=== PATIENT | female | born 1955 | race Caucasian/White ===

== ENCOUNTER → 2016-05-03 | Outpatient (CLI) | payer MEDICARE, OTHER ==
--- NOTE | 2016-05-03 16:18 | CT ---
EXAMINATION TYPE: CT abdomen wo con DATE OF EXAM: 05/03/2016 4:01 PM HISTORY: No complaints at time of service, cirrhosis per order. CT DLP: 441 mGycm. Automated Exposure Control for Dose Reduction was Utilized. TECHNIQUE: CT scan of the abdomen is performed without oral or IV contrast. COMPARISON: NONE FINDINGS: Within the limitations of a non-contrast study, the following observations are made. LUNG BASES: Some linear scarring and/or atelectasis in both lung bases is felt present. LIVER/GB: Gallbladder is not visualized presumed surgically absent. There is moderate extrahepatic an d central intrahepatic biliary dilatation felt present with common bile duct measuring up to 17 to 18 mm on coronal image 30 and axial image 21. Liver is somewhat small in size. There is 4 mm calcificat ion left hepatic lobe may be within biliary system on axial image 15. There is abrupt transition at l evel of pancreatic head without obstructing mass clearly seen. There is minor shaped low attenuation suggesting fibrosis with capsular retraction in the right hepatic lobe. PANCREAS: Calcifications throughout the fairly atrophic pancreas are identified, CT findings suggesti ng chronic pancreatitis. Dilatation of distal duct is noted. SPLEEN: Spleen is not seen and suspected surgically absent. ADRENALS: No significant abnormality is seen. KIDNEYS: No significant abnormality is seen. BOWEL: The evaluation of bowel is suboptimal secondary to lack of enteric contrast. There is no suspi cious small or large bowel dilatation seen. A low dense 9 mm structure lateral second portion of duod enum on axial image 30 could reflect lipoma or ingested fatty distal. There is suggestion of addition al lipoma third portion of duodenum on coronal image 33. Surgical sutures from bowel surgery in the m id abdomen anteriorly are identified. Slight prominence of small bowel loops at this level is seen. LYMPH NODES: No greater than 1cm abdominal lymph nodes are appreciated. OSSEOUS STRUCTURES: There is mild multilevel facet degenerative change in the mid to lower lumbar spi ne. Osseous structures are somewhat demineralized. OTHER: No significant additional abnormality is seen. IMPRESSION: Small size liver with right-sided fibrosis is present. There is moderate biliary dilatati on noted. There is abrupt narrowing or transition in the common bile duct suggesting probable strictu re. Need to further investigate by ERCP should be based on clinical and lab correlation.
== END | disposition home or self-care (01) ==
LOC: RADCTMAIN 15:31
DX: K74.0 Hepatic fibrosis (principal); K83.8 Other specified diseases of biliary tract
CPT/HCPCS: 74150

== ENCOUNTER → 2016-07-08 | Outpatient (CLI) | payer MEDICARE, OTHER ==
[2016-07-08 09:55] LABS: Bilirubin, Delta 0.6 mg/dL (0.0-0.2); Total Bilirubin 1.1 mg/dL (0.2-1.3); Total Protein 6.5 g/dL (6.3-8.2)
== END ==
LOC: LABWHC1 08:51
DX: R19.7 Diarrhea, unspecified (principal); K70.30 Alcoholic cirrhosis of liver without ascites
CPT/HCPCS: 36415; 80076; 82105; 87045; 87046; 87324; 87328; 87425

== ENCOUNTER → 2017-10-10 | Outpatient (CLI) | payer OTHER, MEDICARE ==
[2017-10-10 10:23] LABS: Basophils # (A) 0.1 k/uL (0-0.2); Basophils % (A) 2 %; Eosinophils # (A) 0.2 k/uL (0-0.7); Eosinophils % (A) 4 %; HCT 41.6 % (34.0-46.0); HGB 13.2 gm/dL (11.4-16.0); Lymphocytes # (A) 1.8 k/uL (1.0-4.8); Lymphocytes % (A) 36 %; MCH 31.2 pg (25.0-35.0); MCHC 31.8 g/dL (31.0-37.0); MCV 98.2 fL (80.0-100.0); Monocytes # (A) 0.5 k/uL (0-1.0); Monocytes % (A) 10 %; Neutrophils # (A) 2.2 k/uL (1.3-7.7); Neutrophils % (A) 45 %; Platelet Count 230 k/uL (150-450); RBC 4.23 m/uL (3.80-5.40); RDW 15.1 % (11.5-15.5); WBC 4.9 k/uL (3.8-10.6)
[2017-10-10 10:47] LABS: Albumin 3.7 g/dL (3.5-5.0); Bilirubin, Delta 0.3 mg/dL (0.0-0.2); Bilirubin,Unconjugated 0.3 mg/dL (0.0-1.1); Total Bilirubin 0.6 mg/dL (0.2-1.3); Total Protein 6.2 g/dL (6.3-8.2)
== END | disposition home or self-care (01) ==
LOC: LABWHC1 10:03
DX: K70.30 Alcoholic cirrhosis of liver without ascites (principal)
CPT/HCPCS: 36415; 80076; 82105; 82140; 85025

== ENCOUNTER → 2018-03-28 | Outpatient (CLI) | payer MEDICARE, OTHER ==
[2018-03-28 10:31] LABS: Basophils # (A) 0.1 k/uL (0-0.2); Basophils % (A) 2 %; Eosinophils # (A) 0.2 k/uL (0-0.7); Eosinophils % (A) 5 %; HCT 39.6 % (34.0-46.0); HGB 12.2 gm/dL (11.4-16.0); Hypochromasia Moderate; Lymphocytes # (A) 1.7 k/uL (1.0-4.8); Lymphocytes % (A) 33 %; MCH 30.6 pg (25.0-35.0); MCHC 30.9 g/dL (31.0-37.0); MCV 98.9 fL (80.0-100.0); Macrocytosis Slight; Mean Platelet Volume 7.7; Monocytes # (A) 0.5 k/uL (0-1.0); Monocytes % (A) 9 %; Neutrophils # (A) 2.5 k/uL (1.3-7.7); Neutrophils % (A) 49 %; Platelet Count 249 k/uL (150-450); RDW 15.8 % (11.5-15.5); WBC 5.1 k/uL (3.8-10.6)
[2018-03-28 16:42] LABS: Albumin 3.4 g/dL (3.80-4.90); Albumin/Globulin Ratio 1.62 (1.20-2.10); Anion Gap 6.7 mmol/L (4.00-12.00); Calcium 9.7 mg/dL (8.7-10.3); Carbon Dioxide 27.3 mmol/L (21.6-31.8); Globulin 2.1 g/dL (2.1-3.7); LDL Cholesterol,Calculated 37.8 mg/dL (0.0-131.0); Potassium 3.8 mmol/L (3.5-5.5); Total Bilirubin 0.6 mg/dL (0.3-1.2); Total Protein 5.5 g/dL (6.2-8.2); VLDL Calculation 12.2 mg/dL (5.00-40.00)
[2018-03-28 16:55] LABS: Alpha Fetoprotein, Tumor Mkr 2.9 ng/mL (0.0-7.9); Vitamin D 25 Hydroxy 30.8 ng/mL (30.0-100.0)
== END ==
LOC: LABWHC1 09:41
PROVIDERS: ATTEND Nurse Practitioner Family
DX: E55.9 Vitamin D deficiency, unspecified (principal); K70.30 Alcoholic cirrhosis of liver without ascites; K72.10 Chronic hepatic failure without coma; Z13.0 Encounter for screening for diseases of the blood and blood-forming organs and certain disorders involving the immune mechanism; Z13.29 Encounter for screening for other suspected endocrine disorder; Z13.220 Encounter for screening for lipoid disorders
CPT/HCPCS: 36415; 80053; 80061; 82105; 82140; 82306; 84443; 85025

== ENCOUNTER → 2018-06-02 | Outpatient (CLI) | payer MEDICARE, OTHER ==
--- NOTE | 2018-06-02 13:15 | CT ---
EXAMINATION TYPE: CT brain wo con DATE OF EXAM: 06/02/2018 COMPARISON: None HISTORY: Other signs and symptoms involving the nervous system CT DLP: [address] of the brain was performed. The ventricles, basal cisterns and sulci overlying the cerebral convexities demonstrate mild enlargem ent. Remote insult right cerebellar hemisphere. There is no evidence for intracranial hemorrhage or sulcal effacement. There is decreased attenuation about the periventricular white matter and deep white matter of both c erebral hemispheres, compatible with chronic small vessel ischemia. Differential diagnosis does inclu de demyelination. No mass effects are seen.No midline shift. Osseous calvarium is intact. If symptoms persist consider MRI. IMPRESSION: 1. Age related atrophic and chronic small vessel ischemic change without acute intracranial process s een at this time.
== END ==
LOC: RADCTMAIN 12:40
PROVIDERS: ATTEND Nurse Practitioner Family
DX: G31.1 Senile degeneration of brain, not elsewhere classified (principal); I67.82 Cerebral ischemia; Z86.73 Personal history of transient ischemic attack (TIA), and cerebral infarction without residual deficits
CPT/HCPCS: 70450

== ENCOUNTER → 2018-11-05 | Outpatient (CLI) | payer MEDICARE, OTHER ==
[2018-11-05 14:08] LABS: HCT 33.5 % (34.0-46.0); HGB 10.6 gm/dL (11.4-16.0); Hypochromasia Slight; MCH 30.1 pg (25.0-35.0); MCHC 31.7 g/dL (31.0-37.0); MCV 94.9 fL (80.0-100.0); Mean Platelet Volume 7.3; Platelet Count 236 k/uL (150-450); RBC 3.53 m/uL (3.80-5.40); RDW 15.1 % (11.5-15.5)
[2018-11-05 19:10] LABS: African American GFR (CKD) 62.8 (60.0-200.0); Albumin 3.2 g/dL (3.80-4.90); Albumin/Globulin Ratio 1.78 (1.60-3.17); Anion Gap 8.6 mmol/L (4.00-12.00); BUN/Creat Ratio 12.73 Ratio (12.00-20.00); Calcium 9.1 mg/dL (8.7-10.3); Carbon Dioxide 20.4 mmol/L (21.6-31.8); Globulin 1.8 g/dL (1.6-3.3); Potassium 3.7 mmol/L (3.5-5.5); Total Bilirubin 0.4 mg/dL (0.2-1.2)
== END | disposition home or self-care (01) ==
LOC: LABWHC1 13:53
DX: K70.30 Alcoholic cirrhosis of liver without ascites (principal); K72.10 Chronic hepatic failure without coma
CPT/HCPCS: 36415; 80053; 82105; 82140; 85027

== ENCOUNTER → 2018-12-21 | Outpatient (CLI) | payer MEDICARE, OTHER ==
--- NOTE | 2018-12-21 10:07 | US ---
EXAMINATION TYPE: US liver DATE OF EXAM: 12/21/2018 COMPARISON: CT 05/03/2016 CLINICAL HISTORY: K70.30 Alcoholic cirrhosis. GB surgically absent. Difficult and limited exam due to overlying bowel gas and patient body habitus EXAM MEASUREMENTS: Liver Length: 11.4 cm Gallbladder Wall: Surgically absent cm CBD: 1.4 cm Right Kidney: 9.0 x 4.6 x 5.0 cm Pancreas: Obscured by bowel gas Liver: Slightly nodular contour. Heterogeneous with focal intrahepatic biliary ductal dilatation and surrounding periportal hyperechogenicity in the right hepatic lobe. When correlated with the prior C T this appears as linear scarring. Echogenic foci left lobe measuring 0.7 cm representing a benign gr anuloma seen in the prior CT. Gallbladder: Surgically absent Evidence for sonographic Fierro's sign: No CBD: Dilated Right Kidney: No hydronephrosis or masses seen. Limited visualization due to overlying rib shadow IMPRESSION: 1. Heterogenous hepatic echotexture patient's known history of cirrhosis. Multifocal linear heterogen eity in the right hepatic lobe [address] of 2017 appears as scarring/fibrosis. 2. Marked extrahepatic biliary ductal dilatation is again seen although similar to the prior CT. On t he CT of 2017 stricture was suggested that could be further evaluated with MRCP or ERCP. 3. Obscuration of the pancreas by overlying bowel gas and limited evaluation of the right kidney due to overlying bowel gas and rib shadowing.
== END | disposition home or self-care (01) ==
LOC: RADUSWWP 08:52
PROVIDERS: ATTEND Internal Medicine Gastroenterology
DX: K83.8 Other specified diseases of biliary tract (principal); Z87.19 Personal history of other diseases of the digestive system
CPT/HCPCS: 76705

== ENCOUNTER → 2019-01-01 | Outpatient (CLI) | payer MEDICARE, OTHER ==
[2019-01-01 11:08] LABS: Anisocytosis Slight; HCT 37.5 % (34.0-46.0); HGB 12.2 gm/dL (11.4-16.0); MCH 30.2 pg (25.0-35.0); MCHC 32.5 g/dL (31.0-37.0); MCV 92.8 fL (80.0-100.0); Mean Platelet Volume 7.6; Platelet Count 251 k/uL (150-450); RBC 4.04 m/uL (3.80-5.40); RDW 16.6 % (11.5-15.5); WBC 4.3 k/uL (3.8-10.6)
[2019-01-01 11:27] LABS: Albumin 3.4 g/dL (3.5-5.0); Calcium 9.2 mg/dL (8.4-10.2); Potassium 3.5 mmol/L (3.5-5.1); Total Bilirubin 0.8 mg/dL (0.2-1.3)
--- NOTE | 2019-01-01 14:54 | MR ---
EXAMINATION TYPE: MR brain wo/w con DATE OF EXAM: 01/01/2019 COMPARISON: CT brain dated 06/02/2018 HISTORY: Stroke / Ataxia / Speech disorder TECHNIQUE: Multiplanar, multisequence images of the brain and brainstem is performed without and with IV contras t, utilizing 5.5 mL intravenous Gadavist . FINDINGS: Diffusion weighted images demonstrate no evidence of a recent infarct or other diffusion abnormality. There is no extra-axial fluid collection. There are confluent T2/FLAIR hyperintensities throughout the periventricular and subcortical white matter, advanced for this patient's age. Old infarcts with surrounding gliosis are seen in the bilateral cerebellar hemispheres, right greater than left. Bilate ral lacunar injuries are seen of the lentiform nuclei. The ventricular system and cisternal spaces ar e normal in size and appearance. The brain volume is age appropriate. Midline structures demonstrate normal morphology. The craniocervical junction appears within normal limits. Post contrast images demonstrate no abnormal enhancement. Multifocal narrowing of the internal medicine doctor al right arteries in their cavernous and supraclinoid portions may be in the basis of atherosclerosis but is limited secondary to extensive patient motion on the postcontrast images. The dural venous si nuses appear patent. The lungs are intact. There is rightward nasal septal deviation and mucosal hype rtrophy of the nasal turbinates. Mild mucosal thickening is seen within the ethmoid sinuses. Remainin g visualized paranasal sinuses and mastoid air cells are well aerated. IMPRESSION: Postcontrast images are limited by patient motion. 1. 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 2. Extensive nonspecific white matter change, out of proportion with the patient's age. Findings are most commonly on the basis of microangiopathy although vasculitis or demyelinating process could also be considered given the extent. 3. No acute infarct, midline shift or mass effect. No gross evidence of abnormal enhancement motion a rtifact limits the postcontrast images.
== END ==
LOC: RADMRIMAIN 10:31
PROVIDERS: ATTEND Psychiatry & Neurology Neurology
DX: I25.2 Old myocardial infarction (principal); M41.9 Scoliosis, unspecified; T14.90XA Injury, unspecified, initial encounter; R94.02 Abnormal brain scan; R90.89 Other abnormal findings on diagnostic imaging of central nervous system
CPT/HCPCS: 80053; 85027; 70553; A9585

== ENCOUNTER → 2019-01-11 | Outpatient (CLI) | payer MEDICARE, OTHER ==
[2019-01-11 14:32] LABS: Anisocytosis Slight; Basophils # (A) 0.1 k/uL (0-0.2); Basophils % (A) 3 %; Eosinophils # (A) 0.2 k/uL (0-0.7); Eosinophils % (A) 4 %; HCT 35.3 % (34.0-46.0); HGB 11.7 gm/dL (11.4-16.0); Lymphocytes # (A) 2.2 k/uL (1.0-4.8); Lymphocytes % (A) 40 %; MCH 30.1 pg (25.0-35.0); Mean Platelet Volume 7.9; Monocytes # (A) 0.4 k/uL (0-1.0); Monocytes % (A) 7 %; Neutrophils # (A) 2.3 k/uL (1.3-7.7); Neutrophils % (A) 43 %; Platelet Count 249 k/uL (150-450); RBC 3.88 m/uL (3.80-5.40); RDW 17.5 % (11.5-15.5); WBC 5.4 k/uL (3.8-10.6)
[2019-01-11 19:23] LABS: ALT 32 U/L (8-44); AST 37 U/L (13-35)
[2019-01-11 19:26] LABS: Rheumatoid Factor <4 IU/mL (0-15)
[2019-01-11 21:58] LABS: Anti-DNA, DS unit <1.0 IU/mL; DNA Double-Stranded NEGATIVE (NEGATIVE)
== END | disposition home or self-care (01) ==
LOC: LABWHC1 13:01
PROVIDERS: ATTEND Psychiatry & Neurology Neurology
DX: I63.9 Cerebral infarction, unspecified (principal)
CPT/HCPCS: 36415; 84450; 84460; 85025; 86038; 86225; 86431

== ENCOUNTER 2019-02-08 13:22 | Emergency (ER) | payer MEDICARE, OTHER ==
--- NOTE | 2019-02-08 14:16 | ED ---
Fever HPI - General Chief Complaint: Fever Stated Complaint: Fever Time Seen by Provider: 02/08/19 13:50 Source: patient, RN notes reviewed Mode of arrival: ambulatory Limitations: no limitations - History of Present Illness Initial Comments: 63-year-old female presents emergency Department with chief complaint of a fever. Patient was sent in by home care physical therapy. Patient reported fever couple days ago on initial evaluation and had a reported temperature 102 today. Patient does have chronic neck pain and states that she has a history of meningitis of the center to emergency department. Patient denies any cough cold-like symptoms denies any blurred vision, nausea, vomiting, diarrhea constipation no urinary symptoms. Patient does have underlying liver cirrhosis, multiple strokes and multiple other comorbidities. - Related Data Home Medications Medication Instructions Recorded Confirmed Calcium Carbonate [Calcium] 600 mg PO DAILY 06/02/18 02/08/19 Cholecalciferol [Vitamin D3] 1,000 unit PO DAILY 06/02/18 02/08/19 Ferrous Sulfate [Iron (65 MG 325 mg PO DAILY 06/02/18 02/08/19 Elemental)] Vitamin E 1,000 unit PO DAILY 06/02/18 02/08/19 Aspirin EC [Ecotrin Low Dose] 243 mg PO DAILY 02/08/19 02/08/19 FLUoxetine HCL [PROzac] 20 mg PO QAM 02/08/19 02/08/19 Lactulose 30 ml PO BID 02/08/19 02/08/19 Allergies Allergy/AdvReac Type Severity Reaction Status Date / Time No Known Allergies Allergy Verified 02/08/19 14:20 Review of Systems ROS Statement: Those systems with pertinent positive or pertinent negative responses have been documented in the HPI. ROS Other: All systems not noted in ROS Statement are negative. Past Medical History Past Medical History: COPD, CVA/TIA, Liver Disease, Osteoarthritis (OA) Additional Past Medical History / Comment(s): cirrhosis of liver, HX OF ALCOHOL USE, PEPTIC ULCERS, FX LEFT HIP History of Any Multi-Drug Resistant Organisms: C-DIFF Date of last positivie culture/infection: 2011 Past Surgical History: Cholecystectomy, Orthopedic Surgery Additional Past Surgical History / Comment(s): left hip, SURGERY ON SPLEEN Past Anesthesia/Blood Transfusion Reactions: No Reported Reaction Past Psychological History: Depression Smoking Status: Current every day smoker Past Alcohol Use History: None Reported Past Drug Use History: None Reported - Past Family History Mother Family Medical History: Cancer Father Family Medical History: COPD General Exam Limitations: no limitations General appearance: alert, in no apparent distress Head exam: Present: atraumatic, normocephalic, normal inspection Eye exam: Present: normal appearance, PERRL, EOMI. Absent: scleral icterus, conjunctival injection, periorbital swelling ENT exam: Present: normal exam, normal oropharynx, mucous membranes moist Neck exam: Present: normal inspection, full ROM. Absent: tenderness, meningismus, lymphadenopathy Respiratory exam: Present: normal lung sounds bilaterally. Absent: respiratory distress, wheezes, rales, rhonchi, stridor Cardiovascular Exam: Present: regular rate, normal rhythm, normal heart sounds. Absent: systolic murmur, diastolic murmur, rubs, gallop, clicks GI/Abdominal exam: Present: soft, normal bowel sounds. Absent: distended, tenderness, guarding, rebound, rigid Neurological exam: Present: alert, oriented X3, CN II-XII intact, reflexes normal. Absent: motor sensory deficit Skin exam: Present: warm, dry, intact, normal color. Absent: rash Course Vital Signs 02/08/19 02/08/19 13:24 15:24 Temperature 98.1 F 97.6 F Pulse Rate 78 71 Respiratory 13 18 Rate Blood Pressure 151/72 151/73 O2 Sat by Pulse 95 98 Oximetry Medical Decision Making - Medical Decision Making Patient's workup included labs x-ray urinalysis. There are no acute findings. Chest x-ray said possible atypical pneumonia though she has no cough at this time. Patient is afebrile and was not given any antipyretics. Patient has chronic neck pain which is now worsened usual at this time. Patient will be discharged return parameters were discussed. - Lab Data Result diagrams: 02/08/19 14:28 02/08/19 14:28 Lab Results 02/08/19 02/08/19 02/08/19 Range/Units 14:28 14:28 14:28 WBC 5.9 (3.8-10.6) k/uL RBC 3.80 (3.80-5.40) m/uL Hgb 11.7 (11.4-16.0) gm/dL Hct 35.9 (34.0-46.0) % MCV 94.5 (80.0-100.0) fL MCH 30.8 (25.0-35.0) pg MCHC 32.6 (31.0-37.0) g/dL RDW 15.9 H (11.5-15.5) % Plt Count 263 (150-450) k/uL Neutrophils % 33 % Lymphocytes % 48 % Monocytes % 9 % Eosinophils % 4 % Basophils % 2 % Neutrophils # 1.9 (1.3-7.7) k/uL Lymphocytes # 2.9 (1.0-4.8) k/uL Monocytes # 0.5 (0-1.0) k/uL Eosinophils # 0.2 (0-0.7) k/uL Basophils # 0.1 (0-0.2) k/uL Sodium 144 (137-145) mmol/L Potassium 3.6 (3.5-5.1) mmol/L Chloride 109 H (98-107) mmol/L Carbon Dioxide 29 (22-30) mmol/L Anion Gap 6 mmol/L BUN 15 (7-17) mg/dL Creatinine 1.36 H (0.52-1.04) mg/dL Est GFR (CKD-EPI)AfAm 49 (>60 ml/min/1.73 sqM) Est GFR (CKD-EPI)NonAf 42 (>60 ml/min/1.73 sqM) Glucose 119 H (74-99) mg/dL Plasma Lactic Acid Harrison (0.7-2.0) mmol/L Calcium 9.7 (8.4-10.2) mg/dL Total Bilirubin 0.6 (0.2-1.3) mg/dL AST 35 (14-36) U/L ALT 22 (9-52) U/L Alkaline Phosphatase 85 (38-126) U/L Total Protein 6.2 L (6.3-8.2) g/dL Albumin 3.5 (3.5-5.0) g/dL Urine Color Urine Appearance (Clear) Urine pH (5.0-8.0) Ur Specific [place] (1.001-1.035) Urine Protein (Negative) Urine Glucose (UA) (Negative) Urine Ketones (Negative) Urine Blood (Negative) Urine Nitrite (Negative) Urine Bilirubin (Negative) Urine Urobilinogen (<2.0) mg/dL Ur Leukocyte Esterase (Negative) Influenza Type A RNA Not Detected (Not Detectd) Influenza Type B (PCR) Not Detected (Not Detectd) 02/08/19 02/08/19 Range/Units 14:28 15:12 WBC (3.8-10.6) k/uL RBC (3.80-5.40) m/uL Hgb (11.4-16.0) gm/dL Hct (34.0-46.0) % MCV (80.0-100.0) fL MCH (25.0-35.0) pg MCHC (31.0-37.0) g/dL RDW (11.5-15.5) % Plt Count (150-450) k/uL Neutrophils % % Lymphocytes % % Monocytes % % Eosinophils % % Basophils % % Neutrophils # (1.3-7.7) k/uL Lymphocytes # (1.0-4.8) k/uL Monocytes # (0-1.0) k/uL Eosinophils # (0-0.7) k/uL Basophils # (0-0.2) k/uL Sodium (137-145) mmol/L Potassium (3.5-5.1) mmol/L Chloride (98-107) mmol/L Carbon Dioxide (22-30) mmol/L Anion Gap mmol/L BUN (7-17) mg/dL Creatinine (0.52-1.04) mg/dL Est GFR (CKD-EPI)AfAm (>60 ml/min/1.73 sqM) Est GFR (CKD-EPI)NonAf (>60 ml/min/1.73 sqM) Glucose (74-99) mg/dL Plasma Lactic Acid Harrison 1.4 (0.7-2.0) mmol/L Calcium (8.4-10.2) mg/dL Total Bilirubin (0.2-1.3) mg/dL AST (14-36) U/L ALT (9-52) U/L Alkaline Phosphatase (38-126) U/L Total Protein (6.3-8.2) g/dL Albumin (3.5-5.0) g/dL Urine Color Yellow Urine Appearance Clear (Clear) Urine pH 5.5 (5.0-8.0) Ur Specific [place] 1.010 (1.001-1.035) Urine Protein Negative (Negative) Urine Glucose (UA) Negative (Negative) Urine Ketones Negative (Negative) Urine Blood Negative (Negative) Urine Nitrite Negative (Negative) Urine Bilirubin Negative (Negative) Urine Urobilinogen <2.0 (<2.0) mg/dL Ur Leukocyte Esterase Negative (Negative) Influenza Type A RNA (Not Detectd) Influenza Type B (PCR) (Not Detectd) Disposition Clinical Impression: Neck pain Disposition: HOME SELF-CARE Condition: Stable Instructions (If sedation given, give patient instructions): Neck Pain (ED) Additional Instructions: Please return to the Emergency Department if symptoms worsen or any other concerns. Is patient prescribed a controlled substance at d/c from ED?: No Referrals: Inga Tabor III, MD [Primary Care Provider] - 1-2 days Time of Disposition: 15:54
[2019-02-08 14:51] LABS: Basophils # (A) 0.1 k/uL (0-0.2); Basophils % (A) 2 %; Eosinophils # (A) 0.2 k/uL (0-0.7); Eosinophils % (A) 4 %; HCT 35.9 % (34.0-46.0); HGB 11.7 gm/dL (11.4-16.0); Lymphocytes # (A) 2.9 k/uL (1.0-4.8); Lymphocytes % (A) 48 %; MCH 30.8 pg (25.0-35.0); MCHC 32.6 g/dL (31.0-37.0); MCV 94.5 fL (80.0-100.0); Mean Platelet Volume 6.5; Monocytes # (A) 0.5 k/uL (0-1.0); Monocytes % (A) 9 %; Neutrophils # (A) 1.9 k/uL (1.3-7.7); Neutrophils % (A) 33 %; Platelet Count 263 k/uL (150-450); RDW 15.9 % (11.5-15.5); WBC 5.9 k/uL (3.8-10.6)
--- NOTE | 2019-02-08 14:54 | XR ---
EXAMINATION TYPE: XR chest 2V DATE OF EXAM: 02/08/2019 COMPARISON: 03/04/2009 HISTORY: Fever, history of COPD TECHNIQUE: Frontal and lateral views of the chest are obtained. FINDINGS: There is no focal air space opacity, pleural effusion, or pneumothorax seen. Interstitial prominence is seen throughout. The cardiac silhouette size is within normal limits. Pulmonary hyper inflation and flattening of the diaphragms represents underlying COPD. Mild degenerative changes of t he spine. The osseous structures are intact. IMPRESSION: Interstitial prominence throughout activity seen on the basis of atypical pneumonia, ear ly fluid overload or bronchitis. Underlying COPD is seen.
[2019-02-08 14:59] LABS: Albumin 3.5 g/dL (3.5-5.0); Calcium 9.7 mg/dL (8.4-10.2); Potassium 3.6 mmol/L (3.5-5.1); Total Bilirubin 0.6 mg/dL (0.2-1.3); Total Protein 6.2 g/dL (6.3-8.2)
[2019-02-08 15:24] LABS: Appearance,Urine Clear (Clear); Bilirubin,Urine Negative (Negative); Blood,Urine Negative (Negative); Color,Urine Yellow; Glucose,Urine (UA) Negative (Negative); Ketones,Urine Negative (Negative); Leukocyte Esterase,Urine Negative (Negative); Nitrite,Urine Negative (Negative); PH, Urine 5.5 (5.0-8.0); Protein,Urine Negative (Negative); Urobilinogen,Urine <2.0 mg/dL (<2.0)
[2019-02-08 15:25] VITALS: BP 151/73; PULSE 71; RESP 18
[2019-02-08 15:29] VITALS: TEMP 97.6
== END 2019-02-08 16:06 | disposition home or self-care (01) ==
LOC: EC 13:22
DX: M54.2 Cervicalgia (principal); G89.29 Other chronic pain; R50.9 Fever, unspecified; F32.9 Major depressive disorder, single episode, unspecified; F17.200 Nicotine dependence, unspecified, uncomplicated; Z86.69 Personal history of other diseases of the nervous system and sense organs; Z86.73 Personal history of transient ischemic attack (TIA), and cerebral infarction without residual deficits; Z87.11 Personal history of peptic ulcer disease; Z87.81 Personal history of (healed) traumatic fracture; Z90.49 Acquired absence of other specified parts of digestive tract; Z98.890 Other specified postprocedural states; Z79.82 Long term (current) use of aspirin; Z79.899 Other long term (current) drug therapy
CPT/HCPCS: 36415; 71046; 80053; 81003; 83605; 85025; 87040; 87502; 99283

== ENCOUNTER → 2019-11-24 | Outpatient (CLI) | payer MEDICARE, OTHER ==
[2019-11-24 11:17] LABS: HCT 35.7 % (34.0-46.0); HGB 11.5 gm/dL (11.4-16.0); Hypochromasia Slight; MCH 31.4 pg (25.0-35.0); MCHC 32.3 g/dL (31.0-37.0); MCV 97.4 fL (80.0-100.0); Mean Platelet Volume 8.3; Platelet Count 190 k/uL (150-450); RBC 3.67 m/uL (3.80-5.40); RDW 14.7 % (11.5-15.5); WBC 6.2 k/uL (3.8-10.6)
[2019-11-24 17:16] LABS: INR 1.13 (0.90-1.11)
[2019-11-24 17:41] LABS: African American GFR (CKD) 46.6 (60.0-200.0); Albumin 3.7 g/dL (3.80-4.90); Albumin/Globulin Ratio 1.68 (1.60-3.17); Anion Gap 5.2 mmol/L (4.00-12.00); BUN/Creat Ratio 8.57 Ratio (12.00-20.00); Carbon Dioxide 25.8 mmol/L (21.6-31.8); Globulin 2.2 g/dL (1.6-3.3); Non-African American GFR(CKD) 40.2 (60.0-200.0); Potassium 4.7 mmol/L (3.5-5.5); Total Bilirubin 0.6 mg/dL (0.2-1.2); Total Protein 5.9 g/dL (6.2-8.2)
== END | disposition home or self-care (01) ==
LOC: LABWHC1 10:23
PROVIDERS: ATTEND Physician Assistant
DX: K70.30 Alcoholic cirrhosis of liver without ascites (principal)
CPT/HCPCS: 36415; 80053; 82105; 85027; 85610

== ENCOUNTER → 2020-05-16 | Outpatient (CLI) | payer MEDICARE, OTHER ==
[~2020-05-16] MED LIST: IODINE/POTASS IOD (LUGOLS) BOTTLE TOPICAL ONE
--- NOTE | 2020-05-16 15:59 | NM ---
EXAMINATION TYPE: NM DatScan Brain SPECT DATE OF EXAM: 05/16/2020 COMPARISON: NONE HISTORY: Tremor unspecified, R 25.1 TECHNIQUE: 10 drops of Lugol's solution was administered 1 hour prior to injection as a thyroid bloc bi agent. After the administration of 4.35 mCi I-123 Ioflupane DaTscan. Images obtained 3 hours p ost injection. SPECT images of the brain were acquired with axial and coronal reconstructions. FINDINGS: Normal distribution of radiopharmaceutical uptake present along the striata, uptake is mildly asymmet kinjal, overall slightly diminished. Uptake is comma shaped bilaterally. IMPRESSION: Distribution thought to be normal along the striata as described
== END | disposition home or self-care (01) ==
LOC: RADNMMAIN 10:46
PROVIDERS: ATTEND Psychiatry & Neurology Neurology
DX: R25.1 Tremor, unspecified (principal); R41.3 Other amnesia
CPT/HCPCS: 78803; A9584

== ENCOUNTER → 2020-06-07 | Outpatient (CLI) | payer MEDICARE, OTHER ==
[2020-06-07 15:25] LABS: Albumin 3.5 g/dL (3.80-4.90); Albumin/Globulin Ratio 1.75 (1.60-3.17); Bilirubin, Conjugated 0.3 mg/dL (0.20-0.40); Bilirubin,Unconjugated 0.4 mg/dL; Total Bilirubin 0.7 mg/dL (0.3-1.2); Total Protein 5.5 g/dL (6.2-8.2)
[2020-06-07 15:27] LABS: HCT 32.4 % (37.2-46.3); HGB 10.8 g/dL (12.0-15.0); MCH 30.6 pg (27.0-32.0); MCHC 33.3 g/dL (32.0-37.0); MCV 91.8 fL (80.0-97.0); Mean Platelet Volume 12.2 fL (9.5-12.2); Platelet Count 253 X 10*3/uL (140-440); RBC 3.53 X 10*6/uL (4.10-5.20); RDW 17.4 % (11.5-14.5)
[2020-06-07 17:11] LABS: INR 1.14 (0.90-1.11); Prothrombin Time 12.3 sec (9.9-11.9)
== END | disposition home or self-care (01) ==
LOC: LABWHC1 10:00
PROVIDERS: ATTEND Physician Assistant
DX: K70.30 Alcoholic cirrhosis of liver without ascites (principal)
CPT/HCPCS: 36415; 80076; 82105; 82140; 85027; 85610

== ENCOUNTER → 2020-09-05 | Outpatient (CLI) | payer MEDICARE, OTHER ==
[2020-09-05 11:42] LABS: Calcium 9.1 mg/dL (8.4-10.2); Potassium 4.1 mmol/L (3.5-5.1); Total Protein 5.6 g/dL (6.3-8.2)
--- NOTE | 2020-09-05 14:50 | US ---
EXAMINATION TYPE: US venous doppler duplex LE RT DATE OF EXAM: 09/05/2020 11:39 AM COMPARISON: NONE CLINICAL HISTORY: R60.9 Edema, unspecified,F41.1 Generalized anxiety disorder. Edema SIDE PERFORMED: Right TECHNIQUE: The lower extremity deep venous system is examined utilizing real time linear array sonog hortensia with graded compression, doppler sonography and color-flow sonography. VESSELS IMAGED: Common Femoral Vein Deep Femoral Vein Greater Saphenous Vein * Femoral Vein Popliteal Vein Small Saphenous Vein * Proximal Calf Veins (* superficial vessels) Right Leg: Negative for DVT IMPRESSION: Grayscale, color doppler, spectral doppler imaging performed of the deep veins of the lo wer extremities. There is normal flow, compressibility, vascular waveforms.
== END | disposition home or self-care (01) ==
LOC: RADUSWWP 10:53
PROVIDERS: ATTEND Family Medicine
DX: F41.1 Generalized anxiety disorder (principal); R60.9 Edema, unspecified
CPT/HCPCS: 80053; 80061; 83880; 84443; 85379

== ENCOUNTER → 2020-11-09 | Outpatient (CLI) | payer MEDICARE, OTHER ==
[2020-11-10 01:00] LABS: African American GFR (CKD) 50.6 (60.0-200.0); Albumin 3.5 g/dL (3.80-4.90); Anion Gap 5.5 mmol/L (4.00-12.00); BUN/Creat Ratio 9.23 Ratio (12.00-20.00); Calcium 9.6 mg/dL (8.7-10.3); Carbon Dioxide 28.5 mmol/L (21.6-31.8); Non-African American GFR(CKD) 43.6 (60.0-200.0); Potassium 4.8 mmol/L (3.5-5.5)
== END | disposition home or self-care (01) ==
LOC: LABWHC1 12:24
PROVIDERS: ATTEND Internal Medicine
DX: I50.9 Heart failure, unspecified (principal)
CPT/HCPCS: 36415; 80069

== ENCOUNTER → 2020-11-21 | Day surgery (SDC) | payer MEDICARE, OTHER ==
[2020-11-17 11:49] VITALS: BMI 19.9
[~2020-11-21] MED LIST changes: -IODINE/POTASS IOD (LUGOLS) BOTTLE TOPICAL ONE; +MIDAZOLAM 2 MG/2 ML VIAL IVP ONE; +SODIUM CHLORIDE 0.9% 500 ML 500 ML IV ONE; +fentaNYL (PF) 50 MCG/ML 2 ML AMP ONE
[2020-11-21] MEDS: BENZOCAINE SPRAY 1 CAN MUCOUS MEM ONE ×2 (07:25→07:31)
[2020-11-21 07:26] VITALS: TEMP 98.2
[2020-11-21] MEDS: fentaNYL (PF) 50 MCG/ML 2 ML AMP IVP ONE ×3 (07:34→07:37)
[2020-11-21] MEDS: MIDAZOLAM 2 MG/2 ML VIAL IVP ONE ×2 (07:34→07:35)
[2020-11-21 07:55] VITALS: RESP 16
[2020-11-21 20:00] VITALS: BP 145/66; PULSE 70
--- NOTE | 2020-11-21 22:36 | P.TEE ---
Description of Procedure(s): Procedure performed: Transesophageal Echocardiogram with color flow doppler, pulsed wave doppler and continuous wave doppler, moderate conscious sedation Moderate conscious sedation: Moderate conscious sedation was supplied with direct supervision of myself using Versed and Fentanyl. Complications: none Indications: moderate to severe mitral regurgitation History: Patient is a pleasant 65-year-old female with history of cirrhosis, prior alcohol abuse, moderate to severe mitral regurgitation. She has been experiencing some increased dyspnea on exertion and heart failure type symptoms and therefore transthoracic echo was performed which showed concern of moderate to severe mitral regurgitation. Therefore JONA was recommended. PROCEDURE: After the risks, benefits and alternatives of the above mentioned procedure was explained in detail with the patient, informed consent was obtained. Patient was brought to the lab in a fasting state. Patient was given IV Versed and Fentanyl for sedation. The throat was sprayed with Hurricane to anesthetize the throat. A lubricated Omni probe was then introduced into the esophagus and stomach and multiple views were obtained. 2D echo with color flow doppler, pulsed wave doppler and continuous wave doppler was utilized. Agitated saline bubbles were injected to assess for any intra-atrial shunt. The probe was then removed. Patient tolerated the procedure well. Patient was transferred to the post procedure area in stable and satisfactory condition. FINDINGS: 1. The aortic valve is trricuspid and function normally. 2. The mitral valve appears be normal with moderate mitral regurgitation. There is no systolic blunting of the left upper pulmonary vein. 3. Tricuspid valve appears to be normal. 4. There is a PFO by agitated saline. 5. Left atrial appendage is free of clot. 6. Left ventricular size and function appear to be normal with EF 55%.
== END ==
LOC: CATHCVL 06:38
PROVIDERS: ATTEND Internal Medicine
DX: I34.0 Nonrheumatic mitral (valve) insufficiency (principal); Q21.1 Atrial septal defect; K70.30 Alcoholic cirrhosis of liver without ascites; Z86.73 Personal history of transient ischemic attack (TIA), and cerebral infarction without residual deficits; F17.210 Nicotine dependence, cigarettes, uncomplicated; Z82.49 Family history of ischemic heart disease and other diseases of the circulatory system; I10 Essential (primary) hypertension; I65.22 Occlusion and stenosis of left carotid artery; Z79.899 Other long term (current) drug therapy
CPT/HCPCS: 93312; 93320; 93325; J2250; J3010

== ENCOUNTER → 2021-03-28 | Outpatient (CLI) | payer MEDICARE, OTHER ==
[2021-03-28 23:20] LABS: INR 1.14 (0.90-1.11); Prothrombin Time 12.5 sec (9.9-11.9)
[2021-03-29 00:10] LABS: HCT 32.4 % (37.2-46.3); HGB 10.5 g/dL (12.0-15.0); MCH 31.2 pg (27.0-32.0); MCHC 32.4 g/dL (32.0-37.0); MCV 96.1 fL (80.0-97.0); Mean Platelet Volume 12.1 fL (9.5-12.2); Platelet Count 169 X 10*3/uL (140-440); RBC 3.37 X 10*6/uL (4.10-5.20); RDW 15.2 % (11.5-14.5); WBC 5.96 X 10*3/uL (4.50-10.00)
[2021-03-29 02:32] LABS: African American GFR (CKD) 46.2 (60.0-200.0); Albumin/Globulin Ratio 1.82 (1.60-3.17); Anion Gap 10.8 mmol/L (10.00-18.00); BUN/Creat Ratio 7.79 Ratio (12.00-20.00); Blood Urea Nitrogen 10.9 mg/dL (9.0-27.0); Calcium 9.5 mg/dL (8.7-10.3); Carbon Dioxide 21.2 mmol/L (20.0-27.5); Globulin 2.2 g/dL (1.6-3.3); Non-African American GFR(CKD) 39.9 (60.0-200.0); Potassium 3.7 mmol/L (3.5-5.5); Total Bilirubin 0.5 mg/dL (0.30-1.20); Total Protein 6.2 g/dL (6.2-8.2)
== END | disposition home or self-care (01) ==
LOC: LABWHC1 15:36
PROVIDERS: ATTEND Internal Medicine Gastroenterology
DX: K70.30 Alcoholic cirrhosis of liver without ascites (principal)
CPT/HCPCS: 36415; 80053; 82105; 82140; 85027; 85610

== ENCOUNTER → 2021-08-14 | Outpatient (CLI) | payer MEDICARE, OTHER ==
[2021-08-14 19:19] LABS: HCT 35.3 % (37.2-46.3); HGB 11.5 g/dL (12.0-15.0); MCH 31.6 pg (27.0-32.0); MCHC 32.6 g/dL (32.0-37.0); Mean Platelet Volume 11.1 fL (9.5-12.2); NRBC Per 100 WBC 0 /100 WBCS (0.0-0.0); Platelet Count 223 X 10*3/uL (140-440); RBC 3.64 X 10*6/uL (4.10-5.20); RDW 15.2 % (11.5-14.5); WBC 5.99 X 10*3/uL (4.50-10.00)
[2021-08-14 19:45] LABS: INR 1.09 (0.90-1.11); Prothrombin Time 11.9 sec (9.9-11.9)
[2021-08-14 20:12] LABS: African American GFR (CKD) 34.8 (60.0-200.0); Albumin 4.1 g/dL (3.8-4.9); Albumin/Globulin Ratio 1.7 (1.60-3.17); Anion Gap 12.9 mmol/L (10.00-18.00); BUN/Creat Ratio 9.43 Ratio (12.00-20.00); Blood Urea Nitrogen 16.6 mg/dL (9.0-27.0); Calcium 9.6 mg/dL (8.7-10.3); Carbon Dioxide 22.2 mmol/L (20.0-27.5); Globulin 2.4 g/dL (1.6-3.3); Total Bilirubin 0.4 mg/dL (0.30-1.20); Total Protein 6.5 g/dL (6.2-8.2)
== END | disposition home or self-care (01) ==
LOC: LABWHC1 10:38
PROVIDERS: ATTEND Internal Medicine Gastroenterology
DX: K70.30 Alcoholic cirrhosis of liver without ascites (principal)
CPT/HCPCS: 36415; 80053; 82105; 82140; 85027; 85610

== ENCOUNTER → 2021-08-29 | Outpatient (CLI) | payer MEDICARE, OTHER ==
[2021-08-29 18:44] LABS: African American GFR (CKD) 36.3 (60.0-200.0); Albumin 4.4 g/dL (3.8-4.9); Albumin/Globulin Ratio 1.91 (1.60-3.17); Anion Gap 13.4 mmol/L (10.00-18.00); BUN/Creat Ratio 8.88 Ratio (12.00-20.00); Blood Urea Nitrogen 15.1 mg/dL (9.0-27.0); Carbon Dioxide 21.6 mmol/L (20.0-27.5); Globulin 2.3 g/dL (1.6-3.3); Non-African American GFR(CKD) 31.3 (60.0-200.0); Total Bilirubin 0.6 mg/dL (0.30-1.20); Total Protein 6.7 g/dL (6.2-8.2)
== END | disposition home or self-care (01) ==
LOC: LABWHC1 11:16
PROVIDERS: ATTEND Internal Medicine Gastroenterology
DX: R94.4 Abnormal results of kidney function studies (principal)
CPT/HCPCS: 36415; 80053

== ENCOUNTER → 2022-01-29 | Outpatient (CLI) | payer MEDICARE, OTHER ==
--- NOTE | 2022-01-29 10:18 | US ---
EXAMINATION TYPE: US liver DATE OF EXAM: 01/29/2022 COMPARISON: US, CT 2017. CLINICAL HISTORY: K70.30 Cirrhosis of liver. TECHNIQUE: Multiple sonographic images of the right upper quadrant are obtained. FINDINGS: EXAM MEASUREMENTS: Liver Length: 10.8 cm Gallbladder Wall: Surgically absent CBD: 1.5 cm Right Kidney: 9.4 4.7 x 4.4 cm COMMERCIAL ESTIMATOR NOTES: Pancreas: Obscured by bowel gas Liver: grossly heterogeneous, calcification noted, somewhat nodular contour, somewhat limited views due to overlying bowel gas Gallbladder: Surgically absent Evidence for sonographic Fierro's sign: no CBD: dilated with intrahepatic duct dilatation Right Kidney: wnl as seen, very limited visualization due to overlying bowel gas Visualized portion of pancreatic body unremarkable. Visualized liver heterogeneously hyperechoic ravindra lar to prior. No adjacent ascites. Some shadowing calcifications redemonstrated. Evaluation for focal masses suboptimal due to the heterogeneity. Persistent mild extrahepatic and central and hepatic joon iary dilatation not significantly changed from 2019 ultrasound even accounting for cholecystectomy. No right-sided hydronephrosis. IMPRESSION: Stable heterogeneous hyperechoic appearance of liver consistent with hepatocellular dise ase. No new ascites. Stable mild biliary dilatation.
[2022-01-29 16:11] LABS: HGB 11.6 g/dL (12.0-15.0); MCHC 33.1 g/dL (32.0-37.0); MCV 93.6 fL (80.0-97.0); Mean Platelet Volume 11.7 fL (9.5-12.2); NRBC Per 100 WBC 0 /100 WBCS (0.0-0.0); Platelet Count 268 X 10*3/uL (140-440); RBC 3.74 X 10*6/uL (4.10-5.20); RDW 15.6 % (11.5-14.5)
[2022-01-29 17:15] LABS: African American GFR (CKD) 42.2 (60.0-200.0); Albumin 4.2 g/dL (3.8-4.9); Albumin/Globulin Ratio 1.75 (1.60-3.17); Anion Gap 10.1 mmol/L (10.00-18.00); BUN/Creat Ratio 6.87 Ratio (12.00-20.00); Blood Urea Nitrogen 10.3 mg/dL (9.0-27.0); Calcium 9.9 mg/dL (8.7-10.3); Carbon Dioxide 19.9 mmol/L (20.0-27.5); Globulin 2.4 g/dL (1.6-3.3); Non-African American GFR(CKD) 36.4 (60.0-200.0); Potassium 3.9 mmol/L (3.5-5.5); Total Bilirubin 0.5 mg/dL (0.30-1.20); Total Protein 6.6 g/dL (6.2-8.2)
== END | disposition home or self-care (01) ==
LOC: RADUSWWP 09:28
PROVIDERS: ATTEND Internal Medicine Gastroenterology
DX: K83.9 Disease of biliary tract, unspecified (principal)
CPT/HCPCS: 76705; 80053; 82105; 82140; 85027

== ENCOUNTER → 2022-07-30 | Outpatient (CLI) | payer MEDICARE, OTHER ==
--- NOTE | 2022-07-30 09:36 | US ---
EXAMINATION TYPE: US liver DATE OF EXAM: 07/30/2022 COMPARISON: US 2021 CLINICAL HISTORY: K70.30 ALCOHOLIC CIRRHOSIS OF THE LIVER. TECHNIQUE: Multiple sonographic images of the right upper quadrant are obtained. FINDINGS: EXAM MEASUREMENTS: Liver Length: 10.8 cm CBD: 1.4 cm Right Kidney: 9.3 x 4.3 x 4.5 cm Pancreas: visualized portions wnl, limited by overlying midline bowel gas Liver: heterogeneous, course echotexture, somewhat nodular contour, 0.7cm calcification seen Gallbladder: surgically absent Evidence for sonographic Fierro's sign: no CBD: dilated with intrahepatic ductal dilatation Right Kidney: wnl IMPRESSION: Hepatic steatosis
[2022-07-30 15:30] LABS: HCT 36.5 % (37.2-46.3); HGB 11.7 g/dL (12.0-15.0); MCH 30.7 pg (27.0-32.0); MCHC 32.1 g/dL (32.0-37.0); MCV 95.8 fL (80.0-97.0); Mean Platelet Volume 11.8 fL (9.5-12.2); NRBC Per 100 WBC 0 /100 WBCS (0.0-0.0); Platelet Count 213 X 10*3/uL (140-440); RBC 3.81 X 10*6/uL (4.10-5.20); RDW 16.4 % (11.5-14.5); WBC 7.19 X 10*3/uL (4.50-10.00)
[2022-07-30 15:50] LABS: African American GFR (CKD) 31.5 (60.0-200.0); Albumin 4.2 g/dL (3.8-4.9); Albumin/Globulin Ratio 1.75 (1.60-3.17); BUN/Creat Ratio 8.21 Ratio (12.00-20.00); Blood Urea Nitrogen 15.6 mg/dL (9.0-27.0); Calcium 9.8 mg/dL (8.7-10.3); Globulin 2.4 g/dL (1.6-3.3); Non-African American GFR(CKD) 27.2 (60.0-200.0); Potassium 3.7 mmol/L (3.5-5.5); Total Bilirubin 0.7 mg/dL (0.30-1.20); Total Protein 6.6 g/dL (6.2-8.2)
== END | disposition home or self-care (01) ==
LOC: RADUSWWP 08:28
PROVIDERS: ATTEND Internal Medicine Gastroenterology
DX: K76.0 Fatty (change of) liver, not elsewhere classified (principal); K70.30 Alcoholic cirrhosis of liver without ascites
CPT/HCPCS: 76705; 80053; 82105; 85027

== ENCOUNTER → 2023-01-14 | Outpatient (CLI) | payer MEDICARE, OTHER ==
--- NOTE | 2023-01-14 11:52 | XR ---
EXAMINATION TYPE: XR lumbar spine 2 or 3V DATE OF EXAM: 01/14/2023 COMPARISON: None HISTORY: Back pain, fall TECHNIQUE: 3 view lumbar spine FINDINGS: There are 5 lumbar-type vertebral bodies. Pedicles are intact. Some posterior disc space na rrowing L5-S1 is present. Remaining disc heights are preserved. Vertebral body heights are preserved. Follow-up can be performed as clinically indicated. IMPRESSION: 1. Some posterior disc space narrowing L5-S1
--- NOTE | 2023-01-14 11:53 | XR ---
EXAMINATION TYPE: XR sacrum coccyx DATE OF EXAM: 01/14/2023 COMPARISON: None HISTORY: Fall, pain TECHNIQUE: 3 projections segment coccyx FINDINGS: No acute fractures are evident. Joint spaces are preserved. IMPRESSION: 1. No acute osseous abnormalities sacrum and coccyx.
== END | disposition home or self-care (01) ==
LOC: LABWHC1 10:01
PROVIDERS: ATTEND Psychiatry & Neurology Neurology
DX: M53.3 Sacrococcygeal disorders, not elsewhere classified (principal); M51.37 Other intervertebral disc degeneration, lumbosacral region
CPT/HCPCS: 72100; 72220

== ENCOUNTER → 2023-05-23 | Outpatient (CLI) | payer MEDICARE, OTHER ==
[2023-05-23 10:10] LABS: NT-Pro-B-Type Natriuretic Pept 6890 pg/mL
--- NOTE | 2023-05-23 13:09 | US ---
EXAMINATION TYPE: US liver DATE OF EXAM: 05/23/2023 COMPARISON: 07/30/22 CLINICAL INDICATION: Female, 68 years old with history of K70.30 ALCOHOLIC CIRRHOSIS OF LIVER WITHOUT ASCITE; cirrhosis f/u TECHNIQUE: Multiple sonographic images of the right upper quadrant are obtained. FINDINGS: EXAM MEASUREMENTS: Liver Length: 9.4 cm Gallbladder: Surgically absent CBD: 1.0 cm Right Kidney: 9.0x4.2x4.2 cm Pancreas: wnl Liver: small size, calcification again seen measuring 5 mm. The quitline counselor indicates a slight nodul ar contour during real-time scanning. This is not as well depicted on the provided images. No focal l esion otherwise seen. Gallbladder: Surgically absent Evidence for sonographic Fierro's sign: No CBD: dilated Right Kidney: No hydronephrosis or masses seen HOLE DIGGER NOTES: IVC distended up to 3.2cm exam very limited by overlying bowel gas, patient positioning IMPRESSION: 1. IVC distention. Consider elevated cardiac pressure/CHF or fluid overload as a possible etiology. 2. Small liver size. The quitline counselor indicates slight contour nodularity during real-time scanning. T his is not as well depicted on the provided images. Findings may reflect underlying chronic hepatocel lular disease. No focal lesion seen. 3. Bile duct remains dilated at 1.0 cm. Likely chronic postcholecystectomy status.
[2023-05-23 15:39] LABS: HCT 31.6 % (37.2-46.3); HGB 10.4 g/dL (12.0-15.0); MCH 31.8 pg (27.0-32.0); MCHC 32.9 g/dL (32.0-37.0); MCV 96.6 FL (80.0-97.0); NRBC Per 100 WBC 0.02 X 10*3/uL (0.00-0.01); Platelet Count 126 X 10*3/uL (140-440); RBC 3.27 X 10*6/uL (4.10-5.20); RDW 16.7 % (11.5-14.5); WBC 6.32 X 10*3/uL (4.50-10.00)
[2023-05-23 16:20] LABS: ALT 29 U/L (8-44); AST 32 U/L (13-35); Albumin 3.5 g/dL (3.8-4.9); Albumin/Globulin Ratio 1.59 Ratio (1.60-3.17); Alkaline Phosphatase 163 U/L (41-126); BUN/Creat Ratio 8.35 Ratio (12.00-20.00); Blood Urea Nitrogen 19.2 mg/dL (9.0-27.0); Calcium 9.4 mg/dL (8.7-10.3); Chloride 122 mmol/L (96-109); Chol/HDL Ratio 1.24 Ratio; Globulin 2.2 g/dL (1.6-3.3); Glucose 104 mg/dL (70-110); LDL Cholesterol,Calculated 14.4 mg/dL (0.0-131.0); Potassium 3.8 mmol/L (3.5-5.5); Sodium 147 mmol/L (135-145); Total Bilirubin 0.6 mg/dL (0.3-1.2); Total Protein 5.7 g/dL (6.2-8.2); VLDL Calculation 5.56 mg/dL (5.00-40.00)
== END | disposition home or self-care (01) ==
LOC: RADUSWWP 08:25
PROVIDERS: ATTEND Internal Medicine Gastroenterology
DX: I87.8 Other specified disorders of veins (principal); K70.30 Alcoholic cirrhosis of liver without ascites; R60.0 Localized edema
CPT/HCPCS: 76705; 80053; 80061; 82105; 83880; 85027

== ENCOUNTER → 2023-06-03 | Outpatient (CLI) | payer MEDICARE, OTHER ==
[2023-06-03 18:59] LABS: ALT 31 U/L (8-44); AST 38 U/L (13-35); Albumin 3.9 g/dL (3.8-4.9); Albumin/Globulin Ratio 1.62 Ratio (1.60-3.17); Alkaline Phosphatase 166 U/L (41-126); BUN/Creat Ratio 6.74 Ratio (12.00-20.00); Blood Urea Nitrogen 15.5 mg/dL (9.0-27.0); Calcium 9.8 mg/dL (8.7-10.3); Carbon Dioxide 16.3 mmol/L (21.6-31.8); Chloride 113 mmol/L (96-109); Globulin 2.4 g/dL (1.6-3.3); Glucose 116 mg/dL (70-110); Potassium 3.7 mmol/L (3.5-5.5); Sodium 142 mmol/L (135-145); Total Bilirubin 0.8 mg/dL (0.3-1.2); Total Protein 6.3 g/dL (6.2-8.2)
== END | disposition home or self-care (01) ==
LOC: LABWHC1 14:55
PROVIDERS: ATTEND Internal Medicine Interventional Cardiology
DX: R06.02 Shortness of breath (principal)
CPT/HCPCS: 36415; 80053; 82140

== ENCOUNTER → 2023-06-27 | Outpatient (CLI) | payer MEDICARE, OTHER ==
[2023-06-27 15:55] LABS: HCT 30.8 % (37.2-46.3); HGB 10.7 g/dL (12.0-15.0); MCHC 34.7 g/dL (32.0-37.0); MCV 89.3 FL (80.0-97.0); Mean Platelet Volume 12.8 FL (9.5-12.2); NRBC Per 100 WBC 0 X 10*3/uL (0.00-0.01); Platelet Count 317 X 10*3/uL (140-440); RBC 3.45 X 10*6/uL (4.10-5.20); RDW 17.8 % (11.5-14.5)
[2023-06-27 16:03] LABS: Blood Urea Nitrogen 24.5 mg/dL (9.0-27.0); Carbon Dioxide 16.3 mmol/L (21.6-31.8); Chloride 114 mmol/L (96-109); Potassium 3.9 mmol/L (3.5-5.5); Sodium 143 mmol/L (135-145)
== END | disposition home or self-care (01) ==
LOC: LABPAT 09:47
PROVIDERS: ATTEND Internal Medicine
DX: Z01.818 Encounter for other preprocedural examination (principal); I48.0 Paroxysmal atrial fibrillation; R60.0 Localized edema
CPT/HCPCS: 36415; 80051; 82565; 84520; 85027

== ENCOUNTER 2023-07-15 08:23 | Day surgery (SDC) | payer MEDICARE, OTHER ==
[~2023-07-15 08:23] MED LIST changes: +ALPRAZolam 0.25 MG TAB PO PRN; +ALPRAZolam 0.5 MG TAB PO PRN; +ASPIRIN 325 MG TAB PO STA; -MIDAZOLAM 2 MG/2 ML VIAL IVP ONE; +NITROGLYCERIN SL TABS 0.4 MG TAB SUBLINGUAL PRN; -SODIUM CHLORIDE 0.9% 500 ML 500 ML IV ONE; -fentaNYL (PF) 50 MCG/ML 2 ML AMP ONE
[2023-07-15] MEDS: SODIUM CHLORIDE 0.9% 1,000 ML in EMPTY BAG 1 BAG IV SCH (08:54)
[2023-07-15 09:01] VITALS: RESP 19; TEMP 98.1
[2023-07-15] MEDS ORDERED: HEPARIN SODIUM 1,000 UN/ML (10ML VL) ONE (09:54)
[2023-07-15] MEDS ORDERED: VERAPAMIL 2.5 MG/ML 2 ML AMP ONE (09:54)
[2023-07-15] MEDS ORDERED: fentaNYL (PF) 50 MCG/ML 2 ML AMP ONE (09:54)
[2023-07-15] MEDS ORDERED: LIDOCAINE 1% INJ 10MG/ML (20 ML MDV) ONE (09:55)
[2023-07-15] MEDS: LIDOCAINE 2% (PF) 20 MG/ML 5 ML VIAL SQ ONE (10:39)
[2023-07-15 11:05] LABS: O2 Sat Blood Gas 72.8 %
[2023-07-15 11:06] LABS: O2 Sat Blood Gas 72.4 %
[2023-07-15] MEDS: IOPAMIDOL-370 100ML BTL INTRATHECA ONE (11:12)
[2023-07-15 13:07] VITALS: BP 163/74; PULSE 60
--- NOTE | 2023-07-18 16:30 | P.CARDCATH ---
Date of Procedure: 07/15/23 Description of Procedure: PROCEDURES PERFORMED: Right heart catheterization, ultrasound guided access INDICATION: CHF, worsening kidney function, liver failure CONSENT:I have discussed the risks, benefits and alternative therapies for the above-mentioned procedure and for both sedation/analgesia as well as necessary blood product administration, if indicated, as they pertain to this patient. The patient has indicated understanding and acceptance of the risks and procedures discussed. PROCEDURE: After the risks, benefits and alternatives of the above mentioned procedure explained in detail with the patient, informed consent was obtained. Patient was taken to the catheterization lab and prepped and draped in usual fashion. Ultrasound guidance was used to assess for venousl access. 1% lidocaine was used to anesthetize the right brachial area. A 6-Kiswahili sheath was placed in the right brachial vein using modified Seldinger technique and ultrasound guidance. A 6-Kiswahili Jackson-Mychal catheter was inserted into the right atrium, right ventricle, pulmonary artery and pulmonary capillary wedge pressure position with oxygen saturations and pressure measurements obtained. Thermodilution was performed. The catheter was removed. The sheath was removed and pressure was held with hemostasis achieved. The patient tolerated the procedure well. Patient was transported back to the post catheterization holding area in stable condition. Conscious Sedation: Conscious sedation was not performed secondary to her liver disease and prior episodes of hepatic encephalopathy with sedation. Therefore only local anesthetic was used. HEMODYNAMICS: Aorta: 112/76 Right Atrium: 7 RV: 36/4 PA: 30/9 (20) PCWP: 15 PA oxygen saturation: 73% RA oxygen saturation: 72% Oxygen saturation by pulse oximeter: 97% Cardiac output by Taye: 7.1 L/m Cardiac index by Taye: 4.2 L/m/m Cardiac output by thermodilution: 8.0 L/m Cardiac index by Taye: 4.7 L/m/m FINAL IMPRESSION: 1. Relatively normal left and right sided filling pressures 2. Normal cardiac output, cardiac index PLAN: 1. Aggressive risk factor modification per most recent ACC/AHA guidelines. 2. Patient has had significant diuresis however currently still with some lower extremity edema. Edema likely noncardiac with normal left and right sided filling pressures and more likely related to liver disease, kidney disease.
== END 2023-07-15 13:04 | disposition home or self-care (01) ==
LOC: CATHCVL 08:23
PROVIDERS: ATTEND Internal Medicine
DX: I34.0 Nonrheumatic mitral (valve) insufficiency (principal); I48.0 Paroxysmal atrial fibrillation; K76.82 Hepatic encephalopathy; I11.0 Hypertensive heart disease with heart failure; I50.9 Heart failure, unspecified; K70.30 Alcoholic cirrhosis of liver without ascites; F17.210 Nicotine dependence, cigarettes, uncomplicated; Z86.73 Personal history of transient ischemic attack (TIA), and cerebral infarction without residual deficits; Z79.899 Other long term (current) drug therapy; Z79.82 Long term (current) use of aspirin
CPT/HCPCS: 93451; 76937; 85018; 82810; C1769 ×2; C1894; C1751; Q9967; J2001

== ENCOUNTER 2023-07-18 15:34 | Inpatient (IN) | payer MEDICARE, OTHER ==
[2023-07-18 15:53] LABS: Glucose,Whole Blood 111 mg/dL (70-110)
[2023-07-18 15:53] LABS: Anisocytosis Slight; Basophils # (A) 0.1 k/uL (0-0.2); Basophils % (A) 1 %; Eosinophils # (A) 0.3 k/uL (0-0.7); Eosinophils % (A) 4 %; HCT 32.2 % (34.0-46.0); HGB 9.5 gm/dL (11.4-16.0); Hypochromasia Marked; Lymphocytes % (A) 27 %; MCH 30.1 pg (25.0-35.0); MCHC 29.6 g/dL (31.0-37.0); MCV 101.5 fL (80.0-100.0); Macrocytosis Slight; Mean Platelet Volume 9.9; Monocytes # (A) 0.6 k/uL (0-1.0); Monocytes % (A) 8 %; Neutrophils # (A) 4.1 k/uL (1.3-7.7); Neutrophils % (A) 57 %; Platelet Count 230 k/uL (150-450); RBC 3.17 m/uL (3.80-5.40); RDW 17.6 % (11.5-15.5); WBC 7.2 k/uL (3.8-10.6)
[2023-07-18 16:01] LABS: INR 1.2 (<1.2); Partial Thromboplastin Time 24.8 sec (22.0-30.0); Prothrombin Time 12.4 sec (10.0-12.5)
--- NOTE | 2023-07-18 16:07 | ED ---
General Adult HPI - General Chief complaint: Altered Mental Status Stated complaint: AMS Time Seen by Provider: 07/18/23 15:36 Source: EMS Mode of arrival: EMS Limitations: altered mental status - History of Present Illness Initial comments: Dictation was produced using Dot V[employer] dictation software. please excuse any grammatical, word or spelling errors. Chief Complaint: 68-year-old female presents emergency department for altered mental status History of Present Illness: Patient 68-year-old female brought into the emergency department for altered mental status. Patient is a poor historian. She has history of A-fib, heart failure COPD stroke. Patient also has a history of liver disease alcoholism. According to EMS she was last seen normal sometime yesterday. Patient states that she feels generally weak. Unable to obtain ROS secondary to mental status - Related Data Home Medications Medication Instructions Recorded Confirmed Aspirin EC [Ecotrin Low Dose] 81 mg PO QAM 02/08/19 07/15/23 Cholecalciferol [Vitamin D3 (25 25 mcg PO QAM 01/16/23 07/10/23 Mcg = 1000 Iu)] Bumetanide [BUMEX] 2 mg PO QAM 07/10/23 07/15/23 Ferrous Sulfate [Iron (65 MG 325 mg PO QAM 07/10/23 07/10/23 Elemental)] Lactulose [Cephulac] 30 gm PO TID 07/10/23 07/10/23 Melatonin 5 mg PO HS 07/10/23 07/10/23 Omeprazole 20 mg PO QAM 07/10/23 07/10/23 Rifaximin [Xifaxan] 550 mg PO BID 07/10/23 07/15/23 Vitamin E (Dl,Tocopheryl Acet) 180 mg PO QAM 07/10/23 07/10/23 [Vitamin E (400 Iu = 180 mg)] traZODone HCL [Desyrel] 50 mg PO HS 07/10/23 07/10/23 FLUoxetine HCL 40 mg PO DAILY 07/15/23 07/15/23 Allergies Allergy/AdvReac Type Severity Reaction Status Date / Time No Known Allergies Allergy Verified 07/15/23 08:55 Review of Systems ROS Statement: Those systems with pertinent positive or pertinent negative responses have been documented in the HPI. ROS Other: All systems not noted in ROS Statement are negative. Past Medical History Past Medical History: Atrial Fibrillation, Heart Failure, COPD, CVA/TIA, GERD/Reflux, Hypertension, Liver Disease, Memory Impairment, Osteoarthritis (OA), Renal Disease, Vascular Disorder Additional Past Medical History / Comment(s): CKD, cirrhosis of liver, pancreatitis, PEPTIC ULCERS, TIA/lesions on brain from spinal meningitis yrs ago(effects speech and balance), caratid artery disease, fluctuating blood pressure, enlarged heart/value issues, edema in joon legs, hx hiatal hernia, chronic venous insufficiency-"hard time healing" History of Any Multi-Drug Resistant Organisms: None Reported Date of last positivie culture/infection: 2011 MDRO Source:: stool Past Surgical History: Cholecystectomy, Joint Replacement Additional Past Surgical History / Comment(s): SURGERY ON SPLEEN, left hip replacement, JONA Past Anesthesia/Blood Transfusion Reactions: Previous Problems w/ Anesthesia Additional Past Anesthesia/Blood Transfusion Reaction / Comment(s): "trouble waking her up" per brother Past Psychological History: Anxiety, Depression Smoking Status: Current every day smoker Past Alcohol Use History: Unable to Obtain Past Drug Use History: Unable to Obtain - Past Family History Mother Family Medical History: Cancer Additional Family Medical History / Comment(s): Breast cancer/lung cancer, enlarged heart. Father Family Medical History: Cancer, Deep Vein Thrombosis (DVT) General Exam - General Exam Comments Initial Comments: PHYSICAL EXAM: General Impression: Alert and oriented, not in acute distress, asterixis? HEENT: Normocephalic atraumatic, extra-ocular movements intact, pupils equal and reactive to light bilaterally, mucous membranes moist. Cardiovascular: Heart regular rate and rhythm Chest: Able to complete full sentences, no retractions, no tachypnea Abdomen: abdomen soft, non-tender, non-distended, no organomegaly Musculoskeletal: Pulses present and equal in all extremities, no peripheral edema Motor: no focal deficits noted Neurological: CN II-XII grossly intact, no focal motor or sensory deficits noted, NIH score of 2 Skin: Intact with no visualized rashes Psych: Normal affect and mood Limitations: altered mental status Course Vital Signs 07/18/23 07/18/23 07/18/23 15:36 15:43 15:45 Temperature 97.1 F L Pulse Rate 68 63 64 Respiratory 18 18 18 Rate Blood Pressure 158/72 158/72 158/72 O2 Sat by Pulse 98 99 99 Oximetry 07/18/23 16:00 Temperature Pulse Rate 60 Respiratory 18 Rate Blood Pressure 158/72 O2 Sat by Pulse 98 Oximetry - Reevaluation(s) Reevaluation #1: 07/18/23 16:06 Patient seen and evaluated in the ER bay #2. Patient activated code stroke. NIH score of 2. Unclear when patient's last known well was but according to EMS was sometime yesterday. She is not a candidate for alteplase due to last well yesterday. Furthermore she is allegedly prescribed anticoagulation medications. EKG Findings - EKG Comments: EKG Findings:: My EKG interpretation: Ventricular rate 61, sinus rhythm, parable 184, cures 1 1, QTc 496. No TN prolongation, no QTC prolongation, no ST or T- wave changes noted. Overall, this EKG is unremarkable Medical Decision Making - Medical Decision Making Was pt. sent in by a medical professional or institution (, PA, COREMAKER HELPER, urgent care, hospital, or retirement...) When possible be specific @ -No Did you speak to anyone other than the patient for history (EMS, parent, family, police, friend...)? What history was obtained from this source @ -EMS as described above Did you review nursing and triage notes (agree or disagree)? Why? @ -I reviewed and agree with nursing and triage notes Were old charts reviewed (outside hosp., previous admission, EMS record, old EKG, old radiological studies, urgent care reports/EKG's, retirement records)? Report findings @ -No old charts were reviewed Differential Diagnosis (chest pain, altered mental status, abdominal pain women, abdominal pain men, vaginal bleeding, musculoskeletal, weakness, fever, dyspnea, syncope, headache, dizziness, GI bleed, back pain, seizure, CVA, palpatations, mental health)? @ -Differential Altered Mental Status: Hypoglycemia, DKA, hypercapnia, ETOH, overdose, CO poisoning, trauma, myxedema coma, HTN encephalopathy, infection, encephalitis, psychosis, intercranial hemorrhage, hepatic encephalopathy, meningitis, CVA, this is not meant to be an all-inclusive list EKG interpreted by me (3pts min.). @ -See above X-rays interpreted by me (1pt min.). @ -Chest x-ray shows no acute processes CT interpreted by me (1pt min.). @ -CT scan of the brain shows no acute processes. CT angiography shows no large vessel occlusion U/S interpreted by me (1pt. min.). @ -None done What testing was considered but not performed or refused? (CT, X-rays, U/S, labs)? Why? @ -None What meds were considered but not given or refused? Why? @ -None Did you discuss the management of the patient with other professionals (professionals i.e. DrBal, PA, COREMAKER HELPER, lab, RT, psych nurse, social science manager, administrative aide, teacher, air support control officer, manager case management)? Give summary @ -Case discussed with hospitalist for admission. Case also discussed with stroke neurologist. Patient not a candidate for alteplase or thrombectomy. Was smoking cessation discussed for >3mins.? @ -No Was critical care preformed (if so, how long)? @ -Yes, 33 minutes Were there social determinants of health that impacted care today? How? (Homelessness, low income, unemployed, alcoholism, drug addiction, transportation, low edu. Level, literacy, decrease access to med. care, custodial, rehab)? @ -No Was there de-escalation of care discussed even if they declined (Discuss DNR or withdrawal of care, Hospice)? DNR status @ -No What co-morbidities impacted this encounter? (DM, HTN, Smoking, COPD, CAD, Cancer, CVA, ARF, Chemo, Hep., AIDS, mental health diagnosis, sleep apnea, morbid obesity)? @ -Liver failure Was patient admitted / discharged? Hospital course, mention meds given and route, prescriptions, significant lab abnormalities, going to OR and other pertinent info. @ -68-year-old female presents to the emergency department for altered mental status. Vital signs upon arrival are within acceptable limits. Patient did have some features that were suspicious for CVA. Patient activated code stroke. Imaging studies are negative. Patient has low NIH score and alternate diagnosis of likely hepatic encephalopathy causing her altered mental status. Laboratory evaluation shows CBC within acceptable limits. Coag panel was within acceptable limits. Creatinine is 2.47. This is around her most recent bas portillo. Ammonia level of 71. Troponin 0.055. Serum alcohol is negative. Patient be admitted. admitted to [facility].. Clinical presentation consistent with hepatic encephalopathy. Undiagnosed new problem with uncertain prognosis? @ -No Drug Therapy requiring intensive monitoring for toxicity (Heparin, Nitro, Insulin, Cardizem)? @ -No Were any procedures done? @ -No Diagnosis/symptom? Acute, or Chronic, or Acute on Chronic? Uncomplicated (without systemic symptoms) or Complicated (systemic symptoms)? @ -Hepatic encephalopathy Side effects of treatment? @ -No Exacerbation, Progression, or Severe Exacerbation? @ -No Poses a threat to life or bodily function? How? (Chest pain, USA, NV, pneumonia, PE, COPD, DKA, ARF, appy, cholecystitis, CVA, Diverticulitis, Homicidal, S uicidal, threat to staff... and all critical care pts) @ -Yes - Lab Data Result diagrams: 07/18/23 15:47 07/18/23 15:47 Lab Results 07/18/23 07/18/23 07/18/23 Range/Units 15:41 15:47 15:47 WBC 7.2 (3.8-10.6) k/uL RBC 3.17 L (3.80-5.40) m/uL Hgb 9.5 L (11.4-16.0) gm/dL Hct 32.2 L (34.0-46.0) % MCV 101.5 H (80.0-100.0) fL MCH 30.1 (25.0-35.0) pg MCHC 29.6 L (31.0-37.0) g/dL RDW 17.6 H (11.5-15.5) % Plt Count 230 (150-450) k/uL MPV 9.9 Neutrophils % 57 % Lymphocytes % 27 % Monocytes % 8 % Eosinophils % 4 % Basophils % 1 % Neutrophils # 4.1 (1.3-7.7) k/uL Lymphocytes # 2.0 (1.0-4.8) k/uL Monocytes # 0.6 (0-1.0) k/uL Eosinophils # 0.3 (0-0.7) k/uL Basophils # 0.1 (0-0.2) k/uL Hypochromasia Marked Anisocytosis Slight Macrocytosis Slight PT 12.4 (10.0-12.5) sec INR 1.2 H (<1.2) APTT 24.8 (22.0-30.0) sec Sodium (137-145) mmol/L Potassium (3.5-5.1) mmol/L Chloride (98-107) mmol/L Carbon Dioxide (22-30) mmol/L Anion Gap mmol/L BUN (7-17) mg/dL Creatinine (0.52-1.04) mg/dL Est GFR (CKD-EPI)AfAm (>60 ml/min/1.73 sqM) Est GFR (CKD-EPI)NonAf (>60 ml/min/1.73 sqM) Glucose (74-99) mg/dL POC Glucose (mg/dL) 111 H (70-110) mg/dL POC Glu Transfer Car Operator ID WenvalNika Calcium (8.4-10.2) mg/dL Total Bilirubin (0.2-1.3) mg/dL AST (14-36) U/L ALT (4-34) U/L Alkaline Phosphatase (38-126) U/L Ammonia (<30) umol/L Creatine Kinase (30-135) U/L Troponin I (0.000-0.034) ng/mL Total Protein (6.3-8.2) g/dL Albumin (3.5-5.0) g/dL Serum Alcohol mg/dL 07/18/23 07/18/23 07/18/23 Range/Units 15:47 15:47 15:47 WBC (3.8-10.6) k/uL RBC (3.80-5.40) m/uL Hgb (11.4-16.0) gm/dL Hct (34.0-46.0) % MCV (80.0-100.0) fL MCH (25.0-35.0) pg MCHC (31.0-37.0) g/dL RDW (11.5-15.5) % Plt Count (150-450) k/uL MPV Neutrophils % % Lymphocytes % % Monocytes % % Eosinophils % % Basophils % % Neutrophils # (1.3-7.7) k/uL Lymphocytes # (1.0-4.8) k/uL Monocytes # (0-1.0) k/uL Eosinophils # (0-0.7) k/uL Basophils # (0-0.2) k/uL Hypochromasia Anisocytosis Macrocytosis PT (10.0-12.5) sec INR (<1.2) APTT (22.0-30.0) sec Sodium 147 H (137-145) mmol/L Potassium 3.3 L (3.5-5.1) mmol/L Chloride 117 H (98-107) mmol/L Carbon Dioxide 21 L (22-30) mmol/L Anion Gap 9 mmol/L BUN 30 H (7-17) mg/dL Creatinine 2.47 H (0.52-1.04) mg/dL Est GFR (CKD-EPI)AfAm 23 (>60 ml/min/1.73 sqM) Est GFR (CKD-EPI)NonAf 20 (>60 ml/min/1.73 sqM) Glucose 107 H (74-99) mg/dL POC Glucose (mg/dL) (70-110) mg/dL POC Glu Transfer Car Operator ID Calcium 8.8 (8.4-10.2) mg/dL Total Bilirubin 1.2 (0.2-1.3) mg/dL AST 36 (14-36) U/L ALT 27 (4-34) U/L Alkaline Phosphatase 140 H (38-126) U/L Ammonia 71 H (<30) umol/L Creatine Kinase 66 (30-135) U/L Troponin I 0.055 H* (0.000-0.034) ng/mL Total Protein 5.7 L (6.3-8.2) g/dL Albumin 2.7 L (3.5-5.0) g/dL Serum Alcohol <10 mg/dL Disposition Clinical Impression: Hepatic encephalopathy Disposition: ADMITTED IP TO THIS [facility] Condition: Serious Referrals: None,Stated [Primary Care Provider] - 1-2 days Decision Time: 16:47
[2023-07-18 16:10] LABS: ALT 27 U/L (4-34); AST 36 U/L (14-36); African American GFR (CKD) 23 (>60 ml/min/1.73 sqM); Albumin 2.7 g/dL (3.5-5.0); Alcohol <10 mg/dL; Alkaline Phosphatase 140 U/L (38-126); Anion Gap 9 mmol/L; Blood Urea Nitrogen 30 mg/dL (7-17); Calcium 8.8 mg/dL (8.4-10.2); Carbon Dioxide 21 mmol/L (22-30); Chloride 117 mmol/L (98-107); Creatine Kinase 66 U/L (30-135); Glucose 107 mg/dL (74-99); Non-African American GFR(CKD) 20 (>60 ml/min/1.73 sqM); Potassium 3.3 mmol/L (3.5-5.1); Sodium 147 mmol/L (137-145); Total Bilirubin 1.2 mg/dL (0.2-1.3); Total Protein 5.7 g/dL (6.3-8.2)
--- NOTE | 2023-07-18 16:23 | CT ---
EXAMINATION TYPE: CT brain wo con DATE OF EXAM: 07/18/2023 COMPARISON: None HISTORY: Neuro deficit, acute, stroke suspected CT DLP: 1129.3 mGycm Automated exposure control for dose reduction was used. FINDINGS: There is a large area of low attenuation involving the cerebellum compatible with remote ischemia. Mi ld degenerative change with hypoattenuation in the white matter which is nonspecific but most typical of remote microvascular ischemia. Changes of chronic sinusitis with nasal septal deviation. Mild osteopenia. Calvarium intact. Intracra nial atherosclerotic changes. No acute hemorrhage or mass effect. No midline shift. Craniocervical junction maintained. Sella turci ca has a normal appearance. IMPRESSION: 1. No evidence of acute hemorrhage or mass effect. 2. Degenerative and remote ischemic change.
--- NOTE | 2023-07-18 16:28 | CT ---
EXAMINATION TYPE: CT angio head neck CT DLP: 401.5 mGycm, Automated exposure control for dose reduction was used. DATE OF EXAM: 07/18/2023 4:17 PM COMPARISON: None. CLINICAL INDICATION:Female, 68 years old with history of Neuro deficit, acute, stroke suspected; PHH, Neuro deficit, acute, stroke suspected TECHNIQUE: Axially acquired helical CT angiogram of the head and neck was obtained with contrast. Axi al images are supplemented with 3D reconstructions and MIP images which were post-processed at an in dependent workstation. NASCET criteria used. Contrast used:65 cc mL of Isovue 370 with IV Contrast, Oral contrast used: None. FINDINGS: CTA HEAD: No evidence of acute intracranial hemorrhage, mass effect, or midline shift. The ventricles, sulci, a nd cisterns are unremarkable. Bilaterally aphakia. The visualized portions of the internal carotid arteries, middle cerebral arteries, anterior cerebral arteries, and posterior cerebral arteries are patent. Atherosclerosis of the intracranial internal c arotid arteries.. The basilar and vertebral arteries are patent. CTA NECK: Right Carotid System: The common carotid artery and external carotid artery are patent. The carotid bifurcation demonstrate s no evidence of hemodynamically significant stenosis. The remaining portions of the internal carotid artery demonstrate normal size without significant narrowing. Left Carotid System: The common carotid artery and external carotid artery are patent. The carotid bifurcation demonstrate s no evidence of hemodynamically significant stenosis. The remaining portions of the internal carotid artery demonstrate normal size without significant narrowing. Vertebral arteries are patent without evidence hemodynamically significant stenosis. There is a 4-vessel aortic arch. The origins of the great vessels are patent. No evidence of hemodyna mically significant stenosis. Heart is enlarged for size. IMPRESSION: 1. No evidence of dissection of the cervical internal carotid arteries or vertebral arteries or any e vidence of significant stenosis at the carotid bifurcations. 2. No evidence of intracranial high-grade stenosis or intracranial aneurysm.
--- NOTE | 2023-07-18 16:35 | XR ---
EXAMINATION TYPE: XR chest 1V DATE OF EXAM: 07/18/2023 COMPARISON: 02/08/2019 HISTORY: Altered mental status TECHNIQUE: Single frontal view of the chest is obtained. FINDINGS: Hyperinflation with diffuse interstitial pattern and small bilateral effusions. The heart is enlarged. Diffuse osteopenia and degenerative change of the spine. Underlying COPD. IMPRESSION: IMPRESSION: 1. COPD with small right pleural effusion. Interstitial markings appear chronic and stable from prior exam likely representing a degree of underlying chronic interstitial lung disease favored over mild venous congestion.
[2023-07-18] MEDS ORDERED: NALOXONE 0.4 MG/ML 1 ML VIAL IV PRN (16:48)
[2023-07-18] MEDS: SODIUM CHLORIDE 0.9% 1,000 ML IV SCH (17:43)
--- NOTE | 2023-07-18 17:51 | P.HPIM ---
History of Present Illness H&P Date: 07/18/23 History of Presenting Illness: Patient is a pleasant 68-year-old female with a past medical history of alcoholic liver cirrhosis, stage IIIB chronic kidney disease, hypertension, anxiety and depression, PVD and COPD with continued nicotine dependence. She presented to the emergency department secondary to concerns of altered mental s tatus and generalized weakness believed to be secondary to elevated ammonia levels. Patient's brother at bedside reports patient was her baseline normal and went for cardiac cath on Friday with Dr. De La Torre. He reports over the last few days that she has not been taking her lactulose as she is supposed to and this morning she woke up to be very confused. He denies her having any fevers or recent infections. He reports she was just started on Bumex 2 mg daily a few weeks ago and other than that there have been no other medication changes. Patient is currently alert to person and place but pleasantly confused to time and situation. She reports feeling "crappy" and that her legs hurt. Patient's brother reports she has been experiencing chronic pain in her lower extremities for the last 6 or 7 months secondary to peripheral vascular deficiency. Patient denies having any headache, lightheadedness, dizziness, changes in vision or hearing, chest pain, palpitations, shortness of breath, or experiencing any focal numbness/tingling/weakness in her extremities. Patient reports feeling weak all over and just tired. She was evaluated in the emergency department. Vital signs upon arrival show blood pressure 158/72, heart rate 68, respiratory rate 18, temp 97.1 F, and SpO2 of 98% on room air. EKG completed showing sinus rhythm with occasional PACs at [address] brain negative for acute hemorrhage or mass effect showing degenerative and remote ischemic changes. CTA head and neck was negative for acute intracranial process and no evidence of carotid stenosis and no evidence of dissection of the cervical internal carotid or vertebral arteries. Chest x-ray showing COPD with interstitial markings consistent with chronic interstitial lung disease, and small right pleural eff usion. Labs were completed and reviewed. CBC showing macrocytic anemia with hemoglobin of 9.5 and MCH are 101.5. Coagulation profile showing slightly elevated INR of 1.2. BMP showing mild hyponatremia with sodium of 147, hypokalemia with potassium of 3.3, metabolic acidosis with hyperchloremia with chloride of 117, hypercarbia with bicarb of 21, and anion gap of 9 as well as acute kidney injury on stage IIIb chronic kidney disease with BUN of 30, creatinine of 2.47, and GFR of 20. Blood glucose was normal findings at 107. Liver profile showing elevated alkaline phosphatase of 140. Ammonia levels elevated at 71. Creatinine continues normal findings at 66. Troponin elevated at 0.055. Serum alcohol level was less than 10. Patient was admitted under our services with consultation to nephrology. Review of systems: Pertinent positives and negatives as discussed in HPI, a complete review of systems was performed and all other systems are negative. Physical exam: Vital signs reviewed and stable. General: Nontoxic, no distress and appears stated age. Chronically ill- appearing. Derm: Skin warm and dry, jaundiced Head: Atraumatic, normocephalic and symmetric. Eyes: EOMs intact, no lid lag, and anicteric sclera Mouth: no lip lesions, mucus membranes moist Cardiovascular: regular rate and rhythm with normal S1S2, systolic murmur, positive posterior tibial pulses bilaterally, and cap refill < 2 seconds. Lungs: Respirations even, regular, and unlabored on room air. Lungs CTA bilaterally, no rhonchi, no rales, no wheezing, and no accessory muscle usage. Abdominal: soft, nontender to palpation, no guarding, no appreciable organomegaly Ext: No gross muscle atrophy, no edema, no contractures. Movement and sensation intact in bilateral upper and lower extremities. Venous stasis discoloration bilateral lower extremities. Neuro: Speech clear, face symmetrical and CN II-XII grossly intact with no noted focal neuro deficits Psych: Alert and oriented to person and place and pleasantly confused to time, and situation. Appropriate and pleasant affect. GCS 14. Assessment and Plan of Care: Hepatic encephalopathy Acute kidney injury on stage IIIb chronic kidney disease with urinary retention Elevated troponin Non anion gap metabolic acidosis Macrocytic anemia, acute on chronic Alcoholic liver cirrhosis Elevated liver enzymes secondary to alcoholic liver cirrhosis Hypernatremia Elevated INR secondary to alcoholic liver cirrhosis -Order placed for lactulose 40 mg p.o. x 1 dose and increased home dose of lactulose to 30 g 4 times daily. -Patient to continue rifaximin 550 mg twice daily. -Order placed for neurochecks every 4 hours and fall precautions. -Telemetry monitoring -Trend troponins every 3 hours x 2 additional draws and repeat morning CBC to follow-up on acute on chronic macrocytic anemia and CMP to follow-up on hyponatremia, hypokalemia, metabolic acidosis,, acute kidney injury, and elevated liver enzymes. -Order placed for insertion of Gonsalez catheter secondary to urinary retention greater than 700 cc an acute kidney injury. -Consult placed to nephrology for acute kidney injury on stage IIIb chronic kidney disease. -Order placed for urinalysis and renal US -Patient placed on gentle IV fluid hydration with 0.9% normal saline at 75 cc/h and we will hold nephrotoxic medications including Bumex. Hypokalemia Potassium 3.3 order placed for K-Dur 40 mEq IVPB. We will continue to monitor with repeat morning labs and replace abnormal electrolyte values if indicated based upon these results. Anxiety and depression -Patient to continue daily medication regimen with Prozac 40 mg daily, COPD with continued nicotine dependence, not in acute exacerbation -Recommend smoking cessation. Order placed for nicotine patch daily 14 mg daily. -Order placed for DuoNebs 4 times daily as needed for shortness of breath and/or wheezing. Data and imaging reviewed: -As stated above in HPI The patient is admitted with an anticipated greater than 2 midnight stay for evaluation of hepatic encephalopathy CODE STATUS: Full code DVT prophylaxis: SCDs and ERIC jamil Anticipated discharge date: Clinical course to determine Anticipated discharge place: Home Patient was seen independently by Nurse Practitioner. This document was prepared using [employer] dictation software. Please allow for errors in design manager while rare they do occur. I reviewed the documentation as provided by the EUNICE above, who is the original author of this note. I agree with the documented assessment and plan, with the following changes: none Past Medical History Past Medical History: Atrial Fibrillation, Heart Failure, COPD, CVA/TIA, GERD/Reflux, Hypertension, Liver Disease, Memory Impairment, Osteoarthritis (OA), Renal Disease, Vascular Disorder Additional Past Medical History / Comment(s): CKD, cirrhosis of liver, pancreatitis, PEPTIC ULCERS, TIA/lesions on brain from spinal meningitis yrs ago(effects speech and balance), caratid artery disease, fluctuating blood pressure, enlarged heart/value issues, edema in joon legs, hx hiatal hernia, chronic venous insufficiency-"hard time healing" History of Any Multi-Drug Resistant Organisms: None Reported Date of last positivie culture/infection: 2011 MDRO Source:: stool Past Surgical History: Cholecystectomy, Joint Replacement Additional Past Surgical History / Comment(s): SURGERY ON SPLEEN, left hip replacement, JONA Past Anesthesia/Blood Transfusion Reactions: Previous Problems w/ Anesthesia Additional Past Anesthesia/Blood Transfusion Reaction / Comment(s): "trouble waking her up" per brother Past Psychological History: Anxiety, Depression Smoking Status: Current every day smoker Past Alcohol Use History: Unable to Obtain Past Drug Use History: Unable to Obtain - Past Family History Mother Family Medical History: Cancer Additional Family Medical History / Comment(s): Breast cancer/lung cancer, enlarged heart. Father Family Medical History: Cancer, Deep Vein Thrombosis (DVT) Medications and Allergies Home Medications Medication Instructions Recorded Confirmed Type Aspirin EC [Ecotrin Low Dose] 81 mg PO DAILY 02/08/19 07/18/23 History Cholecalciferol [Vitamin D3 (25 25 mcg PO DAILY 01/16/23 07/18/23 History Mcg = 1000 Iu)] Bumetanide [BUMEX] 2 mg PO DAILY 07/10/23 07/18/23 History Ferrous Sulfate [Iron (65 MG 325 mg PO DAILY 07/10/23 07/18/23 History Elemental)] Lactulose [Cephulac] 30 gm PO TID 07/10/23 07/18/23 History Melatonin 5 mg PO HS 07/10/23 07/18/23 History Omeprazole 20 mg PO DAILY 07/10/23 07/18/23 History Rifaximin [Xifaxan] 550 mg PO BID 07/10/23 07/18/23 History Vitamin E (Dl,Tocopheryl Acet) 400 unit PO DAILY 07/10/23 07/18/23 History [Vitamin E (400 Iu = 180 mg)] traZODone HCL [Desyrel] 50 mg PO HS 07/10/23 07/18/23 History FLUoxetine HCL 40 mg PO DAILY 07/15/23 07/18/23 History Allergies Allergy/AdvReac Type Severity Reaction Status Date / Time No Known Allergies Allergy Verified 07/18/23 17:03 Physical Exam Osteopathic Statement: *. No significant issues noted on an osteopathic structural exam other than those noted in the History and Physical/Consult. Vitals: Vital Signs Temp Pulse Resp BP Pulse Ox 07/18/23 16:00 60 18 158/72 98 07/18/23 15:45 64 18 158/72 99 07/18/23 15:43 63 18 158/72 99 07/18/23 15:36 97.1 F L 68 18 [id number] 98 Intake and Output 07/18/23 07/18/23 07/18/23 06:59 14:59 22:59 Other: Weight 74.843 kg Results CBC & Chem 7: 07/18/23 15:47 07/18/23 15:47 Labs: Abnormal Lab Results - Last 24 Hours (Table) 07/18/23 07/18/23 07/18/23 Range/Units 15:41 15:47 15:47 RBC 3.17 L (3.80-5.40) m/uL Hgb 9.5 L (11.4-16.0) gm/dL Hct 32.2 L (34.0-46.0) % MCV 101.5 H (80.0-100.0) fL MCHC 29.6 L (31.0-37.0) g/dL RDW 17.6 H (11.5-15.5) % INR 1.2 H (<1.2) Sodium (137-145) mmol/L Potassium (3.5-5.1) mmol/L Chloride (98-107) mmol/L Carbon Dioxide (22-30) mmol/L BUN (7-17) mg/dL Creatinine (0.52-1.04) mg/dL Glucose (74-99) mg/dL POC Glucose (mg/dL) 111 H (70-110) mg/dL Alkaline Phosphatase (38-126) U/L Ammonia (<30) umol/L Troponin I (0.000-0.034) ng/mL Total Protein (6.3-8.2) g/dL Albumin (3.5-5.0) g/dL 07/18/23 07/18/23 07/18/23 Range/Units 15:47 15:47 15:47 RBC (3.80-5.40) m/uL Hgb (11.4-16.0) gm/dL Hct (34.0-46.0) % MCV (80.0-100.0) fL MCHC (31.0-37.0) g/dL RDW (11.5-15.5) % INR (<1.2) Sodium 147 H (137-145) mmol/L Potassium 3.3 L (3.5-5.1) mmol/L Chloride 117 H (98-107) mmol/L Carbon Dioxide 21 L (22-30) mmol/L BUN 30 H (7-17) mg/dL Creatinine 2.47 H (0.52-1.04) mg/dL Glucose 107 H (74-99) mg/dL POC Glucose (mg/dL) (70-110) mg/dL Alkaline Phosphatase 140 H (38-126) U/L Ammonia 71 H (<30) umol/L Troponin I 0.055 H* (0.000-0.034) ng/mL Total Protein 5.7 L (6.3-8.2) g/dL Albumin 2.7 L (3.5-5.0) g/dL
[2023-07-18] MEDS: LACTULOSE 200 GM/300 ML (FROM 1/2 GAL JUG) RECTAL ONE (18:08)
[2023-07-18] MEDS: LACTULOSE 20 GM/30 ML CUP PO SCH ×2 (18:08→21:48)
[2023-07-18] MEDS: LACTULOSE 20 GM/30 ML CUP PO ONE (18:15)
[2023-07-18 18:21] LABS: Appearance,Urine Clear (Clear); Bacteria,Urine Occasional /hpf; Bilirubin,Urine Negative (Negative); Blood,Urine Negative (Negative); Color,Urine Colorless; Glucose,Urine (UA) Negative (Negative); Ketones,Urine Negative (Negative); Leukocyte Esterase,Urine Moderate (Negative); Mucus,Urine Rare /hpf; Nitrite,Urine Negative (Negative); PH, Urine 5.5 (5.0-8.0); Protein,Urine Negative (Negative); RBC,Urine <1 /hpf (0-5); Specific Gravity,Urine 1.007 (1.001-1.035); Urobilinogen,Urine <2.0 mg/dL (<2.0); WBC,Urine 5 /hpf (0-5)
[2023-07-18] MEDS ORDERED: IPRATROPIUM-ALBUTEROL 3 ML NEB INHALATION PRN (18:24)
[2023-07-18] MEDS: POTASSIUM CHLORIDE 10 MEQ in WATER FOR INJECTION 1 100ML.BAG IVPB SCH (18:39)
--- NOTE | 2023-07-18 19:06 | US ---
EXAMINATION TYPE: US renals and bladder DATE OF EXAM: 07/18/2023 COMPARISON: NONE CLINICAL INDICATION: Female, 68 years old with history of urinary retention and CATIE;urinary retention cirrhosis limited exam patient postioning and bowel gas. EXAM MEASUREMENTS: Right Kidney: 9.3 x 4.2 x 4.0 cm Left Kidney: 8.8 x 5.4 x 3.8 cm Right Kidney: Limited due to bowel gas Left Kidney: limited due to bowel gas and rib shadowing. Bladder: low level echoes visualized Bilateral Jets seen: no Bilateral limited due to patient body habitus and bowel gas. There is no definite solid renal mass, r enal calcification or hydronephrosis. IMPRESSION: Limited study but no significant abnormality seen.
[2023-07-18] MEDS: RIFAXIMIN 550 MG TABLET PO SCH (22:20)
[2023-07-19] MEDS: ACETAMINOPHEN TAB 325 MG TAB PO PRN (02:53)
[2023-07-19] MEDS: ASPIRIN 81 MG PO SCH (09:08)
[2023-07-19] MEDS: FLUoxetine HCL 20 MG CAP PO SCH (09:18)
[2023-07-19] MEDS: NICOTINE 14MG/24HR PATCH TRANSDERM SCH (09:18)
[2023-07-19] MEDS: FERROUS SULFATE 325 MG TAB PO SCH (09:19)
[2023-07-19 10:05] LABS: Anisocytosis Slight; HCT 31.9 % (34.0-46.0); HGB 9.5 gm/dL (11.4-16.0); Hypochromasia Marked; MCH 30.7 pg (25.0-35.0); MCHC 29.9 g/dL (31.0-37.0); MCV 102.7 fL (80.0-100.0); Macrocytosis Moderate; Mean Platelet Volume 10.4; Platelet Count 232 k/uL (150-450); RBC 3.11 m/uL (3.80-5.40); RDW 17.6 % (11.5-15.5); WBC 8.1 k/uL (3.8-10.6)
[2023-07-19 10:19] LABS: ALT 26 U/L (4-34); AST 37 U/L (14-36); African American GFR (CKD) 24 (>60 ml/min/1.73 sqM); Albumin 2.6 g/dL (3.5-5.0); Alkaline Phosphatase 136 U/L (38-126); Anion Gap 7 mmol/L; Blood Urea Nitrogen 29 mg/dL (7-17); Calcium 8.7 mg/dL (8.4-10.2); Carbon Dioxide 20 mmol/L (22-30); Chloride 120 mmol/L (98-107); Glucose 80 mg/dL (74-99); Magnesium 2.3 mg/dL (1.6-2.3); Non-African American GFR(CKD) 20 (>60 ml/min/1.73 sqM); Potassium 3.3 mmol/L (3.5-5.1); Sodium 147 mmol/L (137-145); Total Bilirubin 1.1 mg/dL (0.2-1.3); Total Protein 5.6 g/dL (6.3-8.2)
--- NOTE | 2023-07-19 10:59 | P.NPCON ---
History of Present Illness - Reason for Consult acute renal failure, chronic renal failure - History of Present Illness Reason for consultation: Acute kidney injury on chronic kidney disease History of present illness: Patient is a 68-year-old female seen in renal consultation for acute kidney injury on chronic kidney disease. Patient has chronic kidney disease stage IIIb with baseline creatinine 1.5-1.8. Creatinine was as high as 3.0 dated June 27, 2023. On admission yesterday was 2.7 and is 2.4 today. She is currently receiving IV fluids. Patient came to the hospital due to generalized weakness and dizziness. She also states she has had loose bowel movements the last few days. She denies use of nonsteroidals. Denies history of diabetes. Denies history of coronary artery disease. Patient does have history of alcohol abuse and liver cirrhosis. Patient states she has not drank alcohol in nearly 18 years. She denies hematuria or dysuria. Patient states she was taking her diuretic at home but is unsure of the name. She denies vomiting. Blood pressure stable. There is also concern for altered mental status. She did undergo CT angiogram of the head and neck on July 18, 2023 which showed no acute changes. Brain CT noted to be negative. Kidney ultrasound showed atrophic left kidney with no evidence of hydronephrosis. Vital signs are stable. General: No acute distress. HEENT: Head exam is unremarkable. LUNGS: No audible rhonchi or wheezes. HEART: Rate and Rhythm are regular. ABDOMEN: Nontender. No distention. EXTREMITITES: No edema. Past Medical History Past Medical History: Atrial Fibrillation, Heart Failure, COPD, CVA/TIA, GERD/Reflux, Hypertension, Liver Disease, Memory Impairment, Osteoarthritis (OA), Renal Disease, Vascular Disorder Additional Past Medical History / Comment(s): CKD, cirrhosis of liver, pancreatitis, PEPTIC ULCERS, TIA/lesions on brain from spinal meningitis yrs ago(effects speech and balance), caratid artery disease, fluctuating blood pressure, enlarged heart/value issues, edema in joon legs, hx hiatal hernia, chronic venous insufficiency-"hard time healing" History of Any Multi-Drug Resistant Organisms: None Reported Date of last positivie culture/infection: 2011 MDRO Source:: stool Past Surgical History: Cholecystectomy, Joint Replacement Additional Past Surgical History / Comment(s): SURGERY ON SPLEEN, left hip replacement, JONA Past Anesthesia/Blood Transfusion Reactions: Previous Problems w/ Anesthesia Additional Past Anesthesia/Blood Transfusion Reaction / Comment(s): "trouble wa bi her up" per brother Past Psychological History: Anxiety, Depression Smoking Status: Current every day smoker Past Alcohol Use History: Unable to Obtain Past Drug Use History: Unable to Obtain - Past Family History Mother Family Medical History: Cancer Additional Family Medical History / Comment(s): Breast cancer/lung cancer, enlarged heart. Father Family Medical History: Cancer, Deep Vein Thrombosis (DVT) Medications and Allergies Home Medications Medication Instructions Recorded Confirmed Type Aspirin EC [Ecotrin Low Dose] 81 mg PO DAILY 02/08/19 07/18/23 History Cholecalciferol [Vitamin D3 (25 25 mcg PO DAILY 01/16/23 07/18/23 History Mcg = 1000 Iu)] Bumetanide [BUMEX] 2 mg PO DAILY 07/10/23 07/18/23 History Ferrous Sulfate [Iron (65 MG 325 mg PO DAILY 07/10/23 07/18/23 History Elemental)] Lactulose [Cephulac] 30 gm PO TID 07/10/23 07/18/23 History Melatonin 5 mg PO HS 07/10/23 07/18/23 History Omeprazole 20 mg PO DAILY 07/10/23 07/18/23 History Rifaximin [Xifaxan] 550 mg PO BID 07/10/23 07/18/23 History Vitamin E (Dl,Tocopheryl Acet) 400 unit PO DAILY 07/10/23 07/18/23 History [Vitamin E (400 Iu = 180 mg)] traZODone HCL [Desyrel] 50 mg PO HS 07/10/23 07/18/23 History FLUoxetine HCL 40 mg PO DAILY 07/15/23 07/18/23 History Allergies Allergy/AdvReac Type Severity Reaction Status Date / Time No Known Allergies Allergy Verified 07/18/23 17:03 Physical Exam Vitals: Vital Signs Temp Pulse Resp BP Pulse Ox 07/19/23 08:46 68 12 143/75 96 07/19/23 07:36 97.0 F L 99 18 137/58 99 07/19/23 06:00 58 L 18 130/56 96 07/19/23 04:00 61 18 136/61 96 07/19/23 02:00 63 18 142/73 97 07/19/23 00:00 61 18 156/92 96 07/18/23 22:00 60 18 125/72 95 07/18/23 20:00 60 18 146/66 98 07/18/23 17:00 78 18 149/59 98 07/18/23 16:00 60 18 158/72 98 07/18/23 15:45 64 18 158/72 99 07/18/23 15:43 63 18 158/72 99 07/18/23 15:36 97.1 F L 68 18 158/72 98 Intake and Output 07/18/23 07/19/23 07/19/23 22:59 06:59 14:59 Output Total 1325 Balance -1325 Output: Urine 1325 Uretheral (Gonsalez) 1325 Other: Weight 74.843 kg Results - Lab Results Most recent lab results Calcium 8.7 mg/dL (8.4-10.2) 07/19/23 07:40 Magnesium 2.3 mg/dL (1.6-2.3) 07/19/23 07:40 07/19/23 07:40 07/19/23 07:40 Assessment and Plan Plan: Assessment: 1. Acute kidney injury secondary to ATN. Creatinine 2.47 on admission and is 2.4 today. UA benign. No hydronephrosis noted on kidney ultrasound. Left kidney atrophic. 2. Chronic kidney disease stage IIIb with baseline creatinine in the range of 1.5-2 secondary to hepatorenal syndrome. 3. Alcohol induced liver cirrhosis. 4. Hypernatremia from lack of oral water intake. 5. Hypokalemia from poor intake and diuretic use. 6. Metabolic acidosis secondary to acute kidney injury and GI losses. 7. Anemia of chronic kidney disease. Plan: Change IV fluids from normal saline to D5W at 75 cc an hour. Replace potassium. Avoid nephrotoxins. Continue to hold diuretics for now. Check iron studies. Thank you for the consultation. I will continue to follow the patient with you during her hospital stay.
--- NOTE | 2023-07-19 12:53 | P.PN ---
Subjective Progress Note Date: 07/19/23 History of Presenting Illness: Patient is a pleasant 68-year-old female with a past medical history of alcoholic liver cirrhosis, stage IIIB chronic kidney disease, hypertension, anxiety and depression, PVD and COPD with continued nicotine dependence. She presented to the emergency department secondary to concerns of altered mental status and generalized weakness believed to be secondary to elevated ammonia levels. Patient's brother at bedside reports patient was her baseline normal and went for cardiac cath on Friday with Dr. De La Torre. He reports over the last few days that she has not been taking her lactulose as she is supposed to and woke up to be very confused. He reports she was just started on Bumex 2 mg daily a few weeks ago and other than that there have been no other medication changes. She was evaluated in the emergency department. Vital signs upon arrival show blood pressure 158/72, heart rate 68, respiratory rate 18, temp 97.1 F, and SpO2 of 98% on room air. EKG completed showing sinus rhythm with occasional PACs at [address] brain negative for acute hemorrhage or mass effect showing degenerative and remote ischemic changes. CTA head and neck was negative for acute intracranial process and no evidence of carotid stenosis and no evidence of dissection of the cervical internal carotid or vertebral arteries. Chest x- ray showing COPD with interstitial markings consistent with chronic interstitial lung disease, and small right pleural effusion. Labs were completed and reviewed. CBC showing macrocytic anemia with hemoglobin of 9.5 and MCH are 101.5. Coagulation profile showing slightly elevated INR of 1.2. BMP showing mild hyponatremia with sodium of 147, hypokalemia with potassium of 3.3, me tabolic acidosis with hyperchloremia with chloride of 117, hypercarbia with bicarb of 21, and anion gap of 9 as well as acute kidney injury on stage IIIb chronic kidney disease with BUN of 30, creatinine of 2.47, and GFR of 20. Blood glucose was normal findings at 107. Liver profile showing elevated alkaline phosphatase of 140. Ammonia levels elevated at 71. Creatinine continues normal findings at 66. Troponin elevated at 0.055. Serum alcohol level was less than 10. Patient was admitted under our services with consultation to nephrology. Physical exam: Patient seen and fully evaluated at bedside this morning. Patient is alert and oriented to person and place but still unable to state year and remains a little bit confused to situation leading up to hospitalization. She currently denies having any complaints. Reports having diarrhea overnight, this was explained to the patient that we resumed her lactulose use. Gonsalez catheter remains in place, will likely remove tomorrow pending improvement of mentation and reattempt voiding trial. Vital signs reviewed and stable. General: Nontoxic, no distress and appears stated age. Chronically ill- appearing. Derm: Skin warm and dry, jaundiced Head: Atraumatic, normocephalic and symmetric. Eyes: EOMs intact, no lid lag, and anicteric sclera Mouth: no lip lesions, mucus membranes moist Cardiovascular: regular rate and rhythm with normal S1S2, systolic murmur, positive posterior tibial pulses bilaterally, and cap refill < 2 seconds. Lungs: Respirations even, regular, and unlabored on room air. Lungs CTA bilaterally, no rhonchi, no rales, no wheezing, and no accessory muscle usage. Abdominal: soft, nontender to palpation, no guarding, no appreciable organomegaly Ext: No gross muscle atrophy, no edema, no contractures. Movement and sensation intact in bilateral upper and lower extremities. Venous stasis discoloration bilateral lower extremities. Neuro: Speech clear, face symmetrical and CN II-XII grossly intact with no noted focal neuro deficits Psych: Alert and oriented to person and place and pleasantly confused to time, and situation. Appropriate and pleasant affect. GCS 14. Assessment and Plan of Care: Hepatic encephalopathy Acute kidney injury on stage IIIb chronic kidney disease with urinary retention Elevated troponins. Likely secondary to elevated renal function, troponins flat and patient asymptomatic of cardiac complaints. Non anion gap metabolic acidosis Macrocytic anemia, acute on chronic Alcoholic liver cirrhosis Elevated liver enzymes secondary to alcoholic liver cirrhosis Hypernatremia Elevated INR secondary to alcoholic liver cirrhosis -Continue lactulose to 30 g 4 times daily and rifaximin 550 mg twice daily. -Continue neurochecks every 4 hours and fall precautions. -Telemetry monitoring. -Continue Gonsalez catheter, once mentation fully improved will remove Gonsalez catheter and perform voiding challenge. -Consult placed to nephrology for acute kidney injury on stage IIIb chronic kidney disease. -Order placed for urinalysis and renal US -Nephrology following, discussed plan of care with Dr. Lee and fluids changed to D5W at 75 cc/h. Hypokalemia Potassium 3.3 and order was placed for K-Dur 40 mEq p.o. x 1 dose. We will continue to monitor with repeat morning labs and replace abnormal electrolyte values if indicated based upon these results. Anxiety and depression -Patient to continue daily medication regimen with Prozac 40 mg daily, COPD with continued nicotine dependence, not in acute exacerbation -Recommend smoking cessation. Continue nicotine patch daily 14 mg daily. -Continue DuoNebs 4 times daily as needed for shortness of breath and/or wheezin g. Data and imaging reviewed: -Labs completed and reviewed. CBC showing stable macrocytic anemia with hemoglobin of 9.5. BMP showing persistent hyponatremia with sodium of 147, potassium 3.3, chloride 120, bicarb of 20, and AG of 7 with renal function showing BUN of 29, creatinine 2.40, and GFR of 20. Liver profile showing elevated AST of 37 and alkaline phosphatase of 136. Troponins were trended overnight and remained flat at 0.055, 0.044, and 0.063. Urinalysis was negative for blood, protein, or infection. -Urinary output over the past 24 hours was 1325 cc. -Vital signs reviewed. Blood pressure 143/75, heart rate 68, respiratory rate 12, and SpO2 of 96% on room air. CODE STATUS: Full code DVT prophylaxis: SCDs and ERIC hose Anticipated discharge date: Clinical course to determine Anticipated discharge place: Home Patient was seen independently by Nurse Practitioner. This document was prepared using [employer] dictation software. Please allow for errors in fruit farmer while rare they do occur. Ronni Ansari NP rendered care for this patient independently, reviewed the findings and plan as documented in the note above. I did not physically speak with or examine the patient on this date. Objective - Vital Signs Vital signs: Vital Signs Temp 97.0 F L 07/19/23 07:36 Pulse 99 07/19/23 07:36 Resp 18 07/19/23 07:36 BP 137/58 07/19/23 07:36 Pulse Ox 99 07/19/23 07:36 FiO2 Intake & Output 07/18/23 07/19/23 07/19/23 18:59 06:59 18:59 Output Total 725 600 Balance -725 -600 Weight 74.843 kg Output: Urine 725 600 Uretheral (Gonsalez) 725 600 - Labs CBC & Chem 7: 07/19/23 07:40 07/19/23 07:40 Labs: Abnormal Lab Results - Last 24 Hours (Table) 07/18/23 07/18/23 07/18/23 Range/Units 15:41 15:47 15:47 RBC 3.17 L (3.80-5.40) m/uL Hgb 9.5 L (11.4-16.0) gm/dL Hct 32.2 L (34.0-46.0) % MCV 101.5 H (80.0-100.0) fL MCHC 29.6 L (31.0-37.0) g/dL RDW 17.6 H (11.5-15.5) % INR 1.2 H (<1.2) Sodium (137-145) mmol/L Potassium (3.5-5.1) mmol/L Chloride (98-107) mmol/L Carbon Dioxide (22-30) mmol/L BUN (7-17) mg/dL Creatinine (0.52-1.04) mg/dL Glucose (74-99) mg/dL POC Glucose (mg/dL) 111 H (70-110) mg/dL Alkaline Phosphatase (38-126) U/L Ammonia (<30) umol/L Troponin I (0.000-0.034) ng/mL Total Protein (6.3-8.2) g/dL Albumin (3.5-5.0) g/dL Ur Leukocyte Esterase (Negative) Urine Bacteria (None) /hpf Urine Mucus (None) /hpf 07/18/23 07/18/23 07/18/23 Range/Units 15:47 15:47 15:47 RBC (3.80-5.40) m/uL Hgb (11.4-16.0) gm/dL Hct (34.0-46.0) % MCV (80.0-100.0) fL MCHC (31.0-37.0) g/dL RDW (11.5-15.5) % INR (<1.2) Sodium 147 H (137-145) mmol/L Potassium 3.3 L (3.5-5.1) mmol/L Chloride 117 H (98-107) mmol/L Carbon Dioxide 21 L (22-30) mmol/L BUN 30 H (7-17) mg/dL Creatinine 2.47 H (0.52-1.04) mg/dL Glucose 107 H (74-99) mg/dL POC Glucose (mg/dL) (70-110) mg/dL Alkaline Phosphatase 140 H (38-126) U/L Ammonia 71 H (<30) umol/L Troponin I 0.055 H* (0.000-0.034) ng/mL Total Protein 5.7 L (6.3-8.2) g/dL Albumin 2.7 L (3.5-5.0) g/dL Ur Leukocyte Esterase (Negative) Urine Bacteria (None) /hpf Urine Mucus (None) /hpf 07/18/23 07/18/23 07/18/23 Range/Units 18:00 19:10 22:46 RBC (3.80-5.40) m/uL Hgb (11.4-16.0) gm/dL Hct (34.0-46.0) % MCV (80.0-100.0) fL MCHC (31.0-37.0) g/dL RDW (11.5-15.5) % INR (<1.2) Sodium (137-145) mmol/L Potassium (3.5-5.1) mmol/L Chloride (98-107) mmol/L Carbon Dioxide (22-30) mmol/L BUN (7-17) mg/dL Creatinine (0.52-1.04) mg/dL Glucose (74-99) mg/dL POC Glucose (mg/dL) (70-110) mg/dL Alkaline Phosphatase (38-126) U/L Ammonia (<30) umol/L Troponin I 0.044 H* 0.063 H* (0.000-0.034) ng/mL Total Protein (6.3-8.2) g/dL Albumin (3.5-5.0) g/dL Ur Leukocyte Esterase Moderate H (Negative) Urine Bacteria Occasional H (None) /hpf Urine Mucus Rare H (None) /hpf
[2023-07-19] MEDS: DEXTROSE 5% IN WATER 1,000 ML IV SCH (13:12)
[2023-07-19] MEDS: POTASSIUM CHLORIDE ER 20 MEQ TAB.ER PO STA (13:13)
[2023-07-19 23:10] LABS: % Iron Saturation 82.91 (12.00-45.00)
[2023-07-20 08:26] LABS: ALT 25 U/L (4-34); AST 41 U/L (14-36); African American GFR (CKD) 22 (>60 ml/min/1.73 sqM); Albumin 2.4 g/dL (3.5-5.0); Albumin/Globulin Ratio 0.8; Alkaline Phosphatase 124 U/L (38-126); Anion Gap 8 mmol/L; Blood Urea Nitrogen 25 mg/dL (7-17); Calcium 8.6 mg/dL (8.4-10.2); Carbon Dioxide 16 mmol/L (22-30); Chloride 118 mmol/L (98-107); Globulin 2.9 g/dL; Glucose 98 mg/dL (74-99); Magnesium 2.2 mg/dL (1.6-2.3); Non-African American GFR(CKD) 19 (>60 ml/min/1.73 sqM); Potassium 3.5 mmol/L (3.5-5.1); Sodium 142 mmol/L (137-145); Total Bilirubin 0.8 mg/dL (0.2-1.3); Total Protein 5.3 g/dL (6.3-8.2)
[2023-07-20 08:58] LABS: Anisocytosis Slight; HCT 29.9 % (34.0-46.0); Hypochromasia Marked; MCV 103.3 fL (80.0-100.0); Macrocytosis Moderate; Platelet Count 201 k/uL (150-450); RBC 2.89 m/uL (3.80-5.40); RDW 17.4 % (11.5-15.5)
[2023-07-20] MEDS: POTASSIUM CHLORIDE ER 20 MEQ TAB.ER PO STA (10:57)
--- NOTE | 2023-07-20 11:28 | P.PN ---
Subjective Patient is seen in follow-up for acute kidney injury on chronic kidney disease. Renal function stable. On D5W. Sodium level 142. Has Gonsalez catheter for urinary retention. Nonoliguric. Vital signs are stable. General: No acute distress. HEENT: Head exam is unremarkable. LUNGS: No audible rhonchi or wheezes. HEART: Rate and Rhythm are regular. ABDOMEN: Soft, nontender. EXTREMITITES: 1+ edema. Objective - Vital Signs Vital signs: Vital Signs Temp 98.4 F 07/20/23 08:11 Pulse 69 07/20/23 08:11 Resp 20 07/20/23 08:11 BP 163/71 07/20/23 08:11 Pulse Ox 97 07/20/23 08:11 FiO2 Intake & Output 07/19/23 07/20/23 07/20/23 18:59 06:59 18:59 Output Total 350 Balance -350 Weight 74.843 kg Output: Urine 350 Other: Voiding Method Indwelling Catheter Indwelling Catheter Indwelling Catheter # Voids 2 # Bowel Movements 1 5 - Labs CBC & Chem 7: 07/20/23 07:32 07/20/23 07:32 Labs: Abnormal Lab Results - Last 24 Hours (Table) 07/19/23 07/20/23 07/20/23 Range/Units 07:40 07:32 07:32 RBC 2.89 L (3.80-5.40) m/uL Hgb 9.0 L (11.4-16.0) gm/dL Hct 29.9 L (34.0-46.0) % MCV 103.3 H (80.0-100.0) fL MCHC 30.0 L (31.0-37.0) g/dL RDW 17.4 H (11.5-15.5) % Chloride 118 H (98-107) mmol/L Carbon Dioxide 16 L (22-30) mmol/L BUN 25 H (7-17) mg/dL Creatinine 2.50 H (0.52-1.04) mg/dL TIBC 117 L (228-460) UG/DL % Saturation 82.91 H (12.00-45.00) Transferrin 83.3 L (204.0-354.0) mg/dL Ferritin 819.0 H (10.0-291.0) ng/mL AST 41 H (14-36) U/L Total Protein 5.3 L (6.3-8.2) g/dL Albumin 2.4 L (3.5-5.0) g/dL Assessment and Plan Plan: Assessment: 1. Acute kidney injury secondary to ATN. Creatinine 2.47 on admission and is stable at 2.5 today. UA benign. No hydronephrosis noted on kidney ultrasound. Left kidney atrophic. 2. Chronic kidney disease stage IIIb with baseline creatinine in the range of 1.5-2 secondary to hepatorenal syndrome. 3. Alcohol induced liver cirrhosis. 4. Hypernatremia from lack of oral water intake. Improved with D5W. 5. Hypokalemia from poor intake and diuretic use. Replaced. Better. 6. Metabolic acidosis secondary to acute kidney injury and GI losses. Also component of respiratory compensation. 7. Anemia of chronic kidney disease. Iron replete. Plan: Hep-Lock IV fluids. Maintain low-salt diet. 1500 cc fluid restriction. Add Aranesp. Avoid nephrotoxins. Add spironolactone 25 mg twice daily. Add Bumex 1 mg once daily. Continue to monitor renal function and urine output. 2 amp sodium bicarb IV push.
[2023-07-20] MEDS: ORPHENADRINE 30 MG/ML 2 ML VIAL IVP STA (12:03)
[2023-07-20] MEDS: SPIRONOLACTONE 25 MG TAB PO SCH (12:06)
[2023-07-20] MEDS: HYDROcodone/APAP 5-325MG 1 EACH TAB PO STA (12:06)
[2023-07-20] MEDS: BUMETANIDE 1 MG TAB PO SCH (12:06)
[2023-07-20] MEDS: SODIUM BICARB 8.4% 50 ML SYR (1 MEQ/ML) IV STA (12:07)
[2023-07-20] MEDS: DARBEPOETIN ALFA 40 MCG/0.4 ML SYRINGE SQ SCH (13:15)
--- NOTE | 2023-07-20 14:38 | P.PN ---
Subjective Progress Note Date: 07/20/23 Hospital Course: Patient is a pleasant 68-year-old female with a past medical history of alcoholic liver cirrhosis, stage IIIB chronic kidney disease, hypertension, anxiety and depression, PVD and COPD with continued nicotine dependence. She presented to the emergency department secondary to concerns of altered mental status and generalized weakness believed to be secondary to elevated ammonia levels. Patient's brother at bedside reports patient was her baseline normal and went for cardiac cath on Friday with Dr. De La Torre. He reports over the last few days that she has not been taking her lactulose as she is supposed to and woke up to be very confused. He reports she was just started on Bumex 2 mg daily a few weeks ago and other than that there have been no other medication changes. She was evaluated in the emergency department. Vital signs upon arrival show blood pressure 158/72, heart rate 68, respiratory rate 18, temp 97.1 F, and SpO2 of 98% on room air. EKG completed showing sinus rhythm with occasional PACs at [address] brain negative for acute hemorrhage or mass effect showing degenerative and remote ischemic changes. CTA head and neck was negative for acute intracranial process and no evidence of carotid stenosis and no evidence of dissection of the cervical internal carotid or vertebral arteries. Chest x- ray showing COPD with interstitial markings consistent with chronic interstitial lung disease, and small right pleural effusion. Labs were completed and reviewed. CBC showing macrocytic anemia with hemoglobin of 9.5 and MCH are 101.5. Coagulation profile showing slightly elevated INR of 1.2. BMP showing mild hyponatremia with sodium of 147, hypokalemia with potassium of 3.3, metabolic acidosis with hyperchloremia with chloride of 117, hypercarbia with bicarb of 21, and anion gap of 9 as well as acute kidney injury on stage IIIb chronic kidney disease with BUN of 30, creatinine of 2.47, and GFR of 20. Blood glucose was normal findings at 107. Liver profile showing elevated alkaline ph osphatase of 140. Ammonia levels elevated at 71. Creatinine continues normal findings at 66. Troponin elevated at 0.055. Serum alcohol level was less than 10. Patient was admitted under our services with consultation to nephrology. Physical exam: Patient seen and fully evaluated at bedside this morning. Mentation is back to baseline. She is alert and oriented to person place and time this morning. She currently reports having some muscle cramps in her bilateral lower extremities and has developed some lower extremity edema. Patient has a chronic ulcer/wound to left lower extremity that has opened and seeping clear serous fluid. Vital signs reviewed and stable. General: Nontoxic, no distress and appears stated age. Chronically ill- appearing. Derm: Skin warm and dry, jaundiced Head: Atraumatic, normocephalic and symmetric. Eyes: EOMs intact, no lid lag, and anicteric sclera Mouth: no lip lesions, mucus membranes moist Cardiovascular: regular rate and rhythm with normal S1S2, systolic murmur, positive posterior tibial pulses bilaterally, and cap refill < 2 seconds. Lungs: Respirations even, regular, and unlabored on room air. Lungs CTA bilaterally, no rhonchi, no rales, no wheezing, and no accessory muscle usage. Abdominal: soft, nontender to palpation, no guarding, no appreciable or ganomegaly Ext: No gross muscle atrophy. Movement and sensation intact in bilateral upper and lower extremities. Venous stasis discoloration bilateral lower extremities. BLE tight and edemedous with opening of chronic ulcer on LLE Neuro: Speech clear, face symmetrical and CN II-XII grossly intact with no noted focal neuro deficits Psych: Alert and oriented to person, place, time, and situation. Appropriate and pleasant affect. GCS 15. Assessment and Plan of Care: Acute kidney injury on stage IIIb chronic kidney disease with urinary retention Elevated troponins. Likely secondary to elevated renal function, troponins flat and patient asymptomatic of cardiac complaints. Non anion gap metabolic acidosis Hepatic encephalopathy, resolved Macrocytic anemia, acute on chronic Alcoholic liver cirrhosis Elevated liver enzymes secondary to alcoholic liver cirrhosis Hypernatremia, resolved Elevated INR secondary to alcoholic liver cirrhosis -Continue lactulose to 30 g 4 times daily and rifaximin 550 mg twice daily. -Hyperammonemia resolved with morning ammonia level for creatinine. Mentation has improved and back to baseline, neurochecks changed to every 8 hours. -Hypernatremia resolved with morning sodium 142. -Continue fall precautions. -Telemetry monitoring. -Orders placed to discontinue Gonsalez catheter and perform voiding challenge now that mentation has improved. -Nephrology following, discussed plan of care with Dr. Lee, D5W infusion was discontinued and patient started on Aldactone 25 mg twice daily in addition to Bumex 1 mg daily. -Renal ultrasound reporting no significant abnormality noted. Urinalysis was negative for blood, protein, ketones, or infection. -Nephrology following, discussed plan of care with Dr. Lee and fluids changed to D5W at 75 cc/h. Acute on chronic ulcer left lower extremity -Patient edematous this morning and has new opening on chronic left lower extremity ulcer, seeping clear fluids. No obvious signs of infection noted. -Instructed staff and use of Medihoney while awaiting wound care evaluation and further recommendations. -Consult placed to wound care, appreciate recommendations. Hypokalemia, resolved. Potassium 3.5. We will continue to monitor with repeat morning labs and replace abnormal electrolyte values if indicated based upon these results. Anxiety and depression, Patient to continue daily medication regimen with Prozac 40 mg daily, COPD with continued nicotine dependence, not in acute exacerbation -Recommend smoking cessation. Continue nicotine patch daily 14 mg daily. -Continue DuoNebs 4 times daily as needed for shortness of breath and/or wheezing. Data and imaging reviewed: -Labs completed and reviewed. CBC showing stable macrocytic anemia with hemoglobin of 9.0. BMP showing resolution of hyponatremia with sodium of 142, potassium normal findings at 3.5, chloride 118, bicarb of 16, and Anion Gap of 8 with renal function showing BUN of 25, creatinine 2.50, and GFR of 19. Liver profile showing elevated AST of 41 otherwise normal findings. -Vital signs reviewed. Blood pressure 163/71, heart rate 69, respiratory rate 20, temp 98.4 F, and SpO2 of 97% on room air. CODE STATUS: Full code DVT prophylaxis: SCDs and ERIC hose Anticipated discharge date: Clinical course to determine Anticipated discharge place: Home Patient was seen independently by Nurse Practitioner. This document was prepared using [employer] dictation software. Please allow for errors in cut off saw operator metal while rare they do occur. Ronni Ansari NP rendered care for this patient independently, reviewed the findings and plan as documented in the note above. I did not physically speak with or examine the patient on this date. Objective - Vital Signs Vital signs: Vital Signs Temp 98.4 F 07/20/23 02:00 Pulse 72 07/20/23 02:00 Resp 18 07/20/23 02:00 BP 159/78 07/20/23 02:00 Pulse Ox 96 07/20/23 02:00 FiO2 Intake & Output 07/19/23 07/20/23 07/20/23 18:59 06:59 18:59 Output Total 350 Balance -350 Weight 74.843 kg Output: Urine 350 Other: Voiding Method Indwelling Catheter Indwelling Catheter # Voids 2 # Bowel Movements 1 5 - Labs CBC & Chem 7: 07/20/23 07:32 07/20/23 07:32 Labs: Abnormal Lab Results - Last 24 Hours (Table) 07/19/23 07/19/23 07/19/23 Range/Units 07:40 07:40 07:40 RBC 3.11 L (3.80-5.40) m/uL Hgb 9.5 L (11.4-16.0) gm/dL Hct 31.9 L (34.0-46.0) % MCV 102.7 H (80.0-100.0) fL MCHC 29.9 L (31.0-37.0) g/dL RDW 17.6 H (11.5-15.5) % Sodium 147 H (137-145) mmol/L Potassium 3.3 L (3.5-5.1) mmol/L Chloride 120 H (98-107) mmol/L Carbon Dioxide 20 L (22-30) mmol/L BUN 29 H (7-17) mg/dL Creatinine 2.40 H (0.52-1.04) mg/dL TIBC 117 L (228-460) UG/DL % Saturation 82.91 H (12.00-45.00) Transferrin 83.3 L (204.0-354.0) mg/dL Ferritin 819.0 H (10.0-291.0) ng/mL AST 37 H (14-36) U/L Alkaline Phosphatase 136 H (38-126) U/L Total Protein 5.6 L (6.3-8.2) g/dL Albumin 2.6 L (3.5-5.0) g/dL 07/20/23 Range/Units 07:32 RBC (3.80-5.40) m/uL Hgb (11.4-16.0) gm/dL Hct (34.0-46.0) % MCV (80.0-100.0) fL MCHC (31.0-37.0) g/dL RDW (11.5-15.5) % Sodium (137-145) mmol/L Potassium (3.5-5.1) mmol/L Chloride 118 H (98-107) mmol/L Carbon Dioxide 16 L (22-30) mmol/L BUN 25 H (7-17) mg/dL Creatinine 2.50 H (0.52-1.04) mg/dL TIBC (228-460) UG/DL % Saturation (12.00-45.00) Transferrin (204.0-354.0) mg/dL Ferritin (10.0-291.0) ng/mL AST 41 H (14-36) U/L Alkaline Phosphatase (38-126) U/L Total Protein 5.3 L (6.3-8.2) g/dL Albumin 2.4 L (3.5-5.0) g/dL
--- NOTE | 2023-07-21 11:23 | P.PN ---
Subjective Patient is seen in follow-up for acute kidney injury on chronic kidney disease. Renal function stable as of yesterday. Off IV fluids. Now on Aldactone and Bumex. Has been voiding. Vital signs are stable. General: No acute distress. HEENT: Head exam is unremarkable. LUNGS: No audible rhonchi or wheezes. HEART: Rate and Rhythm are regular. ABDOMEN: Soft, nontender. EXTREMITITES: 1+ edema. Objective - Vital Signs Vital signs: Vital Signs Temp 98.3 F 07/21/23 07:06 Pulse 65 07/21/23 07:06 Resp 16 07/21/23 07:06 BP 153/66 07/21/23 07:06 Pulse Ox 96 07/21/23 07:06 FiO2 Intake & Output 07/20/23 07/21/23 07/21/23 18:59 06:59 18:59 Intake Total 300 358 Output Total 600 Balance -300 358 Intake: Intake, IV Titration 300 Amount Dextrose 5% in Water 1, 300 000 ml @ 75 mls/hr IV . [id number] [facility] Rx#:[id number] Oral 358 Output: Urine 600 Other: Voiding Method Indwelling Catheter Bedside Commode Bedside Commode # Voids 1 1 # Bowel Movements 1 1 - Labs CBC & Chem 7: 07/20/23 07:32 07/20/23 07:32 Assessment and Plan Plan: Assessment: 1. Acute kidney injury secondary to ATN. Creatinine 2.47 on admission and is stable at 2.5 yesterday. UA benign. No hydronephrosis noted on kidney ultrasound. Left kidney atrophic. 2. Chronic kidney disease stage IIIb with baseline creatinine in the range of 1.5-2 secondary to hepatorenal syndrome. 3. Alcohol induced liver cirrhosis. 4. Hypernatremia from lack of oral water intake. Status post D5W. Improved. 5. Hypokalemia from poor intake and diuretic use. Replaced. Better. 6. Metabolic acidosis secondary to acute kidney injury and GI losses. Also component of respiratory compensation. 7. Anemia of chronic kidney disease. Iron replete. On Aranesp. Plan: Maintain low-salt diet. 1500 cc fluid restriction. Avoid nephrotoxins. Maintain maintain spironolactone 25 mg twice daily. Maintain Bumex 1 mg once daily. Continue to monitor renal function and urine output. Morning labs pending.
[2023-07-21 11:24] LABS: HGB 8.5 g/dL (12.0-15.0); MCH 30.7 pg (27.0-32.0); MCV 90.3 FL (80.0-97.0); Mean Platelet Volume 12.9 FL (9.5-12.2); NRBC Per 100 WBC 0.02 X 10*3/uL (0.00-0.01); Platelet Count 202 X 10*3/uL (140-440); RBC 2.77 X 10*6/uL (4.10-5.20); RDW 19.4 % (11.5-14.5)
[2023-07-21 11:56] LABS: ALT 27 U/L (8-44); AST 35 U/L (13-35); Albumin 2.7 g/dL (3.8-4.9); Albumin/Globulin Ratio 1.23 Ratio (1.60-3.17); Alkaline Phosphatase 103 U/L (41-126); BUN/Creat Ratio 9.35 Ratio (12.00-20.00); Blood Urea Nitrogen 21.5 mg/dL (9.0-27.0); Calcium 8.5 mg/dL (8.7-10.3); Carbon Dioxide 21.5 mmol/L (21.6-31.8); Chloride 117 mmol/L (96-109); Globulin 2.2 g/dL (1.6-3.3); Glucose 92 mg/dL (70-110); Potassium 3.3 mmol/L (3.5-5.5); Sodium 147 mmol/L (135-145); Total Bilirubin 0.6 mg/dL (0.3-1.2); Total Protein 4.9 g/dL (6.2-8.2)
--- NOTE | 2023-07-21 12:13 | P.CONS ---
History of Present Illness - Reason for Consult Consult date: 07/21/23 wound care - History of Present Illness This is a 68-year-old patient being seen on [address]. with past medical history significant for atrial fibrillation, CHF, COPD, CVA, GERD, hypertension, liver disease, renal disease peripheral vascular disease. Patient is being seen for nonhealing ulceration to the left medial calf. Patient states that the ulceration comes and goes since 1996. Patient states that recently she has she developed edema to her lower extremities resulting in a reopening of the ulceration. Patient is known to the wound care center for nonhealing ulceration to the chest that is resolved. Left medial ulceration measures approximately 2.5 x 1.6 x 0.2 cm with fat layer exposed. Ulceration has significant amount of eschar slough and nonviable tissue present. Minimal to no granulation noted. No tunneling or undermining noted. Patient has 1+ pitting edema to bilateral lower extremities. Review Of Systems: Constitutional: No fever, no chills, no night sweats. No weight change. No weakness, fatigue or lethargy. No daytime sleepiness. Integumentary:reports wounds, no lesions. No rash or pruritus. No unusual bruising. No change in hair or nails. Physical exam: General Appearance: Alert, cooperative, no distress, appears stated age. Skin: See HPI all other Skin color, texture, tugor normal, no rashes or lesions. Neurologic: Alert oriented x3 Assessment: 1. Nonhealing ulceration left lower extremity with fat layer exposure 2. Arthrosclerosis with ulceration to the left calf Plan: 1.Left medial calf: Apply honey gel, dry gauze, rolled gauze secure with paper tape wrap with Taiwo wrap for compression. Patient would benefit from advanced wound care and wound care setting. We have happy to see her upon discharge. Thank you for the consultation any questions please contact the wound care center DNP note has been reviewed and discussed with Dr. Kaufman and the impression and plan of care has been directed as dictated. Past Medical History Past Medical History: Atrial Fibrillation, Heart Failure, COPD, CVA/TIA, GERD/Reflux, Hypertension, Liver Disease, Memory Impairment, Osteoarthritis (OA), Renal Disease, Vascular Disorder Additional Past Medical History / Comment(s): CKD, cirrhosis of liver, pancreati tis, PEPTIC ULCERS, TIA/lesions on brain from spinal meningitis yrs ago(effects speech and balance), caratid artery disease, fluctuating blood pressure, enlarged heart/value issues, edema in joon legs, hx hiatal hernia, chronic venous insufficiency-"hard time healing" History of Any Multi-Drug Resistant Organisms: None Reported Year Discovered:: 2011 MDRO Source:: stool Past Surgical History: Cholecystectomy, Heart Catheterization, Joint Replacement Additional Past Surgical History / Comment(s): SURGERY ON SPLEEN, left hip replacement, JONA Past Anesthesia/Blood Transfusion Reactions: Previous Problems w/ Anesthesia Additional Past Anesthesia/Blood Transfusion Reaction / Comm: "trouble waking her up" per brother Past Psychological History: Anxiety, Depression Additional Psychological History / Comment(s): Some loss of memory. Pt resides alone and has son and chinedu-in-law live next door. Pt uses walker, cane. Smoking Status: Current every day smoker Past Alcohol Use History: Unable to Obtain Additional Past Alcohol Use History / Comment(s): smokes 1 PPD since age 14, past ETOH Past Drug Use History: Unable to Obtain Additional Drug Use History / Comment(s): . - Past Family History Mother Family Medical History: Cancer Additional Family Medical History / Comment(s): Breast cancer/lung cancer, enlarged heart. Father Family Medical History: Cancer, Deep Vein Thrombosis (DVT) Medications and Allergies Home Medications Medication Instructions Recorded Confirmed Type Aspirin EC [Ecotrin Low Dose] 81 mg PO DAILY 02/08/19 07/18/23 History Cholecalciferol [Vitamin D3 (25 25 mcg PO DAILY 01/16/23 07/18/23 History Mcg = 1000 Iu)] Bumetanide [BUMEX] 2 mg PO DAILY 07/10/23 07/18/23 History Ferrous Sulfate [Iron (65 MG 325 mg PO DAILY 07/10/23 07/18/23 History Elemental)] Lactulose [Cephulac] 30 gm PO TID 07/10/23 07/18/23 History Melatonin 5 mg PO HS 07/10/23 07/18/23 History Omeprazole 20 mg PO DAILY 07/10/23 07/18/23 History Rifaximin [Xifaxan] 550 mg PO BID 07/10/23 07/18/23 History Vitamin E (Dl,Tocopheryl Acet) 400 unit PO DAILY 07/10/23 07/18/23 History [Vitamin E (400 Iu = 180 mg)] traZODone HCL [Desyrel] 50 mg PO HS 07/10/23 07/18/23 History FLUoxetine HCL 40 mg PO DAILY 07/15/23 07/18/23 History Allergies Allergy/AdvReac Type Severity Reaction Status Date / Time No Known Allergies Allergy Verified 07/18/23 17:03 Physical Exam Vitals: Vital Signs Temp Pulse Resp BP Pulse Ox 07/21/23 12:01 98.1 F 63 16 154/66 99 07/21/23 07:06 98.3 F 65 16 153/66 96 07/21/23 01:51 98.1 F 63 16 151/63 97 07/20/23 19:36 97.8 F 55 L 16 164/75 99 07/20/23 13:04 98.4 F 62 20 164/73 95 Intake and Output 07/20/23 07/21/23 07/21/23 22:59 06:59 14:59 Intake Total 418 240 Balance 418 240 Intake: Intake, IV Titration 300 Amount Dextrose 5% in Water 1, 300 000 ml @ 75 mls/hr IV . [id number] [facility] Rx#:[id number] Oral 118 240 Other: Voiding Method Bedside Commode Bedside Commode # Voids 1 1 # Bowel Movements 1 Results CBC & Chem 7: 07/21/23 06:42 07/21/23 06:42 Labs: Abnormal Lab Results - Last 24 Hours (Table) 07/21/23 07/21/23 Range/Units 06:42 06:42 RBC 2.77 L (4.10-5.20) X 10*6/uL Hgb 8.5 L (12.0-15.0) g/dL Hct 25.0 L (37.2-46.3) % RDW 19.4 H (11.5-14.5) % MPV 12.9 H (9.5-12.2) FL NRBC/100 WBC Diff 0.02 H (0.00-0.01) X 10*3/uL Sodium 147 H (135-145) mmol/L Potassium 3.3 L (3.5-5.5) mmol/L Chloride 117 H (96-109) mmol/L Carbon Dioxide 21.5 L (21.6-31.8) mmol/L Creatinine 2.3 H (0.6-1.5) mg/dL Est GFR (CKD-EPI) 23 L (>=60) BUN/Creatinine Ratio 9.35 L (12.00-20.00) Ratio Calcium 8.5 L (8.7-10.3) mg/dL Total Protein 4.9 L (6.2-8.2) g/dL Albumin 2.7 L (3.8-4.9) g/dL Albumin/Globulin Ratio 1.23 L (1.60-3.17) Ratio Assessment and Plan (1) Non-pressure chronic ulcer of left lower leg with fat layer exposed Current Visit: Yes Status: Acute Code(s): L97.922 - NON-PRS CHR ULC UNSP PRT OF L LOW LEG W FAT LAYER EXPOSED SNOMED Code(s): 95295865353152523 (2) Atherosclerosis of [place] artery of left leg with ulceration of ankle Current Visit: Yes Status: Acute Code(s): I70.243 - ATHSCL [place] ARTERIES OF LEFT LEG W ULCERATION OF ANKLE SNOMED Code(s): 9268550666 (3) Chronic venous hypertension (idiopathic) with ulcer of left lower extremity Current Visit: Yes Status: Acute Code(s): I87.312 - CHRONIC VENOUS HYPERTENSION W ULCER OF L LOW EXTREM; L97.929 - NON-PRS CHRONIC ULC UNSP PRT OF L LOW LEG W UNSP SEVERITY SNOMED Code(s): 033279017284871
[2023-07-21] MEDS: POTASSIUM CHLORIDE ER 20 MEQ TAB.ER PO STA (13:00)
[2023-07-21] MEDS: DEXTROSE 5% IN WATER 1,000 ML IV SCH (14:09)
--- NOTE | 2023-07-21 14:10 | P.PN ---
Subjective Progress Note Date: 07/21/23 Hospital Course: Patient is a pleasant 68-year-old female with a past medical history of alcoholic liver cirrhosis, stage IIIB chronic kidney disease, hypertension, anxiety and depression, PVD and COPD with continued nicotine dependence. She presented to the emergency department secondary to concerns of altered mental status and generalized weakness believed to be secondary to elevated ammonia levels. Patient's brother at bedside reports patient was her baseline normal and went for cardiac cath on Friday with Dr. De La Torre. He reports over the last few days that she has not been taking her lactulose as she is supposed to and woke up to be very confused. He reports she was just started on Bumex 2 mg daily a few weeks ago and other than that there have been no other medication changes. She was evaluated in the emergency department. Vital signs upon arrival show blood pressure 158/72, heart rate 68, respiratory rate 18, temp 97.1 F, and SpO2 of 98% on room air. EKG completed showing sinus rhythm with occasional PACs at [address] brain negative for acute hemorrhage or mass effect showing degenerative and remote ischemic changes. CTA head and neck was negative for acute intracranial process and no evidence of carotid stenosis and no evidence of dissection of the cervical internal carotid or vertebral arteries. Chest x- ray showing COPD with interstitial markings consistent with chronic interstitial lung disease, and small right pleural effusion. Labs were completed and reviewed. CBC showing macrocytic anemia with hemoglobin of 9.5 and MCH are 101.5. Coagulation profile showing slightly elevated INR of 1.2. BMP showing mild hyponatremia with sodium of 147, hypokalemia with potassium of 3.3, metabolic acidosis with hyperchloremia with chloride of 117, hypercarbia with bicarb of 21, and anion gap of 9 as well as acute kidney injury on stage IIIb chronic kidney disease with BUN of 30, creatinine of 2.47, and GFR of 20. Blood glucose was normal findings at 107. Liver profile showing elevated alkaline ph osphatase of 140. Ammonia levels elevated at 71. Creatinine continues normal findings at 66. Troponin elevated at 0.055. Serum alcohol level was less than 10. Patient was admitted under our services with consultation to nephrology. Physical exam: Patient seen and fully evaluated at bedside this morning. Mentation is back to baseline. She is alert and oriented to person place and time this morning. She currently reports having some muscle cramps in her bilateral lower extremities and has developed some lower extremity edema. Patient has a chronic ulcer/wound to left lower extremity that has opened and seeping clear serous fluid. Vital signs reviewed and stable. General: Nontoxic, no distress and appears stated age. Chronically ill- appearing. Derm: Skin warm and dry, jaundiced Head: Atraumatic, normocephalic and symmetric. Eyes: EOMs intact, no lid lag, and anicteric sclera Mouth: no lip lesions, mucus membranes moist Cardiovascular: regular rate and rhythm with normal S1S2, systolic murmur, positive posterior tibial pulses bilaterally, and cap refill < 2 seconds. Lungs: Respirations even, regular, and unlabored on room air. Lungs CTA bilaterally, no rhonchi, no rales, no wheezing, and no accessory muscle usage. Abdominal: soft, nontender to palpation, no guarding, no appreciable or ganomegaly Ext: No gross muscle atrophy. Movement and sensation intact in bilateral upper and lower extremities. Venous stasis discoloration bilateral lower extremities. BLE tight and edemedous with opening of chronic ulcer on LLE Neuro: Speech clear, face symmetrical and CN II-XII grossly intact with no noted focal neuro deficits Psych: Alert and oriented to person, place, time, and situation. Appropriate and pleasant affect. GCS 15. Assessment and Plan of Care: Acute kidney injury on stage IIIb chronic kidney disease with urinary retention Hypernatremia Elevated troponins. Likely secondary to elevated renal function, troponins flat and patient asymptomatic of cardiac complaints. Non anion gap metabolic acidosis Hepatic encephalopathy, resolved Macrocytic anemia, acute on chronic Alcoholic liver cirrhosis Elevated liver enzymes secondary to alcoholic liver cirrhosis Elevated INR secondary to alcoholic liver cirrhosis -Continue lactulose to 30 g 4 times daily and rifaximin 550 mg twice daily. -Hyperammonemia resolved with morning ammonia level 16. Mentation has improved and back to baseline, neurochecks to continue every 8 hours. -Hypernatremia with sodium 147, discussed with can machine operator stating he started patient back on D5 infusion and recommending patient to continue with diuretics including Bumex and Aldactone. -Continue fall precautions. -Telemetry monitoring. -Orders placed to discontinue Gonsalez catheter and perform voiding challenge now that mentation has improved. -Nephrology following, discussed plan of care with Dr. Lee, D5W infusion was discontinued and patient started on Aldactone 25 mg twice daily in addition to Bumex 1 mg daily. -Renal ultrasound reporting no significant abnormality noted. Urinalysis was negative for blood, protein, ketones, or infection. -Nephrology following, discussed plan of care with Dr. Lee and fluids changed to D5W at 75 cc/h. Acute on chronic ulcer left lower extremity -Patient edematous this morning and has new opening on chronic left lower extremity ulcer, seeping clear fluids. No obvious signs of infection noted. -Instructed staff and use of [employer] while awaiting wound care evaluation and further recommendations. -Consult placed to wound care, appreciate recommendations. Hypokalemia. Potassium 3.3. Order was placed for K-Dur 40 mEq p.o. x 1 dose. We will continue to monitor with repeat morning labs and replace abnormal electrolyte values if indicated based upon these results. Anxiety and depression, Patient to continue daily medication regimen with Prozac 40 mg daily, COPD with continued nicotine dependence, not in acute exacerbation -Recommend smoking cessation. Continue nicotine patch daily 14 mg daily. -Continue DuoNebs 4 times daily as needed for shortness of breath and/or wheezing. Data and imaging reviewed: -Labs completed and reviewed. CBC showing anemia with hemoglobin of 8.5 othe rwise stable. BMP revealing hyponatremia with sodium of 147, hypokalemia with potassium of 3.3 continued metabolic acidosis with chloride of 117 and bicarb of 21.5 with anion gap of 8.50 and slight improvement but continued elevation of renal function with BUN of 21.5, creatinine of 2.3, and GFR of 23. -Vital signs reviewed. Blood pressure 153/66, heart rate 65, respiratory rate 16, temp 98.3 F, and SpO2 of 96% on room air. CODE STATUS: Full code DVT prophylaxis: SCDs and ERIC hose Anticipated discharge date: Clinical course to determine Anticipated discharge place: Home Patient was seen independently by Nurse Practitioner. This document was prepared using [employer] dictation software. Please allow for errors in locomotive operator helper while rare they do occur. Ronni Ansari NP rendered care for this patient independently, reviewed the findings and plan as documented in the note above. I did not physically speak with or examine the patient on this date. Objective - Vital Signs Vital signs: Vital Signs Temp 98.3 F 07/21/23 07:06 Pulse 65 07/21/23 07:06 Resp 16 07/21/23 07:06 BP 153/66 07/21/23 07:06 Pulse Ox 96 07/21/23 07:06 FiO2 Intake & Output 07/20/23 07/21/23 07/21/23 18:59 06:59 18:59 Intake Total 300 358 Output Total 600 Balance -300 358 Intake: Intake, IV Titration 300 Amount Dextrose 5% in Water 1, 300 000 ml @ 75 mls/hr IV . [id number] [facility] Rx#:[id number] Oral 358 Output: Urine 600 Other: Voiding Method Indwelling Catheter Bedside Commode # Voids 1 1 # Bowel Movements 1 1 - Labs CBC & Chem 7: 07/22/23 05:56 07/22/23 05:56 Labs: Abnormal Lab Results - Last 24 Hours (Table) 07/20/23 07/20/23 Range/Units 07:32 07:32 RBC 2.89 L (3.80-5.40) m/uL Hgb 9.0 L (11.4-16.0) gm/dL Hct 29.9 L (34.0-46.0) % MCV 103.3 H (80.0-100.0) fL MCHC 30.0 L (31.0-37.0) g/dL RDW 17.4 H (11.5-15.5) % Chloride 118 H (98-107) mmol/L Carbon Dioxide 16 L (22-30) mmol/L BUN 25 H (7-17) mg/dL Creatinine 2.50 H (0.52-1.04) mg/dL AST 41 H (14-36) U/L Total Protein 5.3 L (6.3-8.2) g/dL Albumin 2.4 L (3.5-5.0) g/dL
[2023-07-21] MEDS: MELATONIN 5 MG TABLET PO PRN (20:20)
--- NOTE | 2023-07-22 10:39 | P.PN ---
Subjective Patient is seen in follow-up for acute kidney injury on chronic kidney disease. Renal function stable as of yesterday. Off IV fluids. Now on Aldactone and Bumex. Has been voiding. No vomiting or diarrhea. Also on D5W for hypernatremia. Vital signs are stable. General: No acute distress. HEENT: Head exam is unremarkable. LUNGS: No audible rhonchi or wheezes. HEART: Rate and Rhythm are regular. ABDOMEN: Soft, nontender. EXTREMITITES: Trace edema. Objective - Vital Signs Vital signs: Vital Signs Temp 98.1 F 07/22/23 08:15 Pulse 72 07/22/23 08:15 Resp 18 07/22/23 08:15 BP 146/55 07/22/23 08:15 Pulse Ox 97 07/22/23 08:15 FiO2 Intake & Output 07/21/23 07/22/23 07/22/23 18:59 06:59 18:59 Intake Total 560 1080 118 Output Total 1 1 Balance 560 1079 117 Intake: Intake, IV Titration 600 Amount Dextrose 5% in Water 1, 600 000 ml @ 50 mls/hr IV . Q20H [facility] Rx#:[id number] Oral 560 480 118 Output: Stool 1 1 Other: Voiding Method Bedside Commode Bedside Commode Bedside Commode # Voids 1 1 # Bowel Movements 1 1 - Labs CBC & Chem 7: 07/21/23 06:42 07/21/23 06:42 Labs: Abnormal Lab Results - Last 24 Hours (Table) 07/21/23 07/21/23 Range/Units 06:42 06:42 RBC 2.77 L (4.10-5.20) X 10*6/uL Hgb 8.5 L (12.0-15.0) g/dL Hct 25.0 L (37.2-46.3) % RDW 19.4 H (11.5-14.5) % MPV 12.9 H (9.5-12.2) FL NRBC/100 WBC Diff 0.02 H (0.00-0.01) X 10*3/uL Sodium 147 H (135-145) mmol/L Potassium 3.3 L (3.5-5.5) mmol/L Chloride 117 H (96-109) mmol/L Carbon Dioxide 21.5 L (21.6-31.8) mmol/L Creatinine 2.3 H (0.6-1.5) mg/dL Est GFR (CKD-EPI) 23 L (>=60) BUN/Creatinine Ratio 9.35 L (12.00-20.00) Ratio Calcium 8.5 L (8.7-10.3) mg/dL Total Protein 4.9 L (6.2-8.2) g/dL Albumin 2.7 L (3.8-4.9) g/dL Albumin/Globulin Ratio 1.23 L (1.60-3.17) Ratio Assessment and Plan Plan: Assessment: 1. Acute kidney injury secondary to ATN. Creatinine 2.47 on admission and is stable at 2.3 yesterday. UA benign. No hydronephrosis noted on kidney ultras ound. Left kidney atrophic. 2. Chronic kidney disease stage IIIb with baseline creatinine in the range of 1.5-2 secondary to hepatorenal syndrome. 3. Alcohol induced liver cirrhosis. 4. Hypernatremia from lack of oral water intake. On D5W. 5. Hypokalemia from poor intake and diuretic use. Replaced. 6. Metabolic acidosis secondary to acute kidney injury and GI losses. Also component of respiratory compensation. Better. 7. Anemia of chronic kidney disease. Iron replete. On Aranesp. Plan: Maintain low-salt diet. 1500 cc fluid restriction. Avoid nephrotoxins. Maintain maintain spironolactone 25 mg twice daily. Maintain Bumex 1 mg once daily. Continue to monitor renal function and urine output. Morning labs pending.
[2023-07-22 11:38] LABS: ALT 26 U/L (8-44); AST 38 U/L (13-35); Albumin 2.9 g/dL (3.8-4.9); Albumin/Globulin Ratio 1.26 Ratio (1.60-3.17); Alkaline Phosphatase 109 U/L (41-126); BUN/Creat Ratio 9.32 Ratio (12.00-20.00); Blood Urea Nitrogen 20.5 mg/dL (9.0-27.0); Calcium 8.7 mg/dL (8.7-10.3); Carbon Dioxide 22.2 mmol/L (21.6-31.8); Chloride 118 mmol/L (96-109); Globulin 2.3 g/dL (1.6-3.3); Glucose 95 mg/dL (70-110); Potassium 3.5 mmol/L (3.5-5.5); Sodium 148 mmol/L (135-145); Total Bilirubin 0.6 mg/dL (0.3-1.2); Total Protein 5.2 g/dL (6.2-8.2)
[2023-07-22 12:19] LABS: HCT 27.3 % (37.2-46.3); HGB 8.9 g/dL (12.0-15.0); MCH 30.8 pg (27.0-32.0); MCHC 32.6 g/dL (32.0-37.0); MCV 94.5 FL (80.0-97.0); Mean Platelet Volume 14.1 FL (9.5-12.2); NRBC Per 100 WBC 0.04 X 10*3/uL (0.00-0.01); Platelet Count 187 X 10*3/uL (140-440); RBC 2.89 X 10*6/uL (4.10-5.20); RDW 19.9 % (11.5-14.5); WBC 7.87 X 10*3/uL (4.50-10.00)
[2023-07-22] MEDS: POTASSIUM CHLORIDE ER 20 MEQ TAB.ER PO STA (12:26)
--- NOTE | 2023-07-22 17:17 | P.PN ---
Subjective Progress Note Date: 07/22/23 Hospital Course: Patient is a pleasant 68-year-old female with a past medical history of alcoholic liver cirrhosis, stage IIIB chronic kidney disease, hypertension, anxiety and depression, PVD and COPD with continued nicotine dependence. She presented to the emergency department secondary to concerns of altered mental status and generalized weakness believed to be secondary to elevated ammonia levels. Patient's brother at bedside reports patient was her baseline normal and went for cardiac cath on Friday with Dr. De La Torre. He reports over the last few days that she has not been taking her lactulose as she is supposed to and woke up to be very confused. He reports she was just started on Bumex 2 mg daily a few weeks ago and other than that there have been no other medication changes. She was evaluated in the emergency department. Vital signs upon arrival show blood pressure 158/72, heart rate 68, respiratory rate 18, temp 97.1 F, and SpO2 of 98% on room air. EKG completed showing sinus rhythm with occasional PACs at [address] brain negative for acute hemorrhage or mass effect showing degenerative and remote ischemic changes. CTA head and neck was negative for acute intracranial process and no evidence of carotid stenosis and no evidence of dissection of the cervical internal carotid or vertebral arteries. Chest x- ray showing COPD with interstitial markings consistent with chronic interstitial lung disease, and small right pleural effusion. Labs were completed and reviewed. CBC showing macrocytic anemia with hemoglobin of 9.5 and MCH are 101.5. Coagulation profile showing slightly elevated INR of 1.2. BMP showing mild hyponatremia with sodium of 147, hypokalemia with potassium of 3.3, metabolic acidosis with hyperchloremia with chloride of 117, hypercarbia with bicarb of 21, and anion gap of 9 as well as acute kidney injury on stage IIIb chronic kidney disease with BUN of 30, creatinine of 2.47, and GFR of 20. Blood glucose was normal findings at 107. Liver profile showing elevated alkaline ph osphatase of 140. Ammonia levels elevated at 71. Creatinine continues normal findings at 66. Troponin elevated at 0.055. Serum alcohol level was less than 10. Patient was admitted under our services with consultation to nephrology. Physical exam: Patient seen and fully evaluated at bedside this morning. Her mentation remains improved at baseline. She is visiting with her brother at bedside. Vital signs reviewed and stable. General: Nontoxic, no distress and appears stated age. Chronically ill- appearing. Derm: Skin warm and dry, jaundiced Head: Atraumatic, normocephalic and symmetric. Eyes: EOMs intact, no lid lag, and anicteric sclera Mouth: no lip lesions, mucus membranes moist Cardiovascular: regular rate and rhythm with normal S1S2, systolic murmur, positive posterior tibial pulses bilaterally, and cap refill < 2 seconds. Lungs: Respirations even, regular, and unlabored on room air. Lungs CTA bilaterally, no rhonchi, no rales, no wheezing, and no accessory muscle usage. Abdominal: soft, nontender to palpation, no guarding, no appreciable organomegaly Ext: No gross muscle atrophy. Movement and sensation intact in bilateral upper and lower extremities. Venous stasis discoloration bilateral lower extremities. BLE tight and edemedous with opening of chronic ulcer on LLE Neuro: Speech clear, face symmetrical and CN II-XII grossly intact with no noted focal neuro deficits Psych: Alert and oriented to person, place, time, and situation. Appropriate and pleasant affect. GCS 15. Assessment and Plan of Care: Acute kidney injury on stage IIIb chronic kidney disease with urinary retention Hypernatremia Elevated troponins. Likely secondary to elevated renal function, troponins flat and patient asymptomatic of cardiac complaints. Non anion gap metabolic acidosis Hepatic encephalopathy, resolved Macrocytic anemia, acute on chronic Alcoholic liver cirrhosis Elevated liver enzymes secondary to alcoholic liver cirrhosis Elevated INR secondary to alcoholic liver cirrhosis -Continue lactulose to 30 g 4 times daily and rifaximin 550 mg twice daily. -Hyperammonemia resolved with morning ammonia level 16. Mentation has improved and back to baseline, neurochecks to continue every 8 hours. -Hypernatremia with sodium 148, discussed with commodity loan clerk increasing D5W infusion to 75 cc/h and recommending patient to continue with diuretics including Bumex and Aldactone. -Continue fall precautions. -Telemetry monitoring. -Gonsalez catheter was discontinued and patient urinating without any difficulties with no reported retention. -Nephrology following, discussed plan of care with Dr. Lee, D5W infusion was discontinued and patient started on Aldactone 25 mg twice daily in addition to Bumex 1 mg daily. -Renal ultrasound reporting no significant abnormality noted. Urinalysis was negative for blood, protein, ketones, or infection. Acute on chronic ulcer left lower extremity -Patient edematous this morning and has new opening on chronic left lower extremity ulcer, seeping clear fluids. No obvious signs of infection noted. -Instructed staff on use of [employer] while awaiting wound care evaluation and further recommendations. -Consult placed to wound care, appreciate recommendations. Hypokalemia. Resolved. Morning potassium 3.5. We will continue to monitor with repeat morning labs and replace abnormal electrolyte values if indicated based upon these results. Anxiety and depression, Patient to continue daily medication regimen with Prozac 40 mg daily, COPD with continued nicotine dependence, not in acute exacerbation -Recommend smoking cessation. Continue nicotine patch daily 14 mg daily. -Continue DuoNebs 4 times daily as needed for shortness of breath and/or wheezing. Data and imaging reviewed: -Labs completed and reviewed. CBC showing anemia with hemoglobin of 8.9 otherwise stable. BMP revealing hyponatremia with sodium of 148, hyperchloremia with chloride of 118 and slight improvement but continued elevation of renal function with BUN of 20.5, creatinine of 2.2, and GFR of 24. -Vital signs reviewed. Blood pressure 134/63, heart rate 59, respiratory rate 16, temp 98.1 F, and SpO2 of 100% on room air. CODE STATUS: Full code DVT prophylaxis: SCDs and ERIC hose Anticipated discharge date: Clinical course to determine Anticipated discharge place: Home Patient was seen independently by Nurse Practitioner. This document was prepared using [employer] dictation software. Please allow for errors in percussion teacher while rare they do occur. Objective - Vital Signs Vital signs: Vital Signs Temp 98.1 F 07/22/23 00:51 Pulse 59 L 07/22/23 00:51 Resp 15 07/22/23 00:51 BP 142/67 07/22/23 00:51 Pulse Ox 96 07/22/23 00:51 FiO2 Intake & Output 07/21/23 07/22/23 07/22/23 18:59 06:59 18:59 Intake Total 560 1080 Output Total 1 Balance 560 1079 Intake: Intake, IV Titration 600 Amount Dextrose 5% in Water 1, 600 000 ml @ 50 mls/hr IV . Q20H [facility] Rx#:[id number] Oral 560 480 Output: Stool 1 Other: Voiding Method Bedside Commode Bedside Commode # Voids 1 # Bowel Movements 1 - Labs CBC & Chem 7: 07/22/23 05:56 07/22/23 05:56 Labs: Abnormal Lab Results - Last 24 Hours (Table) 07/21/23 07/21/23 Range/Units 06:42 06:42 RBC 2.77 L (4.10-5.20) X 10*6/uL Hgb 8.5 L (12.0-15.0) g/dL Hct 25.0 L (37.2-46.3) % RDW 19.4 H (11.5-14.5) % MPV 12.9 H (9.5-12.2) FL NRBC/100 WBC Diff 0.02 H (0.00-0.01) X 10*3/uL Sodium 147 H (135-145) mmol/L Potassium 3.3 L (3.5-5.5) mmol/L Chloride 117 H (96-109) mmol/L Carbon Dioxide 21.5 L (21.6-31.8) mmol/L Creatinine 2.3 H (0.6-1.5) mg/dL Est GFR (CKD-EPI) 23 L (>=60) BUN/Creatinine Ratio 9.35 L (12.00-20.00) Ratio Calcium 8.5 L (8.7-10.3) mg/dL Total Protein 4.9 L (6.2-8.2) g/dL Albumin 2.7 L (3.8-4.9) g/dL Albumin/Globulin Ratio 1.23 L (1.60-3.17) Ratio
[2023-07-23 08:29] LABS: HCT 26.7 % (37.2-46.3); HGB 8.9 g/dL (12.0-15.0); MCH 30.6 pg (27.0-32.0); MCHC 33.3 g/dL (32.0-37.0); MCV 91.8 FL (80.0-97.0); NRBC Per 100 WBC 0.02 X 10*3/uL (0.00-0.01); Platelet Count 229 X 10*3/uL (140-440); RBC 2.91 X 10*6/uL (4.10-5.20); RDW 19.9 % (11.5-14.5); WBC 9.83 X 10*3/uL (4.50-10.00)
[2023-07-23 08:47] LABS: ALT 23 U/L (8-44); AST 34 U/L (13-35); Albumin 2.7 g/dL (3.8-4.9); Albumin/Globulin Ratio 1.17 Ratio (1.60-3.17); Alkaline Phosphatase 106 U/L (41-126); BUN/Creat Ratio 8.38 Ratio (12.00-20.00); Blood Urea Nitrogen 20.1 mg/dL (9.0-27.0); Calcium 8.4 mg/dL (8.7-10.3); Carbon Dioxide 21.6 mmol/L (21.6-31.8); Chloride 116 mmol/L (96-109); Globulin 2.3 g/dL (1.6-3.3); Glucose 100 mg/dL (70-110); Magnesium 1.9 mg/dL (1.5-2.4); Potassium 4.3 mmol/L (3.5-5.5); Sodium 144 mmol/L (135-145); Total Bilirubin 0.5 mg/dL (0.3-1.2)
--- NOTE | 2023-07-23 12:00 | P.PN ---
Subjective Patient is seen in follow-up for acute kidney injury on chronic kidney disease. Renal function stable. Receiving D5W. Sodium level better. Now on Aldactone and Bumex. Has been voiding. No vomiting or diarrhea. Vital signs are stable. General: No acute distress. HEENT: Head exam is unremarkable. LUNGS: No audible rhonchi or wheezes. HEART: Rate and Rhythm are regular. ABDOMEN: Soft, nontender. EXTREMITITES: Trace edema. Objective - Vital Signs Vital signs: Vital Signs Temp 97.6 F 07/23/23 08:00 Pulse 62 07/23/23 10:49 Resp 18 07/23/23 08:00 BP 121/56 07/23/23 10:49 Pulse Ox 100 07/23/23 08:00 FiO2 Intake & Output 07/22/23 07/23/23 07/23/23 18:59 06:59 18:59 Intake Total 718 240 Output Total 401 1 Balance 317 240 -1 Intake: Oral 718 240 Output: Urine 400 Stool 1 1 Other: Voiding Method Bedside Commode Bedside Commode Bedside Commode # Voids 1 2 # Bowel Movements 2 - Labs CBC & Chem 7: 07/23/23 05:53 07/23/23 05:53 Labs: Abnormal Lab Results - Last 24 Hours (Table) 07/22/23 07/23/23 07/23/23 Range/Units 05:56 05:53 05:53 RBC 2.89 L 2.91 L (4.10-5.20) X 10*6/uL Hgb 8.9 L 8.9 L (12.0-15.0) g/dL Hct 27.3 L 26.7 L (37.2-46.3) % RDW 19.9 H 19.9 H (11.5-14.5) % MPV 14.1 H (9.5-12.2) FL NRBC/100 WBC Diff 0.04 H 0.02 H (0.00-0.01) X 10*3/uL Chloride 116 H (96-109) mmol/L Creatinine 2.4 H (0.6-1.5) mg/dL Est GFR (CKD-EPI) 22 L (>=60) BUN/Creatinine Ratio 8.38 L (12.00-20.00) Ratio Calcium 8.4 L (8.7-10.3) mg/dL Total Protein 5.0 L (6.2-8.2) g/dL Albumin 2.7 L (3.8-4.9) g/dL Albumin/Globulin Ratio 1.17 L (1.60-3.17) Ratio Assessment and Plan Plan: Assessment: 1. Acute kidney injury secondary to ATN. Creatinine 2.47 on admission and is stable at 2.4 today. UA benign. No hydronephrosis noted on kidney ultrasound. Left kidney atrophic. 2. Chronic kidney disease stage IIIb with baseline creatinine in the range of 1.5-2 secondary to hepatorenal syndrome. 3. Alcohol induced liver cirrhosis. 4. Hypernatremia from lack of oral water intake. On D5W. better. 5. Hypokalemia from poor intake and diuretic use. Replaced. 6. Metabolic acidosis secondary to acute kidney injury and GI losses. Also component of respiratory compensation. Stable. 7. Anemia of chronic kidney disease. Iron replete. On Aranesp. Plan: Hep-Lock IV fluids. Maintain low-salt diet. Avoid nephrotoxins. Maintain maintain spironolactone 25 mg twice daily. Decrease Bumex to 0.5 mg once daily. Continue to monitor renal function and urine output. Repeat BMP and magnesium level 2 to 3 days postdischarge. Follow-up outpatient in 1 week. Advised patient to monitor her weight closely at home and to notify physician if develops edema or gains more than 3 pounds in 1 week duration.
[2023-07-23] MEDS: BUMETANIDE 0.5 MG TABLET PO SCH (14:11)
--- NOTE | 2023-07-23 14:42 | P.PN ---
Subjective Progress Note Date: 07/23/23 Hospital Course: Patient is a pleasant 68-year-old female with a past medical history of alcoholic liver cirrhosis, stage IIIB chronic kidney disease, hypertension, anxiety and depression, PVD and COPD with continued nicotine dependence. She presented to the emergency department secondary to concerns of altered mental status and generalized weakness believed to be secondary to elevated ammonia levels. Patient's brother at bedside reports patient was her baseline normal and went for cardiac cath on Friday with Dr. De La Torre. He reports over the last few days that she has not been taking her lactulose as she is supposed to and woke up to be very confused. He reports she was just started on Bumex 2 mg daily a few weeks ago and other than that there have been no other medication changes. She was evaluated in the emergency department. Vital signs upon arrival show blood pressure 158/72, heart rate 68, respiratory rate 18, temp 97.1 F, and SpO2 of 98% on room air. EKG completed showing sinus rhythm with occasional PACs at [address] brain negative for acute hemorrhage or mass effect showing degenerative and remote ischemic changes. CTA head and neck was negative for acute intracranial process and no evidence of carotid stenosis and no evidence of dissection of the cervical internal carotid or vertebral arteries. Chest x- ray showing COPD with interstitial markings consistent with chronic interstitial lung disease, and small right pleural effusion. Labs were completed and reviewed. CBC showing macrocytic anemia with hemoglobin of 9.5 and MCH are 101.5. Coagulation profile showing slightly elevated INR of 1.2. BMP showing mild hyponatremia with sodium of 147, hypokalemia with potassium of 3.3, metabolic acidosis with hyperchloremia with chloride of 117, hypercarbia with bicarb of 21, and anion gap of 9 as well as acute kidney injury on stage IIIb chronic kidney disease with BUN of 30, creatinine of 2.47, and GFR of 20. Blood glucose was normal findings at 107. Liver profile showing elevated alkaline ph osphatase of 140. Ammonia levels elevated at 71. Creatinine continues normal findings at 66. Troponin elevated at 0.055. Serum alcohol level was less than 10. Patient was admitted under our services with consultation to nephrology. Physical exam: Patient seen and fully evaluated at bedside this morning. Her mentation remains improved at baseline, she denies having any complaints at this time. She is visiting with her brother at bedside. Patient and her brother updated on plan, if patient's sodium remains stable off of D5W infusion, will plan for likely discharge tomorrow morning. Vital signs reviewed and stable. General: Nontoxic, no distress and appears stated age. Chronically ill- appearing. Derm: Skin warm and dry, jaundiced Head: Atraumatic, normocephalic and symmetric. Eyes: EOMs intact, no lid lag, and anicteric sclera Mouth: no lip lesions, mucus membranes moist Cardiovascular: regular rate and rhythm with normal S1S2, systolic murmur, positive posterior tibial pulses bilaterally, and cap refill < 2 seconds. Lungs: Respirations even, regular, and unlabored on room air. Lungs CTA b ilaterally, no rhonchi, no rales, no wheezing, and no accessory muscle usage. Abdominal: soft, nontender to palpation, no guarding, no appreciable organomegaly Ext: No gross muscle atrophy. Movement and sensation intact in bilateral upper and lower extremities. Venous stasis discoloration bilateral lower extremities. BLE tight and edemedous with opening of chronic ulcer on LLE Neuro: Speech clear, face symmetrical and CN II-XII grossly intact with no noted focal neuro deficits Psych: Alert and oriented to person, place, time, and situation. Appropriate and pleasant affect. GCS 15. Assessment and Plan of Care: Acute kidney injury on stage IIIb chronic kidney disease with urinary retention Hypernatremia Elevated troponins. Likely secondary to elevated renal function, troponins flat and patient asymptomatic of cardiac complaints. Non anion gap metabolic acidosis Hepatic encephalopathy, resolved Macrocytic anemia, acute on chronic Alcoholic liver cirrhosis Elevated liver enzymes secondary to alcoholic liver cirrhosis Elevated INR secondary to alcoholic liver cirrhosis -Continue lactulose to 30 g 4 times daily and rifaximin 550 mg twice daily. -Hyperammonemia resolved with morning ammonia level 16. Mentation has improved and back to baseline, neurochecks to continue every 8 hours. -Hypernatremia resolved on D5W infusion with current sodium of 144, discussed with finish mill operator and D5W infusion to 75 cc/h and recommending patient to continue with diuretics including Bumex and Aldactone. -Continue fall precautions. -Telemetry monitoring. -Gonsalez catheter was discontinued and patient urinating without any difficulties with no reported retention. -Nephrology following, discussed plan of care with Dr. Lee, D5W infusion to continue until noon and then be stopped. Bumex was decreased to 0.5 mg daily and patient to continue Aldactone 25 mg twice daily. -Renal ultrasound reporting no significant abnormality noted. Urinalysis was negative for blood, protein, ketones, or infection. Acute on chronic ulcer left lower extremity -Patient edematous this morning and has new opening on chronic left lower extremity ulcer, seeping clear fluids. No obvious signs of infection noted. -Instructed staff on use of [employer] while awaiting wound care evaluation and further recommendations. -Consult placed to wound care, appreciate recommendations. Hypokalemia. Resolved. Morning potassium 4.3. We will continue to monitor with repeat morning labs and replace abnormal electrolyte values if indicated based upon these results. Anxiety and depression. Patient to continue daily medication regimen with Prozac 40 mg daily, COPD with continued nicotine dependence, not in acute exacerbation -Recommend smoking cessation. Continue nicotine patch daily 14 mg daily. -Continue DuoNebs 4 times daily as needed for shortness of breath and/or wheezing. Data and imaging reviewed: -Labs completed and reviewed. CBC showing anemia with hemoglobin of 8.9 otherwise stable. BMP revealing resolution of hypernatremia with sodium of 144, hyperchloremia with chloride of 116 and continued elevation of renal function with BUN of 20.1, creatinine of 2.4, and GFR of 22. -Vital signs reviewed. Blood pressure 124/46, heart rate 67, respiratory rate 18, temp 97.6 F, and SpO2 of 100% on room air. CODE STATUS: Full code DVT prophylaxis: SCDs and ERIC hose Anticipated discharge date: Possibly tomorrow morning if sodium levels remain stable after discontinuation of D5W infusion. Anticipated discharge place: Home Patient was seen independently by Nurse Practitioner. This document was prepared using [employer] dictation software. Please allow for errors in air transportation provider while rare they do occur. Ronni Ansari NP rendered care for this patient independently, reviewed the findings and plan as documented in the note above. I did not physically speak with or examine the patient on this date. Objective - Vital Signs Vital signs: Vital Signs Temp 98.6 F 07/23/23 02:00 Pulse 58 L 07/23/23 02:00 Resp 16 07/23/23 02:00 BP 142/68 07/23/23 02:00 Pulse Ox 96 07/23/23 02:00 FiO2 Intake & Output 07/22/23 07/23/23 07/23/23 18:59 06:59 18:59 Intake Total 718 240 Output Total 401 Balance 317 240 Intake: Oral 718 240 Output: Urine 400 Stool 1 Other: Voiding Method Bedside Commode Bedside Commode # Voids 1 2 # Bowel Movements 2 - Labs CBC & Chem 7: 07/23/23 05:53 07/23/23 05:53 Labs: Abnormal Lab Results - Last 24 Hours (Table) 07/22/23 07/22/23 07/23/23 Range/Units 05:56 05:56 05:53 RBC 2.89 L 2.91 L (4.10-5.20) X 10*6/uL Hgb 8.9 L 8.9 L (12.0-15.0) g/dL Hct 27.3 L 26.7 L (37.2-46.3) % RDW 19.9 H 19.9 H (11.5-14.5) % MPV 14.1 H (9.5-12.2) FL NRBC/100 WBC Diff 0.04 H 0.02 H (0.00-0.01) X 10*3/uL Sodium 148 H (135-145) mmol/L Chloride 118 H (96-109) mmol/L Creatinine 2.2 H (0.6-1.5) mg/dL Est GFR (CKD-EPI) 24 L (>=60) BUN/Creatinine Ratio 9.32 L (12.00-20.00) Ratio AST 38 H (13-35) U/L Total Protein 5.2 L (6.2-8.2) g/dL Albumin 2.9 L (3.8-4.9) g/dL Albumin/Globulin Ratio 1.26 L (1.60-3.17) Ratio
--- NOTE | 2023-07-24 11:54 | P.PN ---
Subjective Patient is seen in follow-up for acute kidney injury on chronic kidney disease. Renal function stable as of yesterday. On Aldactone and Bumex. Has been voiding. No vomiting or diarrhea. Vital signs are stable. General: No acute distress. HEENT: Head exam is unremarkable. LUNGS: No audible rhonchi or wheezes. HEART: Rate and Rhythm are regular. ABDOMEN: Soft, nontender. EXTREMITITES: Trace edema. Objective - Vital Signs Vital signs: Vital Signs Temp 98.7 F 07/24/23 07:47 Pulse 62 07/24/23 09:00 Resp 16 07/24/23 09:00 BP 151/60 07/24/23 07:47 Pulse Ox 98 07/24/23 07:47 FiO2 Intake & Output 07/23/23 07/24/23 07/24/23 18:59 06:59 18:59 Intake Total 800 240 Output Total 602 1 Balance 198 240 -1 Intake: Oral 800 240 Output: Urine 600 Stool 2 1 Other: Voiding Method Bedside Commode Bedside Commode Bedside Commode # Voids 2 2 2 # Bowel Movements 3 1 - Labs CBC & Chem 7: 07/23/23 05:53 07/23/23 05:53 Assessment and Plan Plan: Assessment: 1. Acute kidney injury secondary to ATN. Creatinine 2.47 on admission - stable at 2.4 yesterday. UA benign. No hydronephrosis noted on kidney ultrasound. Left kidney atrophic. 2. Chronic kidney disease stage IIIb with baseline creatinine in the range of 1.5-2 secondary to hepatorenal syndrome. 3. Alcohol induced liver cirrhosis. 4. Hypernatremia from lack of oral water intake. On D5W. better. 5. Hypokalemia from poor intake and diuretic use. Replaced. 6. Metabolic acidosis secondary to acute kidney injury and GI losses. Also com ponent of respiratory compensation. Stable. 7. Anemia of chronic kidney disease. Iron replete. On Aranesp. Plan: Maintain low-salt diet. Avoid nephrotoxins. Maintain spironolactone 25 mg twice daily. Maintain Bumex 0.5 mg once daily. Continue to monitor renal function and urine output. Repeat BMP and magnesium level 2 to 3 days postdischarge. Follow-up outpatient in 1 week. Advised patient to monitor her weight closely at home and to notify physician if develops edema or gains more than 3 pounds in 1 week duration.
[2023-07-24 12:14] LABS: African American GFR (CKD) 29 (>60 ml/min/1.73 sqM); Anion Gap 6 mmol/L; Blood Urea Nitrogen 21 mg/dL (7-17); Calcium 8.8 mg/dL (8.4-10.2); Carbon Dioxide 18 mmol/L (22-30); Chloride 118 mmol/L (98-107); Glucose 99 mg/dL (74-99); Non-African American GFR(CKD) 25 (>60 ml/min/1.73 sqM); Potassium 4.5 mmol/L (3.5-5.1); Sodium 142 mmol/L (137-145)
--- NOTE | 2023-07-24 13:34 | P.DS ---
Providers Date of admission: 07/18/23 16:48 Expected date of discharge: 07/24/23 Attending physician: Tova Macias DO Consults: 07/18/23 17:50 Consult Physician Routine Consulting Provider: Margo Nguyen Consult Reason/Comments: CATIE on CKD Do you want consulting provider notified?: Yes Primary care physician: Stated None Hospital Course: Discharge Diagnosis: Acute kidney injury on stage IIIb chronic kidney disease with urinary retention. Renal ultrasound reporting no significant abnormality noted. Urinalysis was negative for blood, protein, ketones, or infection. Urinary retention resolved. Renal function improving with creatinine increasing down from 2.5 down to 2.05 this morning Patient was evaluated by planner scheduler, Bumex dose was decreased down to 0.5 mg daily and patient was started on Aldactone 25 mg twice daily. She was given a dose of darbepoetin and to continue to receive outpatient at nephrology office. Hypernatremia. Resolved after IV fluid hydration with D5W. Maintaining normal sodium level on diuretics with no further fluid administration for greater than 24 hours. Currently sodium is 142. Patient to have repeat BMP in 2 days with results to be sent to PCP, planner scheduler, and wireless network engineer for follow-up and management. Elevated troponins. Likely secondary to elevated renal function, troponins flat and patient asymptomatic of cardiac complaints. Non anion gap metabolic acidosis Hepatic encephalopathy, resolved Macrocytic anemia, acute on chronic Alcoholic liver cirrhosis Elevated liver enzymes secondary to alcoholic liver cirrhosis Elevated INR secondary to alcoholic liver cirrhosis Acute on chronic ulcer left lower extremity. Continue to apply Medihoney daily, patient to follow-up with wound care clinic and discharged home with [facility]. Hypokalemia. Resolved. Morning potassium 4.5. We will continue to monitor with repeat morning labs and replace abnormal electrolyte values if indicated based upon these results. Anxiety and depression. Patient to continue daily medication regimen with Prozac 40 mg daily, COPD with continued nicotine dependence, not in acute exacerbation Hospital Course: Patient is a pleasant 68-year-old female with a past medical history of alcoholic liver cirrhosis, stage IIIB chronic kidney disease, hypertension, anxiety and depression, PVD and COPD with continued nicotine dependence. She presented to the emergency department secondary to concerns of altered mental status and generalized weakness believed to be secondary to elevated ammonia levels. Patient's brother at bedside reports patient was her baseline normal and went for cardiac cath on Friday with Dr. De La Torre. He reports over the last few days that she has not been taking her lactulose as she is supposed to and woke up to be very confused. He reports she was just started on Bumex 2 mg daily a few weeks ago and other than that there have been no other medication changes. She was evaluated in the emergency department. Vital signs upon arrival show blood pressure 158/72, heart rate 68, respiratory rate 18, temp 97.1 F, and SpO2 of 98% on room air. EKG completed showing sinus rhythm with occasional PACs at [address] brain negative for acute hemorrhage or mass effect showing degenerative and remote ischemic changes. CTA head and neck was negative for acute intracranial process and no evidence of carotid stenosis and no evidence of dissection of the cervical internal carotid or vertebral arteries. Chest x- ray showing COPD with interstitial markings consistent with chronic interstitial lung disease, and small right pleural effusion. Labs were completed and reviewed. CBC showing macrocytic anemia with hemoglobin of 9.5 and MCH are 101.5. Coagulation profile showing slightly elevated INR of 1.2. BMP showing mild hyponatremia with sodium of 147, hypokalemia with potassium of 3.3, metabolic acidosis with hyperchloremia with chloride of 117, hypercarbia with bicarb of 21, and anion gap of 9 as well as acute kidney injury on stage IIIb chronic kidney disease with BUN of 30, creatinine of 2.47, and GFR of 20. Blood glucose was normal findings at 107. Liver profile showing elevated alkaline phosphatase of 140. Ammonia levels elevated at 71. Creatinine continues normal findings at 66. Troponin elevated at 0.055. Serum alcohol level was less than 10. Patient was admitted under our services with consultation to nephrology. Patient had full resolution of hyperammonemia resulting in full resolution of hepatic encephalopathy. Her mentation is back to baseline and has maintained baseline. Her renal function has been improving and hypernatremia resolved after D5W infusion and changes to diuretics. Medically, patient is stable for discharge at this time. She was cleared by nephrology. Patient will need to repeat BMP and magnesium levels in 2 days and to follow-up outpatient with PCP, planner scheduler, and wireless network engineer. Bumex decreased down to 0.5 mg daily and patient was started on Aldactone 25 mg twice daily, prescription sent. Patient discharged home with [facility] Physical exam: Patient seen and fully evaluated at bedside this morning. Her mentation remains at baseline, she reports feeling great and denies having any complaints at this time. She is eagerly anticipating discharge home today. She made an appointment with Dr. Wright, PCP for follow-up tomorrow. Patient and her brother at bedside were given discharge instructions. Vital signs reviewed and stable. General: Nontoxic, no distress and appears stated age. Chronically ill- appearing. Derm: Skin warm and dry, jaundiced Head: Atraumatic, normocephalic and symmetric. Eyes: EOMs intact, no lid lag, and anicteric sclera Mouth: no lip lesions, mucus membranes moist Cardiovascular: regular rate and rhythm with normal S1S2, systolic murmur, positive posterior tibial pulses bilaterally, and cap refill < 2 seconds. Lungs: Respirations even, regular, and unlabored on room air. Lungs CTA bilaterally, no rhonchi, no rales, no wheezing, and no accessory muscle usage. Abdominal: soft, nontender to palpation, no guarding, no appreciable organomegaly Ext: No gross muscle atrophy. Movement and sensation intact in bilateral upper and lower extremities. Venous stasis discoloration bilateral lower extremities. BLE tight and edemedous with opening of chronic ulcer on LLE Neuro: Speech clear, face symmetrical and CN II-XII grossly intact with no noted focal neuro deficits Psych: Alert and oriented to person, place, time, and situation. Appropriate and pleasant affect. GCS 15. A total of 39 minutes of time were spent preparing [facility]. Pt was discharged on 07/24/2023 at 1:09 PM. Patient was seen independently by Nurse Practitioner. This document was prepared using [employer] dictation software. Please allow for errors in track superintendent while rare they do occur. Ronni Ansari NP rendered care for this patient independently, reviewed the findings and plan as documented in the note above. I did not physically speak with or examine the patient on this date. Patient Condition at Discharge: Stable Plan - Discharge Summary Discharge Rx Participant: No New Discharge Prescriptions: New Spironolactone [Aldactone] 25 mg PO BID 90 Days #180 tab Darbepoetin Osei [Aranesp] 40 mcg SQ Q7D each Bumetanide [BUMEX] 0.5 mg PO DAILY 90 Days #90 tab Continue Aspirin EC [Ecotrin Low Dose] 81 mg PO DAILY Cholecalciferol [Vitamin D3 (25 Mcg = 1000 Iu)] 25 mcg PO DAILY Ferrous Sulfate [Iron (65 MG Elemental)] 325 mg PO DAILY Melatonin 5 mg PO HS Rifaximin [Xifaxan] 550 mg PO BID FLUoxetine HCL 40 mg PO DAILY Lactulose [Cephulac] 30 gm PO TID traZODone HCL [Desyrel] 50 mg PO HS Omeprazole 20 mg PO DAILY Vitamin E (Dl,Tocopheryl Acet) [Vitamin E (400 Iu = 180 mg)] 400 unit PO DAILY Discontinued Bumetanide [BUMEX] 2 mg PO DAILY Discharge Medication List Aspirin EC [Ecotrin Low Dose] 81 mg PO DAILY 02/08/19 [History] Cholecalciferol [Vitamin D3 (25 Mcg = 1000 Iu)] 25 mcg PO DAILY 01/16/23 [History] Ferrous Sulfate [Iron (65 MG Elemental)] 325 mg PO DAILY 07/10/23 [History] Lactulose [Cephulac] 30 gm PO TID 07/10/23 [History] Melatonin 5 mg PO HS 07/10/23 [History] Omeprazole 20 mg PO DAILY 07/10/23 [History] Rifaximin [Xifaxan] 550 mg PO BID 07/10/23 [History] Vitamin E (Dl,Tocopheryl Acet) [Vitamin E (400 Iu = 180 mg)] 400 unit PO DAILY 07/10/23 [History] traZODone HCL [Desyrel] 50 mg PO HS 07/10/23 [History] FLUoxetine HCL 40 mg PO DAILY 07/15/23 [History] Bumetanide [BUMEX] 0.5 mg PO DAILY 90 Days #90 tab 07/24/23 [Rx] Darbepoetin Osei [Aranesp] 40 mcg SQ Q7D each 07/24/23 [Rx] Spironolactone [Aldactone] 25 mg PO BID 90 Days #180 tab 07/24/23 [Rx] Follow up Appointment(s)/Referral(s): [facility], [NON-STAFF] - 1 Week Sejal Crump MD [STAFF PHYSICIAN] - 2 Weeks Zac Wright MD [REFERRING] - 1-2 Days (Follow up with your PCP, Dr. Wright as scheduled tomorrow (07/25/23)) Myles Lee DO [STAFF PHYSICIAN] - 1 Week Ambulatory/Diagnostic Orders: Basic Metabolic Panel [LAB.AMB] Time Frame: 2 Days, Location: None Selected Magnesium [LAB.AMB] Location: None Selected Patient Instructions/Handouts: Hepatic Encephalopathy (DC) Activity/Diet/Wound Care/Special Instructions: Activity: As tolerated. Take breaks as needed. Diet: Heart healthy and carb consistent diet. Avoid salts, or foods with hidden salts such as canned or boxed foods and frozen dinners. Extra salt makes your heart work harder and traps the fluid in your body for longer. Special Instructions: Take all of your medications as directed and remember to keep all of your doctor's appointments and follow-up as needed. As we discussed, it is important to get your outpatient labs to follow-up on your sodium level and renal function. These results will be sent to your primary care doctor, wireless network engineer and planner scheduler for follow-up and management. Also, as discussed it is important to have strict adherence to taking your rifaximin and lactulose to prevent further episodes of hepatic encephalopathy in the future. Apply Medihoney to Left lower extremity chronic wound daily. Thank you for allowing us to participate in your care, it was truly a pleasure having you for our patient!!! . Discharge Disposition: HOME WITH HOME HEALTH SERVICES
[2023-07-24 13:39] VITALS: BP 123/59; PULSE 63; RESP 18; TEMP 97.2
== END 2023-07-24 16:30 | disposition home health service (06) | DRG 432 ==
LOC: EC 15:34 → 3SCARD 16:48 → 5NMEDONC 07-19 11:33
PROVIDERS: ADMIT Internal Medicine; ATTEND Internal Medicine
PROC: HZ2ZZZZ Detoxification Services for Substance Abuse Treatment (ICD-10-PCS; principal; 2023-07-18)
DX: K70.30 Alcoholic cirrhosis of liver without ascites (principal); K76.7 Hepatorenal syndrome; N17.0 Acute kidney failure with tubular necrosis; I13.0 Hypertensive heart and chronic kidney disease with heart failure and stage 1 through stage 4 chronic kidney disease, or unspecified chronic kidney disease; I87.312 Chronic venous hypertension (idiopathic) with ulcer of left lower extremity; E87.0 Hyperosmolality and hypernatremia; J84.9 Interstitial pulmonary disease, unspecified; L97.229 Non-pressure chronic ulcer of left calf with unspecified severity; L97.329 Non-pressure chronic ulcer of left ankle with unspecified severity; L97.922 Non-pressure chronic ulcer of unspecified part of left lower leg with fat layer exposed; E87.1 Hypo-osmolality and hyponatremia; K70.40 Alcoholic hepatic failure without coma; I50.9 Heart failure, unspecified; I87.2 Venous insufficiency (chronic) (peripheral); D53.9 Nutritional anemia, unspecified; R33.8 Other retention of urine; K76.82 Hepatic encephalopathy; N26.1 Atrophy of kidney (terminal); D63.1 Anemia in chronic kidney disease; E87.6 Hypokalemia; F41.9 Anxiety disorder, unspecified; F32.A Depression, unspecified; I70.249 Atherosclerosis of native arteries of left leg with ulceration of unspecified site; E11.22 Type 2 diabetes mellitus with diabetic chronic kidney disease; N18.32 Chronic kidney disease, stage 3b; E87.8 Other disorders of electrolyte and fluid balance, not elsewhere classified; F17.210 Nicotine dependence, cigarettes, uncomplicated; I48.91 Unspecified atrial fibrillation; E11.51 Type 2 diabetes mellitus with diabetic peripheral angiopathy without gangrene; K21.9 Gastro-esophageal reflux disease without esophagitis; J44.9 Chronic obstructive pulmonary disease, unspecified; R79.1 Abnormal coagulation profile; Z79.82 Long term (current) use of aspirin; Z79.899 Other long term (current) drug therapy; Z86.61 Personal history of infections of the central nervous system; Z86.73 Personal history of transient ischemic attack (TIA), and cerebral infarction without residual deficits; Z87.11 Personal history of peptic ulcer disease; Z96.642 Presence of left artificial hip joint; Z90.49 Acquired absence of other specified parts of digestive tract
CPT/HCPCS: 36415; 70450; 70496; 70498; 71045; 76770; 80048; 80053; 80320; 81001; 82140; 82550; 82728; 83540; 83550; 83735; 84484; 85025; 85027; 85610; 85730; 93005; 96361; 96365; 96366; 96367; 99291

== ENCOUNTER 2023-08-08 08:45 | Inpatient (IN) | payer MEDICARE, OTHER ==
[2023-08-08] MEDS: SODIUM CHLORIDE 0.9% 500 ML 500 ML IV STA (09:20)
[2023-08-08 09:39] LABS: Amorphous Sediment,Urine Rare /hpf; Appearance,Urine Clear (Clear); Bacteria,Urine Many /hpf; Bilirubin,Urine Negative (Negative); Blood,Urine Negative (Negative); Color,Urine Colorless; Glucose,Urine (UA) Negative (Negative); Hyaline Casts,Urine 6 /lpf (0-2); Ketones,Urine Negative (Negative); Leukocyte Esterase,Urine Moderate (Negative); Mucus,Urine Rare /hpf; Nitrite,Urine Negative (Negative); PH, Urine 5.5 (5.0-8.0); Protein,Urine Negative (Negative); RBC,Urine <1 /hpf (0-5); Specific Gravity,Urine 1.011 (1.001-1.035); Squamous Epithelial Cell,Urine 1 /hpf (0-4); Urobilinogen,Urine <2.0 mg/dL (<2.0); WBC,Urine 10 /hpf (0-5)
[2023-08-08 09:44] LABS: Anisocytosis Slight; Basophils # (A) 0.1 k/uL (0-0.2); Basophils % (A) 2 %; Eosinophils # (A) 0.2 k/uL (0-0.7); Eosinophils % (A) 5 %; HCT 37.5 % (34.0-46.0); HGB 11.1 gm/dL (11.4-16.0); Hypochromasia Marked; Lymphocytes # (A) 1.3 k/uL (1.0-4.8); Lymphocytes % (A) 24 %; MCHC 29.5 g/dL (31.0-37.0); MCV 104.8 fL (80.0-100.0); Macrocytosis Moderate; Mean Platelet Volume 9.4; Monocytes # (A) 0.4 k/uL (0-1.0); Monocytes % (A) 8 %; Neutrophils # (A) 3.2 k/uL (1.3-7.7); Neutrophils % (A) 60 %; Platelet Count 233 k/uL (150-450); RBC 3.58 m/uL (3.80-5.40); RDW 17.2 % (11.5-15.5); WBC 5.3 k/uL (3.8-10.6)
[2023-08-08 09:47] LABS: ALT 28 U/L (4-34); AST 34 U/L (14-36); African American GFR (CKD) 21 (>60 ml/min/1.73 sqM); Alcohol <10 mg/dL; Alkaline Phosphatase 155 U/L (38-126); Anion Gap 8 mmol/L; Blood Urea Nitrogen 39 mg/dL (7-17); Calcium 9.7 mg/dL (8.4-10.2); Carbon Dioxide 16 mmol/L (22-30); Chloride 120 mmol/L (98-107); Glucose 113 mg/dL (74-99); Magnesium 2.6 mg/dL (1.6-2.3); Non-African American GFR(CKD) 19 (>60 ml/min/1.73 sqM); Potassium 5.5 mmol/L (3.5-5.1); Sodium 144 mmol/L (137-145); Total Bilirubin 0.7 mg/dL (0.2-1.3)
--- NOTE | 2023-08-08 09:52 | XR ---
EXAMINATION TYPE: XR chest 2V DATE OF EXAM: 08/08/2023 COMPARISON: 07/18/2023 HISTORY: Shortness of breath TECHNIQUE: Frontal and lateral views of the chest are obtained. FINDINGS: Scattered senescent parenchymal changes noted. Hyperinflation compatible with COPD. No evidence for infiltrate. No evidence for atelectasis. Heart size is stable. Mediastinal structures are stable and grossly unremarkable. No evidence for hilar prominence. Degenerative changes dorsal spine. IMPRESSION: 1. No evidence for acute pulmonary disease.
[2023-08-08 09:57] LABS: Amphetamine Screen,Urine Not Detected (NotDetected); Barbiturate Screen,Urine Not Detected (NotDetected); Benzodiazepines Screen,Urine Not Detected (NotDetected); Cocaine Screen,Urine Not Detected (NotDetected); Methadone Screen, Urine Not Detected (NotDetected); Opiate Screen,Urine Detected (NotDetected); Oxycodone Screen, Urine Not Detected (NotDetected); Phencyclidine Screen,Urine Not Detected (NotDetected); Tricyclic Antidepressant,Urine Not Detected (NotDetected); Urn Cannabinoid Scrn Not Detected (NotDetected)
[2023-08-08 10:31] LABS: Prothrombin Time 11.4 sec (10.0-12.5)
[2023-08-08 10:43] LABS: Partial Thromboplastin Time 20.6 sec (22.0-30.0)
--- NOTE | 2023-08-08 11:22 | ED ---
General Adult HPI - General Chief complaint: Dizziness Stated complaint: dizziness,back pain Time Seen by Provider: 08/08/23 09:00 Source: patient, RN notes reviewed, old records reviewed Mode of arrival: EMS Limitations: altered mental status - History of Present Illness Initial comments: This is a 68-year-old female who is coming to the emergency department for generalized weakness and lightheadedness. Patient also had some nausea earlier today. Patient denies any chest pain shortness of breath or difficulty breathing. Patient denies any headache patient denies any focal numbness or weakness. Patient has abdominal pain patient has nausea vomiting diarrhea. Patient states she just feels completely fatigued and weak. Patient states sometimes when she is up she feels a little lightheaded as well. Patient denies any recent fever chills or cough. Patient states some of her meds got mixed up so she may have taken double dose of trazodone or one of her other meds she is not really sure. - Related Data Home Medications Medication Instructions Recorded Confirmed Aspirin EC [Ecotrin Low Dose] 81 mg PO DAILY 02/08/19 08/08/23 Ferrous Sulfate [Iron (65 MG 325 mg PO DAILY 07/10/23 08/08/23 Elemental)] Lactulose [Cephulac] 30 gm PO TID 07/10/23 08/08/23 Melatonin 5 mg PO HS 07/10/23 08/08/23 Omeprazole 20 mg PO DAILY 07/10/23 08/08/23 Rifaximin [Xifaxan] 550 mg PO BID 07/10/23 08/08/23 Vitamin E (Dl,Tocopheryl Acet) 400 unit PO DAILY 07/10/23 08/08/23 [Vitamin E (400 Iu = 180 mg)] traZODone HCL [Desyrel] 50 mg PO HS 07/10/23 08/08/23 FLUoxetine HCL 40 mg PO DAILY 07/15/23 08/08/23 Cholecalciferol [Vitamin D3 (125 125 mcg PO DAILY 08/08/23 08/08/23 Mcg = 5000 Iu)] Vit C/E/Zn/Coppr/Lutein/Zeaxan 1 cap PO BID 08/08/23 08/08/23 [Preservision Areds 2 Softgel] Previous Rx's Medication Instructions Recorded Bumetanide [BUMEX] 0.5 mg PO DAILY 90 Days #90 tab 03/28/24 Spironolactone [Aldactone] 25 mg PO BID 90 Days #180 tab 07/24/23 Allergies Allergy/AdvReac Type Severity Reaction Status Date / Time No Known Allergies Allergy Verified 08/08/23 10:15 Review of Systems ROS Statement: Those systems with pertinent positive or pertinent negative responses have been documented in the HPI. ROS Other: All systems not noted in ROS Statement are negative. 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(effects speech and balance), carotid artery disease, fluctuating blood pressure, enlarged heart/value issues, edema in joon legs, hx hiatal hernia, chronic venous insufficiency-"hard time healing" History of Any Multi-Drug Resistant Organisms: None Reported Date of last positivie culture/infection: 2011 MDRO Source:: stool Past Surgical History: Cholecystectomy, Heart Catheterization, Joint Replacement Additional Past Surgical History / Comment(s): SURGERY ON SPLEEN, left hip replacement, JONA Past Anesthesia/Blood Transfusion Reactions: Previous Problems w/ Anesthesia Additional Past Anesthesia/Blood Transfusion Reaction / Comment(s): "trouble waking her up" per brother Past Psychological History: Anxiety, Depression Smoking Status: Current every day smoker Past Alcohol Use History: None Reported Past Drug Use History: None Reported - Past Family History Mother Family Medical History: Cancer Additional Family Medical History / Comment(s): Breast cancer/lung cancer, enlarged heart. Father Family Medical History: Cancer, Deep Vein Thrombosis (DVT) General Exam - General Exam Comments Initial Comments: GENERAL: Patient is well-developed and well-nourished. Patient is nontoxic and well- hydrated and is in mild distress. ENT: Neck is soft and supple. No significant lymphadenopathy is noted. Oropharynx is clear. Moist mucous membranes. Neck has full range of motion without eliciting any pain. EYES: The sclera were anicteric and conjunctiva were pink and moist. Extraocular movements were intact and pupils were equal round and reactive to light. Eyelids were unremarkable. PULMONARY: Unlabored respirations. Good breath sounds bilaterally. No audible rales rhonchi or wheezing was noted. CARDIOVASCULAR: There is a regular rate and rhythm without any murmurs gallops or rubs. ABDOMEN: Soft and nontender with normal bowel sounds. SKIN: Skin is clear with no lesions or rashes and otherwise unremarkable. NEUROLOGIC: Patient is alert and oriented x3. Cranial nerves II through XII are grossly intact. Motor and sensory are also intact. Normal speech, volume and content. Symmetrical smile. MUSCULOSKELETAL: Normal extremities with adequate strength and full range of motion. No lower extremity swelling or edema. No calf tenderness. LYMPHATICS: No significant lymphadenopathy is noted PSYCHIATRIC: Normal psychiatric evaluation. Limitations: altered mental status Course Vital Signs 08/08/23 08/08/23 08/08/23 08:48 09:23 10:44 Temperature 98.0 F Pulse Rate 63 60 47 L Respiratory 18 18 18 Rate Blood Pressure 111/72 154/72 160/67 O2 Sat by Pulse 99 100 98 Oximetry 08/08/23 08/08/23 08/08/23 11:00 12:00 13:00 Temperature Pulse Rate 54 L 54 L 75 Respiratory 18 18 18 Rate Blood Pressure 127/60 143/83 143/83 O2 Sat by Pulse 99 97 95 Oximetry 08/08/23 08/08/23 14:24 14:45 Temperature Pulse Rate 76 62 Respiratory 18 18 Rate Blood Pressure 161/79 124/62 O2 Sat by Pulse 96 100 Oximetry Medical Decision Making - Medical Decision Making EKG is interpreted by myself. EKG shows sinus bradycardia 57 bpm parables 202 QRS is 87 QT interval is 452 QTc is 445. Patient's EKG shows no ST segment ovation or depression. Was pt. sent in by a medical professional or institution (, PA, [facility], urgent care, hospital, or usp...) When possible be specific @ -No Did you speak to anyone other than the patient for history (EMS, parent, family, police, friend...)? What history was obtained from this source @ -No Did you review nursing and triage notes (agree or disagree)? Why? @ -I reviewed and agree with nursing and triage notes Were old charts reviewed (outside hosp., previous admission, EMS record, old EKG, old radiological studies, urgent care reports/EKG's, usp records)? Report findings @ -I compared today's EKG with the previous EKGs no acute changes. I compared to a chest x-ray with a previous chest x-ray today chest x-ray more venous congestion. I also reviewed lab work in comparison to today's and it was stable hemoglobin stable electrolytes. Patient's creatinine was relatively stable as well Differential Diagnosis (chest pain, altered mental status, abdominal pain women, abdominal pain men, vaginal bleeding, weakness, fever, dyspnea, syncope, headache, dizziness, GI bleed, back pain, seizure, CVA, palpatations, mental he alth, musculoskeletal)? @ -Differential Weakness: Hypoglycemia, shock, sepsis, hyponatremia, anemia, infection, OK, ETOH, adverse medicine reaction, overdose, stroke, this is not meant to be an all-inclusive list. EKG interpreted by me (3pts min.). @ -As above X-rays interpreted by me (1pt min.). @ -X-ray shows venous congestion CT interpreted by me (1pt min.). @ -None done U/S interpreted by me (1pt. min.). @ -None done What testing was considered but not performed or refused? (CT, X-rays, U/S, labs)? Why? @ -None What meds were considered but not given or refused? Why? @ -None Did you discuss the management of the patient with other professionals (professionals i.e. , PA, [facility] [facility]ER, lab, RT, psych nurse, pediatric social worker, hand welt butter, teacher, loan officer assistant, foster care case manager)? Give summary @ -[facility] the patient wrote admitting orders Was smoking cessation discussed for >3mins.? @ -No Was critical care preformed (if so, how long)? @ -No Were there social determinants of health that impacted care today? How? (Homelessness, low income, unemployed, alcoholism, drug addiction, transportation, low edu. Level, literacy, decrease access to med. care, care home, rehab)? @ -No Was there de-escalation of care discussed even if they declined (Discuss DNR or withdrawal of care, Hospice)? DNR status @ -No What co-morbidities impacted this encounter? (DM, HTN, Smoking, COPD, CAD, Cancer, CVA, ARF, Chemo, Hep., AIDS, mental health diagnosis, sleep apnea, morbid obesity)? @ -None Was patient admitted / discharged? Hospital course, mention meds given and route, prescriptions, significant lab abnormalities, going to OR and other per tinent info. @ -Patient was given some fluid while in the emergency department also given Rocephin for urinary tract infection. Patient still was kind of groggy though able to answer all questions it was concerning that she may have taken some of her medications at twice the dose. I spoke with [facility] hospitalist they agreed to admit the patient admit the patient wrote admitting orders Undiagnosed new problem with uncertain prognosis? @ -No Drug Therapy requiring intensive monitoring for toxicity (Heparin, Nitro, Insulin, Cardizem)? @ -No Were any procedures done? @ -No Diagnosis/symptom? @ -Weakness generalized Acute, or Chronic, or Acute on Chronic? @ -Acute Uncomplicated (without systemic symptoms) or Complicated (systemic symptoms)? @ -Complicated Side effects of treatment? @ -No Exacerbation, Progression, or Severe Exacerbation? @ -No Poses a threat to life or bodily function? How? (Chest pain, USA, OK, pneumonia, PE, COPD, DKA, ARF, appy, cholecystitis, CVA, Diverticulitis, Homicidal, Suicidal, threat to staff... and all critical care pts) @ -No Diagnosis/symptom? @ -Urinary tract infection Acute, or Chronic, or Acute on Chronic? @ -Acute Uncomplicated (without systemic symptoms) or Complicated (systemic symptoms)? @ -Complicated Side effects of treatment? @ -None Exacerbation, Progression, or Severe Exacerbation] @ -No Poses a threat to life or bodily function? @ -No Diagnosis/symptom? @ -Hepatic encephalopathy Acute, or Chronic, or Acute on Chronic? @ -Acute Uncomplicated (without systemic symptoms) or Complicated (systemic symptoms)? @ -Complicated Side effects of treatment? @ -[none] Exacerbation, Progression, or Severe Exacerbation] @ -[no] Poses a threat to life or bodily function? @ -Yes this can lead to altered mental status. - Lab Data Result diagrams: 08/08/23 09:18 08/08/23 09:18 Lab Results 08/08/23 08/08/23 08/08/23 Range/Units 09:15 09:18 09:18 WBC 5.3 (3.8-10.6) k/uL RBC 3.58 L (3.80-5.40) m/uL Hgb 11.1 L (11.4-16.0) gm/dL Hct 37.5 (34.0-46.0) % MCV 104.8 H (80.0-100.0) fL MCH 31.0 (25.0-35.0) pg MCHC 29.5 L (31.0-37.0) g/dL RDW 17.2 H (11.5-15.5) % Plt Count 233 (150-450) k/uL MPV 9.4 Neutrophils % 60 % Lymphocytes % 24 % Monocytes % 8 % Eosinophils % 5 % Basophils % 2 % Neutrophils # 3.2 (1.3-7.7) k/uL Lymphocytes # 1.3 (1.0-4.8) k/uL Monocytes # 0.4 (0-1.0) k/uL Eosinophils # 0.2 (0-0.7) k/uL Basophils # 0.1 (0-0.2) k/uL Hypochromasia Marked Anisocytosis Slight Macrocytosis Moderate PT (10.0-12.5) sec INR (<1.2) APTT (22.0-30.0) sec Sodium 144 (137-145) mmol/L Potassium 5.5 H (3.5-5.1) mmol/L Chloride 120 H (98-107) mmol/L Carbon Dioxide 16 L (22-30) mmol/L Anion Gap 8 mmol/L BUN 39 H (7-17) mg/dL Creatinine 2.60 H (0.52-1.04) mg/dL Est GFR (CKD-EPI)AfAm 21 (>60 ml/min/1.73 sqM) Est GFR (CKD-EPI)NonAf 19 (>60 ml/min/1.73 sqM) Glucose 113 H (74-99) mg/dL Plasma Lactic Acid [place] (0.7-2.0) mmol/L Calcium 9.7 (8.4-10.2) mg/dL Magnesium 2.6 H (1.6-2.3) mg/dL Total Bilirubin 0.7 (0.2-1.3) mg/dL AST 34 (14-36) U/L ALT 28 (4-34) U/L Alkaline Phosphatase 155 H (38-126) U/L Ammonia (<30) umol/L Troponin I (0.000-0.034) ng/mL Total Protein 6.0 L (6.3-8.2) g/dL Albumin 3.0 L (3.5-5.0) g/dL Urine Color Urine Appearance (Clear) Urine pH (5.0-8.0) Ur Specific [place] (1.001-1.035) Urine Protein (Negative) Urine Glucose (UA) (Negative) Urine Ketones (Negative) Urine Blood (Negative) Urine Nitrite (Negative) Urine Bilirubin (Negative) Urine Urobilinogen (<2.0) mg/dL Ur Leukocyte Esterase (Negative) Urine RBC (0-5) /hpf Urine WBC (0-5) /hpf Ur Squamous Epith Cells (0-4) /hpf Amorphous Sediment (None) /hpf Urine Bacteria (None) /hpf Hyaline Casts (0-2) /lpf Urine Mucus (None) /hpf Urine Opiates Screen Detected H (NotDetected) Ur Oxycodone Screen Not Detected (NotDetected) Urine Methadone Screen Not Detected (NotDetected) Ur Barbiturates Screen Not Detected (NotDetected) U Tricyclic Antidepress Not Detected (NotDetected) Ur Phencyclidine Scrn Not Detected (NotDetected) Ur Amphetamines Screen Not Detected (NotDetected) U Methamphetamines Scrn Not Detected (NotDetected) U Benzodiazepines Scrn Not Detected (NotDetected) Urine Cocaine Screen Not Detected (NotDetected) U Marijuana (THC) Screen Not Detected (NotDetected) Serum Alcohol <10 mg/dL 08/08/23 08/08/23 08/08/23 Range/Units 09:18 09:18 09:18 WBC (3.8-10.6) k/uL RBC (3.80-5.40) m/uL Hgb (11.4-16.0) gm/dL Hct (34.0-46.0) % MCV (80.0-100.0) fL MCH (25.0-35.0) pg MCHC (31.0-37.0) g/dL RDW (11.5-15.5) % Plt Count (150-450) k/uL MPV Neutrophils % % Lymphocytes % % Monocytes % % Eosinophils % % Basophils % % Neutrophils # (1.3-7.7) k/uL Lymphocytes # (1.0-4.8) k/uL Monocytes # (0-1.0) k/uL Eosinophils # (0-0.7) k/uL Basophils # (0-0.2) k/uL Hypochromasia Anisocytosis Macrocytosis PT (10.0-12.5) sec INR (<1.2) APTT (22.0-30.0) sec Sodium (137-145) mmol/L Potassium (3.5-5.1) mmol/L Chloride (98-107) mmol/L Carbon Dioxide (22-30) mmol/L Anion Gap mmol/L BUN (7-17) mg/dL Creatinine (0.52-1.04) mg/dL Est GFR (CKD-EPI)AfAm (>60 ml/min/1.73 sqM) Est GFR (CKD-EPI)NonAf (>60 ml/min/1.73 sqM) Glucose (74-99) mg/dL Plasma Lactic Acid Harrison 1.0 (0.7-2.0) mmol/L Calcium (8.4-10.2) mg/dL Magnesium (1.6-2.3) mg/dL Total Bilirubin (0.2-1.3) mg/dL AST (14-36) U/L ALT (4-34) U/L Alkaline Phosphatase (38-126) U/L Ammonia 182 H (<30) umol/L Troponin I 0.034 (0.000-0.034) ng/mL Total Protein (6.3-8.2) g/dL Albumin (3.5-5.0) g/dL Urine Color Colorless Urine Appearance Clear (Clear) Urine pH 5.5 (5.0-8.0) Ur Specific [place] 1.011 (1.001-1.035) Urine Protein Negative (Negative) Urine Glucose (UA) Negative (Negative) Urine Ketones Negative (Negative) Urine Blood Negative (Negative) Urine Nitrite Negative (Negative) Urine Bilirubin Negative (Negative) Urine Urobilinogen <2.0 (<2.0) mg/dL Ur Leukocyte Esterase Moderate H (Negative) Urine RBC <1 (0-5) /hpf Urine WBC 10 H (0-5) /hpf Ur Squamous Epith Cells 1 (0-4) /hpf Amorphous Sediment Rare H (None) /hpf Urine Bacteria Many H (None) /hpf Hyaline Casts 6 H (0-2) /lpf Urine Mucus Rare H (None) /hpf Urine Opiates Screen (NotDetected) Ur Oxycodone Screen (NotDetected) Urine Methadone Screen (NotDetected) Ur Barbiturates Screen (NotDetected) U Tricyclic Antidepress (NotDetected) Ur Phencyclidine Scrn (NotDetected) Ur Amphetamines Screen (NotDetected) U Methamphetamines Scrn (NotDetected) U Benzodiazepines Scrn (NotDetected) Urine Cocaine Screen (NotDetected) U Marijuana (THC) Screen (NotDetected) Serum Alcohol mg/dL 08/08/23 Range/Units 10:06 WBC (3.8-10.6) k/uL RBC (3.80-5.40) m/uL Hgb (11.4-16.0) gm/dL Hct (34.0-46.0) % MCV (80.0-100.0) fL MCH (25.0-35.0) pg MCHC (31.0-37.0) g/dL RDW (11.5-15.5) % Plt Count (150-450) k/uL MPV Neutrophils % % Lymphocytes % % Monocytes % % Eosinophils % % Basophils % % Neutrophils # (1.3-7.7) k/uL Lymphocytes # (1.0-4.8) k/uL Monocytes # (0-1.0) k/uL Eosinophils # (0-0.7) k/uL Basophils # (0-0.2) k/uL Hypochromasia Anisocytosis Macrocytosis PT 11.4 (10.0-12.5) sec INR 1.0 (<1.2) APTT 20.6 L (22.0-30.0) sec Sodium (137-145) mmol/L Potassium (3.5-5.1) mmol/L Chloride (98-107) mmol/L Carbon Dioxide (22-30) mmol/L Anion Gap mmol/L BUN (7-17) mg/dL Creatinine (0.52-1.04) mg/dL Est GFR (CKD-EPI)AfAm (>60 ml/min/1.73 sqM) Est GFR (CKD-EPI)NonAf (>60 ml/min/1.73 sqM) Glucose (74-99) mg/dL Plasma Lactic Acid [place] (0.7-2.0) mmol/L Calcium (8.4-10.2) mg/dL Magnesium (1.6-2.3) mg/dL Total Bilirubin (0.2-1.3) mg/dL AST (14-36) U/L ALT (4-34) U/L Alkaline Phosphatase (38-126) U/L Ammonia (<30) umol/L Troponin I (0.000-0.034) ng/mL Total Protein (6.3-8.2) g/dL Albumin (3.5-5.0) g/dL Urine Color Urine Appearance (Clear) Urine pH (5.0-8.0) Ur Specific [place] (1.001-1.035) Urine Protein (Negative) Urine Glucose (UA) (Negative) Urine Ketones (Negative) Urine Blood (Negative) Urine Nitrite (Negative) Urine Bilirubin (Negative) Urine Urobilinogen (<2.0) mg/dL Ur Leukocyte Esterase (Negative) Urine RBC (0-5) /hpf Urine WBC (0-5) /hpf Ur Squamous Epith Cells (0-4) /hpf Amorphous Sediment (None) /hpf Urine Bacteria (None) /hpf Hyaline Casts (0-2) /lpf Urine Mucus (None) /hpf Urine Opiates Screen (NotDetected) Ur Oxycodone Screen (NotDetected) Urine Methadone Screen (NotDetected) Ur Barbiturates Screen (NotDetected) U Tricyclic Antidepress (NotDetected) Ur Phencyclidine Scrn (NotDetected) Ur Amphetamines Screen (NotDetected) U Methamphetamines Scrn (NotDetected) U Benzodiazepines Scrn (NotDetected) Urine Cocaine Screen (NotDetected) U Marijuana (THC) Screen (NotDetected) Serum Alcohol mg/dL Disposition Clinical Impression: Generalized weakness, Urinary tract infection, Hepatic encephalopathy Disposition: ADMITTED IP TO THIS [facility] Time of Disposition: 11:35
[2023-08-08] MEDS: cefTRIAXone IN SWFI 1,000 MG/10 ML SYRINGE IVP STA (12:04)
[2023-08-08] MEDS: PANTOPRAZOLE 40 MG TABLET PO SCH (12:04)
[2023-08-08] MEDS: SODIUM CHLORIDE 0.9% 1,000 ML IV ONE (12:05)
[2023-08-08] MEDS: DEXTROSE 50% SYRINGE 50 ML IVP STA (12:17)
[2023-08-08] MEDS: INSULIN REGULAR 100 UNIT/ML VIAL (IV) IV ONE (12:27)
[2023-08-08] MEDS: KETOROLAC 15 MG/ML 1 ML VIAL IVP STA (13:58)
[2023-08-08 14:26] LABS: Glucose,Whole Blood 25 mg/dL (70-110)
[2023-08-08 14:33] LABS: Glucose,Whole Blood 146 mg/dL (70-110)
[2023-08-08 15:02] LABS: Glucose,Whole Blood 118 mg/dL (70-110)
[2023-08-08 15:06] LABS: Amphetamine Screen,Urine Not Detected (NotDetected); Barbiturate Screen,Urine Not Detected (NotDetected); Benzodiazepines Screen,Urine Not Detected (NotDetected); Cocaine Screen,Urine Not Detected (NotDetected); Methadone Screen, Urine Not Detected (NotDetected); Opiate Screen,Urine Not Detected (NotDetected); Oxycodone Screen, Urine Not Detected (NotDetected); Phencyclidine Screen,Urine Not Detected (NotDetected); Tricyclic Antidepressant,Urine Not Detected (NotDetected); Urn Cannabinoid Scrn Not Detected (NotDetected)
[2023-08-08] MEDS: NALOXONE 0.4 MG/ML 1 ML VIAL IVP STA (15:08)
[2023-08-08 15:46] LABS: Glucose,Whole Blood 110 mg/dL (70-110)
--- NOTE | 2023-08-08 16:30 | P.CNNES ---
History of Present Illness Consult date: 08/08/23 Requesting physician: Johanna Ventura Reason for Consult: ams History of Present Illness: This is a 68-year-old woman who presents to the emergency department for altered mental status. History is obtained from the patient's brother was at bedside. According to the patient's brother, patient is confused today more than normal. In he states that she has underlying history of cirrhosis from alcohol use, she has new kidney insufficiency. She had the an episode of atrial fibrillation about 6 weeks ago after a fall and that according to the brother she was started on anticoagulation and then was discontinued by cardiology since it was felt she does not needed that. She had a recent cardiac cath about 2 weeks ago and that she was told everything is okay per the brother. She has elevated ammonia on and off because of the cirrhosis and she has confusion but he states today her confusion was different. She does have history of TIA and she is on aspirin but has not been taking aspirin for about 3 daysas since she is pending to have endoscopy.patient does not have any history of seizures. No history of large strokes other than that TIAs. while in the ED the patient's sugar was 25 and they're she had a flexor posture of upper extremity but no jerk in of any extremities or no foaming around the mouth. She was given dextrose and per the nurse her confusion was improving but not a resolved. The brother feels her confusion and has improved after dextrose is well up. Ammonia was 173.upon reviewing prior ammonia levels this seems more elevated compared to the prior episodes. creatinine is 2.60 White blood cell is 5.3.patient is afebrile. Review of Systems The positive and negative as per HPI. 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(effects speech and balance), carotid artery disease, fluctuating blood pressure, enlarged heart/value issues, edema in joon legs, hx hiatal hernia, chronic venous insufficiency-"hard time healing" History of Any Multi-Drug Resistant Organisms: None Reported Date of last positivie culture/infection: 2011 MDRO Source:: stool Past Surgical History: Cholecystectomy, Heart Catheterization, Joint Replacement Additional Past Surgical History / Comment(s): SURGERY ON SPLEEN, left hip replacement, JONA Past Anesthesia/Blood Transfusion Reactions: Previous Problems w/ Anesthesia Additional Past Anesthesia/Blood Transfusion Reaction / Comment(s): "trouble waking her up" per brother Past Psychological History: Anxiety, Depression Smoking Status: Current every day smoker Past Alcohol Use History: None Reported Past Drug Use History: None Reported - Past Family History Mother Family Medical History: Cancer Additional Family Medical History / Comment(s): Breast cancer/lung cancer, enlarged heart. Father Family Medical History: Cancer, Deep Vein Thrombosis (DVT) Medications and Allergies Home Medications Medication Instructions Recorded Confirmed Type Aspirin EC [Ecotrin Low Dose] 81 mg PO DAILY 02/08/19 08/08/23 History Ferrous Sulfate [Iron (65 MG 325 mg PO DAILY 07/10/23 08/08/23 History Elemental)] Lactulose [Cephulac] 30 gm PO TID 07/10/23 08/08/23 History Melatonin 5 mg PO HS 07/10/23 08/08/23 History Omeprazole 20 mg PO DAILY 07/10/23 08/08/23 History Rifaximin [Xifaxan] 550 mg PO BID 07/10/23 08/08/23 History Vitamin E (Dl,Tocopheryl Acet) 400 unit PO DAILY 07/10/23 08/08/23 History [Vitamin E (400 Iu = 180 mg)] traZODone HCL [Desyrel] 50 mg PO HS 07/10/23 08/08/23 History FLUoxetine HCL 40 mg PO DAILY 07/15/23 08/08/23 History Bumetanide [BUMEX] 0.5 mg PO DAILY 90 Days #90 tab 07/24/23 08/08/23 Rx Spironolactone [Aldactone] 25 mg PO BID 90 Days #180 tab 07/24/23 08/08/23 Rx Cholecalciferol [Vitamin D3 (125 125 mcg PO DAILY 08/08/23 08/08/23 History Mcg = 5000 Iu)] Vit C/E/Zn/Coppr/Lutein/Zeaxan 1 cap PO BID 08/08/23 08/08/23 History [Preservision Areds 2 Softgel] Allergies Allergy/AdvReac Type Severity Reaction Status Date / Time No Known Allergies Allergy Verified 08/08/23 10:15 Physical Examination - Vital Signs Vital Signs: Vital Signs Temp Pulse Resp BP Pulse Ox 08/08/23 15:08 18 08/08/23 14:45 62 18 124/62 100 08/08/23 14:24 76 18 161/79 96 08/08/23 13:00 75 18 143/83 95 08/08/23 12:00 54 L 18 143/83 97 08/08/23 11:00 54 L 18 127/60 99 08/08/23 10:44 47 L 18 160/67 98 08/08/23 09:23 60 18 154/72 100 08/08/23 08:48 98.0 F 63 18 111/72 99 Intake and Output 08/08/23 08/08/23 08/08/23 06:59 14:59 22:59 Other: Weight 53.977 kg General: Lying in bed and does not appear in acute distress. Neuro: Limited because overall condition. The patient is drowsy but is awakeable to voice. Is oriented to self and time. Is able to identify pen but did not identify watch. She is following simple commands. Language is limited. Pupils are round, equal and reactive to light. Pupils are 3mm bilaterally. Visual reynolds are full to confrontation. Is looking to right and left and will limitatin no nystagmus. No facial weakness. No dysarthria. Motor: Hard to assess because of cooperation. But lifting arms above gravity and wiggling toes. Did not fully cooperate for strength exam. No posturing noted and patient was shivering upon having blanket taking off. Reflex: 1+ throughout. Plantars are mute bilaterally. Results - Laboratory Findings CBC and BMP: 08/08/23 09:18 08/08/23 09:18 Abnormal Lab Findings: Abnormal Labs 08/08/23 08/08/23 08/08/23 09:15 09:18 09:18 RBC 3.58 L Hgb 11.1 L MCV 104.8 H MCHC 29.5 L RDW 17.2 H APTT Potassium 5.5 H Chloride 120 H Carbon Dioxide 16 L BUN 39 H Creatinine 2.60 H Glucose 113 H POC Glucose (mg/dL) Magnesium 2.6 H Alkaline Phosphatase 155 H Ammonia Total Protein 6.0 L Albumin 3.0 L Ur Leukocyte Esterase Urine WBC Amorphous Sediment Urine Bacteria Hyaline Casts Urine Mucus Urine Opiates Screen Detected H 08/08/23 08/08/23 08/08/23 09:18 09:18 10:06 RBC Hgb MCV MCHC RDW APTT 20.6 L Potassium Chloride Carbon Dioxide BUN Creatinine Glucose POC Glucose (mg/dL) Magnesium Alkaline Phosphatase Ammonia 182 H Total Protein Albumin Ur Leukocyte Esterase Moderate H Urine WBC 10 H Amorphous Sediment Rare H Urine Bacteria Many H Hyaline Casts 6 H Urine Mucus Rare H Urine Opiates Screen 08/08/23 08/08/23 08/08/23 14:09 14:14 14:31 RBC Hgb MCV MCHC RDW APTT Potassium Chloride Carbon Dioxide BUN Creatinine Glucose POC Glucose (mg/dL) 25 L 146 H Magnesium Alkaline Phosphatase Ammonia 173 H Total Protein Albumin Ur Leukocyte Esterase Urine WBC Amorphous Sediment Urine Bacteria Hyaline Casts Urine Mucus Urine Opiates Screen 08/08/23 14:53 RBC Hgb MCV MCHC RDW APTT Potassium Chloride Carbon Dioxide BUN Creatinine Glucose POC Glucose (mg/dL) 118 H Magnesium Alkaline Phosphatase Ammonia Total Protein Albumin Ur Leukocyte Esterase Urine WBC Amorphous Sediment Urine Bacteria Hyaline Casts Urine Mucus Urine Opiates Screen Assessment and Plan Assessment: this is a 68-year-old woman with history of cirrhosis from alcohol use, recent elevated the kidney insufficiency, creatinine presented emergency department because of confusion. While in the ED she had a glucose of 25 which she had clinically posturing when her sugar was that low and was severely confused. After receiving dextrose no further posturing in her confusion is improving. Also had elevated ammonia and CATIE. Encephalopathy due to multifactorial metabolic (hypoglycemia), hepatic encephalopathy with elevated ammonia and CATIE. also patient has possible underlying UTI Hypoglycemia as low as 25---resolved Elevated ammonia with history of cirrhosis from alcohol use Acute on CKI possible acute UTI History of TIA History of ?A-fib per family member then was told she did not need anticoagulation by cardiology team per family member Tobacco use--cutting down History of significant alcohol use Plan: I ordered a CT of the head I ordered EEG I ordered TSH. Vitamin B12 and folate is ordered by primary team. cardiac monitoring seems the patient had questionable A. fib about 6 weeks ago. She was told by cardiology that she does not need to be on anticoagulation per brother. I will defer management to primary and cardiology team. patient is on aspirin 81 mg daily. Please avoid any further hypoglycemic events. We'll defer the rest of the medical management to primary team. The plan is discussed with patient's brother who is at bedside and her nurse. Thank you for the consultation. Time with Patient: Greater than 30
[2023-08-08 16:41] LABS: Glucose,Whole Blood 105 mg/dL (70-110)
--- NOTE | 2023-08-08 17:46 | CT ---
EXAMINATION TYPE: CT brain wo con CT DLP: 1089.4 mGycm, Automated exposure control for dose reduction was used. DATE OF EXAM: 08/08/2023 5:31 PM COMPARISON: 07/18/2023. CLINICAL INDICATION:Female, 68 years old with history of confusion, confusion TECHNIQUE: Brain: Axial CT images of the brain were obtained with coronal and sagittal reformats created and rev iewed. Contrast used: None. Oral contrast used: None. FINDINGS: Brain: Extra-axial spaces: No abnormal extra-axial fluid collections. Ventricular system: Dilatation in proportion to cerebral atrophy. Cerebral parenchyma: Cerebral atrophy. No acute intraparenchymal hemorrhage or mass effect. The powers -white junction is well differentiated. Scattered hypoattenuating areas are seen within the white mat ter. Cerebellum: Insufflation of the right cerebrum hemisphere and thickened of the sulci Mass effect: No evidence of midline shift. Intracranial vasculature: Atherosclerotic calcifications of the intracranial vessels. Soft tissues: Normal. Calvarium/osseous structures: No depressed skull fracture. Paranasal sinuses and mastoid air cells: Mild scattered paranasal sinus disease. Visualized orbits: Bilateral aphakia IMPRESSION: 1. No acute intracranial process. 2. Remote injury to the right cerebral hemisphere. And second sulci of the left unchanged from prior .
[2023-08-08] MEDS: LACTULOSE 20 GM/30 ML CUP PO SCH (17:47)
[2023-08-08 19:01] LABS: T4, Free (Free Thyroxine) 1.23 ng/dL (0.78-2.19)
[2023-08-08 21:02] LABS: Glucose,Whole Blood 130 mg/dL (70-110)
--- NOTE | 2023-08-08 21:57 | EEG ---
ELECTROENCEPHALOGRAM REPORT CLINICAL HISTORY: This is a 68-year-old woman with altered mental status and . The video EEG is obtained to evaluate for seizure epileptiform activity. RELEVANT MEDICATION: The patient is not on any antiepileptic drugs. EEG TYPE: A routine 21-channel EEG with video using the 10/20 electrode placement system. DESCRIPTION: Background consisted of [id number] voltage of 4-5 hertz activity. There was no physiological stage 2 sleep architecture. There is no focal slowing. There is moderate amount of myogenic artifact over the right temporal left central temporal region. Interictal and ictal is none. ACTIVATION PROCEDURE: Photic stimulation, hyperventilation is not performed. CLINICAL INTERPRETATION: This is an abnormal routine EEG. The background slowing is suggestive of moderate-to- severe encephalopathy. Otherwise, there is no focal slowing, epileptiform discharges or seizure on the EEG. Clinical correlation is recommended. GERONIMO / JOVON: [id number] /
[2023-08-08] MEDS: MELATONIN 5 MG TABLET PO SCH (22:16)
[2023-08-08] MEDS: traZODone HCL 50 MG TAB PO SCH (22:16)
[2023-08-08] MEDS: RIFAXIMIN 550 MG TABLET PO SCH (22:16)
--- NOTE | 2023-08-08 22:46 | P.HPIM ---
History of Present Illness H&P Date: 08/08/23 Chief Complaint: Weakness Patient is a 68-year-old female with a known history of alcoholic liver cirrhosis, atrial fibrillation, COPD, hypertension, memory impairment, CKD stage IIIb and chronic left lower extremity wound, anxiety/depression currently everyday smoker was brought to the hospital due to complaints of generalized weakness, dizziness for the past 2 to 3 days. Patient was also having nausea. States that she had abdominal pain yesterday. No diarrhea. Patient is also having difficulty walking and feels completely fatigued and weak. Denies any complaints of chest pain or shortness of breath. No cough or sputum production. No fever no chills. There is also concern regarding her medications mixed up and she may have taken double dose of trazodone or other medications. Patient is not sure. Patient is poor historian otherwise. Most of the history was taken from her brother at bedside. Patient was found to be hyperkalemic and was given insulin/D50 patient became hypoglycemic with blood sugar went down to 25. Due to altered mental status and elevated ammonia level neurology was consulted as well. Chest x-ray showed no evidence for acute pulmonary process. EKG showed sinus bradycardia. Laboratory data showed WBC 5.3 hemoglobin 11.1 and platelets 233, MCV 17.2 APTT 20.6 Sodium 144 potassium 5.5 chloride 120 bicarb is 16 BUN 39 and creatinine 2.6 Blood sugar 113 Magnesium 2.6 alk phos 155 ammonia 182 TSH 6.32 and free T4 level 1.23 within normal limits. Albumin 3.0 urinalysis showed moderate leukocyte esterase with WBCs 10 and squamous epithelial cells 1 UDS was positive for opiates. Patient is currently not on any opiate medications and repeat UDS was ordered as per family request. 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(effects speech and balance), carotid artery disease, fluctuating blood pressure, enlarged heart/value issues, edema in joon legs, hx hiatal hernia, chronic venous insufficiency-"hard time healing" History of Any Multi-Drug Resistant Organisms: None Reported Date of last positivie culture/infection: 2011 MDRO Source:: stool Past Surgical History: Cholecystectomy, Heart Catheterization, Joint Replacement Additional Past Surgical History / Comment(s): SURGERY ON SPLEEN, left hip replacement, JONA Past Anesthesia/Blood Transfusion Reactions: Previous Problems w/ Anesthesia Additional Past Anesthesia/Blood Transfusion Reaction / Comment(s): "trouble waking her up" per brother Past Psychological History: Anxiety, Depression Smoking Status: Current every day smoker Past Alcohol Use History: None Reported Past Drug Use History: None Reported - Past Family History Mother Family Medical History: Cancer Additional Family Medical History / Comment(s): Breast cancer/lung cancer, enlarged heart. Father Family Medical History: Cancer, Deep Vein Thrombosis (DVT) Medications and Allergies Home Medications Medication Instructions Recorded Confirmed Type Aspirin EC [Ecotrin Low Dose] 81 mg PO DAILY 02/08/19 08/08/23 History Ferrous Sulfate [Iron (65 MG 325 mg PO DAILY 07/10/23 08/08/23 History Elemental)] Lactulose [Cephulac] 30 gm PO TID 07/10/23 08/08/23 History Melatonin 5 mg PO HS 07/10/23 08/08/23 History Omeprazole 20 mg PO DAILY 07/10/23 08/08/23 History Rifaximin [Xifaxan] 550 mg PO BID 07/10/23 08/08/23 History Vitamin E (Dl,Tocopheryl Acet) 400 unit PO DAILY 07/10/23 08/08/23 History [Vitamin E (400 Iu = 180 mg)] traZODone HCL [Desyrel] 50 mg PO HS 07/10/23 08/08/23 History FLUoxetine HCL 40 mg PO DAILY 07/15/23 08/08/23 History Bumetanide [BUMEX] 0.5 mg PO DAILY 90 Days #90 tab 07/24/23 08/08/23 Rx Spironolactone [Aldactone] 25 mg PO BID 90 Days #180 tab 07/24/23 08/08/23 Rx Cholecalciferol [Vitamin D3 (125 125 mcg PO DAILY 08/08/23 08/08/23 History Mcg = 5000 Iu)] Vit C/E/Zn/Coppr/Lutein/Zeaxan 1 cap PO BID 08/08/23 08/08/23 History [Preservision Areds 2 Softgel] Allergies Allergy/AdvReac Type Severity Reaction Status Date / Time No Known Allergies Allergy Verified 08/08/23 10:15 Physical Exam Vitals: Vital Signs Temp Pulse Resp BP Pulse Ox 08/08/23 12:00 54 L 18 143/83 97 08/08/23 11:00 54 L 18 127/60 99 08/08/23 10:44 47 L 18 160/67 98 08/08/23 09:23 60 18 154/72 100 08/08/23 08:48 98.0 F 63 18 111/72 99 Intake and Output 08/07/23 08/08/23 08/08/23 22:59 06:59 14:59 Other: Weight 53.977 kg PHYSICAL EXAMINATION: Patient is lying in the bed comfortably, no acute distress, awake alert and oriented x 2. Lethargic and drowsy and weak.. HEENT: Normocephalic. Neck is supple. Pupils reactive. Nostrils clear. Oral cavity is moist. Neck reveals no JVD, carotid bruits, or thyromegaly. CHEST EXAMINATION: Trachea is central. Symmetrical expansion. Bibasilar diminis hed sounds otherwise lung reynolds clear to auscultation and percussion. CARDIAC: Normal S1, S2 with no gallops. No murmurs ABDOMEN: Soft. Bowel sounds normal. No organomegaly. No abdominal bruits. Extremities: reveal no edema. No clubbing or cyanosis Neurologically awake, alert, oriented x 2 patient is able to move her extremities.. No gross focal deficits noted Skin: No rash or skin lesions. Left lower extremity skin ulcer bandaged. Psychiatric: Coperative. Nonsuicidal Musculoskeletal: No joint swelling or deformity. Normal range of motion. Results CBC & Chem 7: 08/08/23 09:18 08/08/23 09:18 Labs: Abnormal Lab Results - Last 24 Hours (Table) 08/08/23 08/08/23 08/08/23 Range/Units 09:15 09:18 09:18 RBC 3.58 L (3.80-5.40) m/uL Hgb 11.1 L (11.4-16.0) gm/dL MCV 104.8 H (80.0-100.0) fL MCHC 29.5 L (31.0-37.0) g/dL RDW 17.2 H (11.5-15.5) % APTT (22.0-30.0) sec Potassium 5.5 H (3.5-5.1) mmol/L Chloride 120 H (98-107) mmol/L Carbon Dioxide 16 L (22-30) mmol/L BUN 39 H (7-17) mg/dL Creatinine 2.60 H (0.52-1.04) mg/dL Glucose 113 H (74-99) mg/dL Magnesium 2.6 H (1.6-2.3) mg/dL Alkaline Phosphatase 155 H (38-126) U/L Ammonia (<30) umol/L Total Protein 6.0 L (6.3-8.2) g/dL Albumin 3.0 L (3.5-5.0) g/dL Ur Leukocyte Esterase (Negative) Urine WBC (0-5) /hpf Amorphous Sediment (None) /hpf Urine Bacteria (None) /hpf Hyaline Casts (0-2) /lpf Urine Mucus (None) /hpf Urine Opiates Screen Detected H (NotDetected) 08/08/23 08/08/23 08/08/23 Range/Units 09:18 09:18 10:06 RBC (3.80-5.40) m/uL Hgb (11.4-16.0) gm/dL MCV (80.0-100.0) fL MCHC (31.0-37.0) g/dL RDW (11.5-15.5) % APTT 20.6 L (22.0-30.0) sec Potassium (3.5-5.1) mmol/L Chloride (98-107) mmol/L Carbon Dioxide (22-30) mmol/L BUN (7-17) mg/dL Creatinine (0.52-1.04) mg/dL Glucose (74-99) mg/dL Magnesium (1.6-2.3) mg/dL Alkaline Phosphatase (38-126) U/L Ammonia 182 H (<30) umol/L Total Protein (6.3-8.2) g/dL Albumin (3.5-5.0) g/dL Ur Leukocyte Esterase Moderate H (Negative) Urine WBC 10 H (0-5) /hpf Amorphous Sediment Rare H (None) /hpf Urine Bacteria Many H (None) /hpf Hyaline Casts 6 H (0-2) /lpf Urine Mucus Rare H (None) /hpf Urine Opiates Screen (NotDetected) Thrombosis Risk Factor Assmnt - DVT/VTE Prophylaxis DVT/VTE Prophylaxis: Pharmacologic Prophylaxis ordered Assessment and Plan Assessment: Acute metabolic encephalopathy due to hypoglycemia and elevated ammonia level al serge with possible UTI. Hepatic encephalopathy with underlying alcoholic liver cirrhosis Generalized weakness likely due to volume depletion Mild hyperkalemia due to recently started spironolactone and acute kidney injury Acute on chronic kidney stage IIIb with baseline creatinine around 1.4-2. Crea tinine 2.6 on admission Non-anion gap metabolic acidosis secondary to acute kidney injury Prior history of alcohol abuse Recent admission with elevated troponin level status post cardiac catheterizati on on 07/18/2023. No obstructive CAD noted. Questionable history of atrial fibrillation. Patient is currently in sinus rhythm. Not on anticoagulation as recommended by cardiology. Due to elevated I NR level Microcytic anemia and anemia of chronic disease with evidence of iron deficiency previously. Chronic left lower extremity ulcer continue with wound care Anxiety/depression COPD not in exacerbation Ongoing nicotine addiction Plan: Patient will be continued on gentle IV hydration. Continue with lactulose and follow ammonia level. Follow repeat potassium level. Patient was given dose of insulin IV regular/D50. Due to altered mental status CT head was ordered. Neurology was consulted. Was started on antibiotics ceftriaxone. Follow-up urine culture report. Spironolactone is on hold due to hyperkalemia Continue with rifaximin and Bumex and follow-up fluid status closely. PT OT consult Discussed with the patient and her brother at bedside in detail. Prognosis is guarded. Time with Patient: Greater than 30
[2023-08-09 05:53] LABS: Glucose,Whole Blood 91 mg/dL (70-110)
[2023-08-09 09:22] LABS: Anisocytosis Slight; HCT 36.9 % (34.0-46.0); HGB 10.6 gm/dL (11.4-16.0); Hypochromasia Marked; MCH 31.3 pg (25.0-35.0); MCHC 28.7 g/dL (31.0-37.0); Macrocytosis Marked; Mean Platelet Volume 9.3; Platelet Count 217 k/uL (150-450); RBC 3.38 m/uL (3.80-5.40); RDW 17.4 % (11.5-15.5); WBC 7.3 k/uL (3.8-10.6)
[2023-08-09] MEDS: FLUoxetine HCL 20 MG CAP PO SCH (09:29)
[2023-08-09] MEDS: ASPIRIN 81 MG PO SCH (09:29)
[2023-08-09 09:39] LABS: African American GFR (CKD) 22 (>60 ml/min/1.73 sqM); Anion Gap 9 mmol/L; Blood Urea Nitrogen 36 mg/dL (7-17); Calcium 9.1 mg/dL (8.4-10.2); Carbon Dioxide 13 mmol/L (22-30); Chloride 124 mmol/L (98-107); Glucose 199 mg/dL (74-99); Non-African American GFR(CKD) 19 (>60 ml/min/1.73 sqM); Potassium 4.4 mmol/L (3.5-5.1); Sodium 146 mmol/L (137-145)
[2023-08-09 10:33] LABS: Anisocytosis (M) Present; Eosinophils # (M) 0.37 k/uL (0-0.7); Lymphocytes # (M) 1.97 k/uL (1.0-4.8); Monocytes # (M) 0.15 k/uL (0-1.0); Neutrophils # (M) 4.82 k/uL (1.3-7.7); Neutrophils % (M) 66 %; Nucleated Red Blood Cells 0 /100 WBC (0-0); Total Cells Counted 100
[2023-08-09 10:34] LABS: Crenated RBC Present; Hypochromasia (M) Present; RBC Fragments Present; Target Cells Present
[2023-08-09 11:11] LABS: Glucose,Whole Blood 165 mg/dL (70-110)
[2023-08-09 11:59] VITALS: BMI 18.6
--- NOTE | 2023-08-09 12:25 | P.PN ---
Subjective Progress Note Date: 08/09/23 Patient initially seen by Dr. Guicho De La Torre yesterday. Please refer to his note for details. Patient came with confusion. She was found to have hypoglycemia with blood sugar of 25, also had elevated ammonia. Also had elevated creatinine and possible UTI. EEG was negative for seizures. Her mentation improved slightly with dextrose. Patient is reclining comfortably in the bed, having her lunch. Patient states she feels "a lot better". She denies any headache. Offers no new complaints. Objective - Vital Signs Vital signs: Vital Signs Temp 97.7 F 08/09/23 09:40 Pulse 68 08/09/23 11:19 Resp 15 08/09/23 11:19 BP 130/52 08/09/23 11:19 Pulse Ox 100 08/09/23 11:19 FiO2 Intake & Output 08/08/23 08/09/23 08/09/23 18:59 06:59 18:59 Intake Total 540 110 Balance 540 110 Weight 53.977 kg 53.977 kg 53.977 kg Intake: Oral 540 110 Other: Voiding Method Bedside Commode Bedside Commode # Voids 0 1 # Bowel Movements 1 1 - Exam Patient's mental status, speech and language functions are normal. Patient knows it is July 2023 and that she is in [facility] imported on [place] and name of the current president. Speech and language functions are normal. Latency time to answer questions is fairly normal. Face is symmetric. Visual reynolds are full. Tongue protrudes to midline. On muscle send testing there is no pronator drift. No ataxia for [id number] testing. - Labs CBC & Chem 7: 08/09/23 08:51 08/09/23 08:51 Labs: Abnormal Lab Results - Last 24 Hours (Table) 08/08/23 08/08/23 08/08/23 Range/Units 09:18 14:09 14:14 RBC (3.80-5.40) m/uL Hgb (11.4-16.0) gm/dL MCV (80.0-100.0) fL MCHC (31.0-37.0) g/dL RDW (11.5-15.5) % Macrocytosis Sodium (137-145) mmol/L Chloride (98-107) mmol/L Carbon Dioxide (22-30) mmol/L BUN (7-17) mg/dL Creatinine (0.52-1.04) mg/dL Glucose (74-99) mg/dL POC Glucose (mg/dL) 25 L (70-110) mg/dL Ammonia 173 H (<30) umol/L TSH 6.320 H (0.465-4.680) mIU/L 08/08/23 08/08/23 08/08/23 Range/Units 14:31 14:53 21:01 RBC (3.80-5.40) m/uL Hgb (11.4-16.0) gm/dL MCV (80.0-100.0) fL MCHC (31.0-37.0) g/dL RDW (11.5-15.5) % Macrocytosis Sodium (137-145) mmol/L Chloride (98-107) mmol/L Carbon Dioxide (22-30) mmol/L BUN (7-17) mg/dL Creatinine (0.52-1.04) mg/dL Glucose (74-99) mg/dL POC Glucose (mg/dL) 146 H 118 H 130 H (70-110) mg/dL Ammonia (<30) umol/L TSH (0.465-4.680) mIU/L 08/09/23 08/09/23 08/09/23 Range/Units 08:51 08:51 11:10 RBC 3.38 L (3.80-5.40) m/uL Hgb 10.6 L (11.4-16.0) gm/dL MCV 109.0 H (80.0-100.0) fL MCHC 28.7 L (31.0-37.0) g/dL RDW 17.4 H (11.5-15.5) % Macrocytosis Marked A Sodium 146 H (137-145) mmol/L Chloride 124 H (98-107) mmol/L Carbon Dioxide 13 L (22-30) mmol/L BUN 36 H (7-17) mg/dL Creatinine 2.53 H (0.52-1.04) mg/dL Glucose 199 H (74-99) mg/dL POC Glucose (mg/dL) 165 H (70-110) mg/dL Ammonia (<30) umol/L TSH (0.465-4.680) mIU/L Assessment and Plan Assessment: This is a 68-year-old woman with history of cirrhosis from alcohol use, renal insufficiency, presented emergency department because of confusion. While in the ED she had a glucose of 25 during which she had clinically posturing when her sugar was that low and was severely confused. After receiving dextrose no further posturing, and her confusion is improving. Also had elevated ammonia 182 on admission, and CATIE. Encephalopathy due to multifactorial metabolic (hypoglycemia), hepatic encephalopathy with elevated ammonia and CATIE. also patient has possible underlying UTI Hypoglycemia as low as 25---resolved Elevated ammonia with history of cirrhosis from alcohol use Acute on CKI possible acute UTI History of TIA History of ?A-fib per family member then was told she did not need anticoagulation by cardiology team per family member Tobacco use--cutting down History of significant alcohol use Plan: CT of the head revealed no acute intracranial process. Remote injury to the right cerebral hemisphere and second sulci of the left unchanged from prior. I personally reviewed CT head, and appears that evidence of old injury involves cerebellar hemisphere, right more than left. EEG shows background slowing suggestive of moderate to severe encephalopathy. No epileptiform activity was seen. TSH 6.32, with normal free T4 of 1.23. We will defer to IM for abnormal thyroid functions. Vitamin B12 and folate pending. cardiac monitoring seems the patient had questionable A. fib about 6 weeks ago. She was told by cardiology that she does not need to be on anticoagulation per brother. I will defer management to primary and cardiology team. patient is on aspirin 81 mg daily. Ammonia on admission was 182, but now down to 173. Please avoid any further hypoglycemic events. We'll defer the rest of the medical management to primary team.
[2023-08-09 16:23] LABS: Glucose,Whole Blood 138 mg/dL (70-110)
[2023-08-09 19:52] LABS: Glucose,Whole Blood 90 mg/dL (70-110)
[2023-08-10 06:19] LABS: Glucose,Whole Blood 89 mg/dL (70-110)
[2023-08-10 08:22] LABS: Anisocytosis Slight; HCT 38.1 % (34.0-46.0); Hypochromasia Marked; MCH 31.8 pg (25.0-35.0); MCHC 28.8 g/dL (31.0-37.0); MCV 110.5 fL (80.0-100.0); Macrocytosis Marked; Mean Platelet Volume 9.4; Platelet Count 250 k/uL (150-450); RBC 3.45 m/uL (3.80-5.40); RDW 17.2 % (11.5-15.5); WBC 6.8 k/uL (3.8-10.6)
[2023-08-10] MEDS: BUMETANIDE 0.5 MG TABLET PO SCH (08:38)
[2023-08-10 09:05] LABS: African American GFR (CKD) 22 (>60 ml/min/1.73 sqM); Anion Gap 4 mmol/L; Blood Urea Nitrogen 30 mg/dL (7-17); Calcium 9.3 mg/dL (8.4-10.2); Carbon Dioxide 14 mmol/L (22-30); Chloride 124 mmol/L (98-107); Glucose 133 mg/dL (74-99); Non-African American GFR(CKD) 19 (>60 ml/min/1.73 sqM); Sodium 142 mmol/L (137-145)
[2023-08-10 09:10] LABS: Eosinophils # (M) 0.41 k/uL (0-0.7); Lymphocytes # (M) 2.79 k/uL (1.0-4.8); Monocytes # (M) 0.27 k/uL (0-1.0); Neutrophils # (M) 3.33 k/uL (1.3-7.7); Neutrophils % (M) 49 %; Nucleated Red Blood Cells 0 /100 WBC (0-0); Total Cells Counted 100
[2023-08-10 09:11] LABS: Anisocytosis (M) Present; Hypochromasia (M) Present
[2023-08-10 09:16] LABS: Crenated RBC Present; RBC Fragments Present; Target Cells Present
[2023-08-10 09:17] LABS: Poikilocytosis (M) Present
[2023-08-10 11:18] LABS: Glucose,Whole Blood 122 mg/dL (70-110)
[2023-08-10] MEDS: traMADol 50 MG TAB PO PRN (14:36)
[2023-08-10 16:12] LABS: Glucose,Whole Blood 113 mg/dL (70-110)
[2023-08-10 20:04] LABS: Glucose,Whole Blood 100 mg/dL (70-110)
[2023-08-11 06:01] LABS: Glucose,Whole Blood 104 mg/dL (70-110)
--- NOTE | 2023-08-11 09:36 | P.PN ---
Subjective Progress Note Date: 08/09/23 Patient is a 68-year-old female with a known history of alcoholic liver cirrhosis, atrial fibrillation, COPD, hypertension, memory impairment, CKD stage IIIb and chronic left lower extremity wound, anxiety/depression currently everyday smoker was brought to the hospital due to complaints of generalized w eakness, dizziness for the past 2 to 3 days. Patient was also having nausea. States that she had abdominal pain yesterday. No diarrhea. Patient is also having difficulty walking and feels completely fatigued and weak. Denies any complaints of chest pain or shortness of breath. No cough or sputum production. No fever no chills. There is also concern regarding her medications mixed up and she may have taken double dose of trazodone or other medications. Patient is not sure. Patient is poor historian otherwise. Most of the history was taken from her brother at bedside. Patient was found to be hyperkalemic and was given insulin/D50 patient became hypoglycemic with blood sugar went down to 25. Due to altered mental status and elevated ammonia level neurology was consulted as well. Chest x-ray showed no evidence for acute pulmonary process. EKG showed sinus bradycardia. Laboratory data showed WBC 5.3 hemoglobin 11.1 and platelets 233, MCV 17.2 APTT 20.6 Sodium 144 potassium 5.5 chloride 120 bicarb is 16 BUN 39 and creatinine 2.6 Blood sugar 113 Magnesium 2.6 alk phos 155 ammonia 182 TSH 6.32 and free T4 level 1.23 within normal limits. Albumin 3.0 urinalysis showed moderate leukocyte esterase with WBCs 10 and squamous epithelial cells 1 UDS was positive for opiates. Patient is currently not on any opiate medications and repeat UDS was ordered as per family request. 08/09/2023 Patient is resting in bed. Awake alert and oriented. Mentation is better today. Still lethargic and drowsy. No complaints of chest pain or shortness of breath. No nausea vomiting or abdominal pain. Was able to tolerate oral diet slowly. IV fluids will be on hold. Otherwise patient is being continued on ceftriaxone antibiotics and also on tramadol for pain control. Bumex will be restarted. Spironolactone is on hold due to hyperkalemia. Hyperkalemia has resolved now. Laboratory data showed WBC 7.3 hemoglobin 10.6 and platelets 217 Sodium 146 potassium 4.4 chloride 124 bicarb is 13 BUN 36 and creatinine 2.53 and blood sugar 199. B12 level 754. Current medications reviewed. Objective - Vital Signs Vital signs: Vital Signs Temp 97.7 F 08/09/23 09:40 Pulse 68 08/09/23 11:19 Resp 15 08/09/23 11:19 BP 130/52 08/09/23 11:19 Pulse Ox 100 08/09/23 11:19 FiO2 Intake & Output 08/08/23 08/09/23 08/09/23 18:59 06:59 18:59 Intake Total 540 220 Balance 540 220 Weight 53.977 kg 53.977 kg 53.977 kg Intake: Oral 540 220 Other: Voiding Method Bedside Commode Bedside Commode # Voids 0 1 # Bowel Movements 1 1 - Exam PHYSICAL EXAMINATION: Patient is lying in the bed comfortably, no acute distress, awake alert and oriented x 2-3. Lethargic and drowsy and weak.. HEENT: Normocephalic. Neck is supple. Pupils reactive. Nostrils clear. Oral cavity is moist. Neck reveals no JVD, carotid bruits, or thyromegaly. CHEST EXAMINATION: Trachea is central. Symmetrical expansion. Bibasilar diminished sounds otherwise lung reynolds clear to auscultation and percussion. CARDIAC: Normal S1, S2 with no gallops. No murmurs ABDOMEN: Soft. Bowel sounds normal. No organomegaly. No abdominal bruits. Extremities: reveal no edema. No clubbing or cyanosis Neurologically awake, alert, oriented x 2-3 patient is able to move her extremities.. No gross focal deficits noted Skin: No rash or skin lesions. Left lower extremity skin ulcer bandaged. Psychiatric: Coperative. Nonsuicidal Musculoskeletal: No joint swelling or deformity. Normal range of motion. - Labs CBC & Chem 7: 08/10/23 08:09 08/10/23 08:09 Labs: Abnormal Lab Results - Last 24 Hours (Table) 08/08/23 08/08/23 08/08/23 Range/Units 09:18 14:09 14:14 RBC (3.80-5.40) m/uL Hgb (11.4-16.0) gm/dL MCV (80.0-100.0) fL MCHC (31.0-37.0) g/dL RDW (11.5-15.5) % Macrocytosis Sodium (137-145) mmol/L Chloride (98-107) mmol/L Carbon Dioxide (22-30) mmol/L BUN (7-17) mg/dL Creatinine (0.52-1.04) mg/dL Glucose (74-99) mg/dL POC Glucose (mg/dL) 25 L (70-110) mg/dL Ammonia 173 H (<30) umol/L TSH 6.320 H (0.465-4.680) mIU/L 08/08/23 08/08/23 08/08/23 Range/Units 14:31 14:53 21:01 RBC (3.80-5.40) m/uL Hgb (11.4-16.0) gm/dL MCV (80.0-100.0) fL MCHC (31.0-37.0) g/dL RDW (11.5-15.5) % Macrocytosis Sodium (137-145) mmol/L Chloride (98-107) mmol/L Carbon Dioxide (22-30) mmol/L BUN (7-17) mg/dL Creatinine (0.52-1.04) mg/dL Glucose (74-99) mg/dL POC Glucose (mg/dL) 146 H 118 H 130 H (70-110) mg/dL Ammonia (<30) umol/L TSH (0.465-4.680) mIU/L 08/09/23 08/09/23 08/09/23 Range/Units 08:51 08:51 11:10 RBC 3.38 L (3.80-5.40) m/uL Hgb 10.6 L (11.4-16.0) gm/dL MCV 109.0 H (80.0-100.0) fL MCHC 28.7 L (31.0-37.0) g/dL RDW 17.4 H (11.5-15.5) % Macrocytosis Marked A Sodium 146 H (137-145) mmol/L Chloride 124 H (98-107) mmol/L Carbon Dioxide 13 L (22-30) mmol/L BUN 36 H (7-17) mg/dL Creatinine 2.53 H (0.52-1.04) mg/dL Glucose 199 H (74-99) mg/dL POC Glucose (mg/dL) 165 H (70-110) mg/dL Ammonia (<30) umol/L TSH (0.465-4.680) mIU/L Assessment and Plan Assessment: Acute metabolic encephalopathy due to hypoglycemia and elevated ammonia level along with possible UTI. Improving. Hepatic encephalopathy with underlying alcoholic liver cirrhosis Generalized weakness likely due to volume depletion Mild hyperkalemia due to recently started spironolactone and acute kidney injury Acute on chronic kidney stage IIIb with baseline creatinine around 1.4-2. Creatinine 2.6 on admission Non-anion gap metabolic acidosis secondary to acute kidney injury Prior history of alcohol abuse Recent admission with elevated troponin level status post cardiac catheterization on 07/18/2023. No obstructive CAD noted. Questionable history of atrial fibrillation. Patient is currently in sinus rhythm. Not on anticoagulation as recommended by cardiology. Due to elevated INR level Microcytic anemia and anemia of chronic disease with evidence of iron deficiency previously. Chronic left lower extremity ulcer continue with wound care Anxiety/depression COPD not in exacerbation Ongoing nicotine addiction Plan: Patient is tolerating oral diet. IV fluids on hold.. Continue with lactulose and follow ammonia level which is still elevated. Potassium level normalized otherwise.. Due to altered mental status CT head was ordered. Neurology has seen the patient. Patient underwent neurological workup including CT head and EEG which showed background slowing suggestive of moderate to severe encephalopathy. No objective on activity was seen. Was started on antibiotics ceftriaxone. Follow-up urine culture report. Spironolactone is on hold due to hyperkalemia Continue with rifaximin and Bumex and follow-up fluid status closely. PT OT consult Discussed with the patient and her brother at bedside in detail. Prognosis is guarded. Time with Patient: Greater than 30
--- NOTE | 2023-08-11 09:38 | P.PN ---
Subjective Progress Note Date: 08/10/23 Patient is a 68-year-old female with a known history of alcoholic liver cirrhosis, atrial fibrillation, COPD, hypertension, memory impairment, CKD stage IIIb and chronic left lower extremity wound, anxiety/depression currently everyday smoker was brought to the hospital due to complaints of generalized w eakness, dizziness for the past 2 to 3 days. Patient was also having nausea. States that she had abdominal pain yesterday. No diarrhea. Patient is also having difficulty walking and feels completely fatigued and weak. Denies any complaints of chest pain or shortness of breath. No cough or sputum production. No fever no chills. There is also concern regarding her medications mixed up and she may have taken double dose of trazodone or other medications. Patient is not sure. Patient is poor historian otherwise. Most of the history was taken from her brother at bedside. Patient was found to be hyperkalemic and was given insulin/D50 patient became hypoglycemic with blood sugar went down to 25. Due to altered mental status and elevated ammonia level neurology was consulted as well. Chest x-ray showed no evidence for acute pulmonary process. EKG showed sinus bradycardia. Laboratory data showed WBC 5.3 hemoglobin 11.1 and platelets 233, MCV 17.2 APTT 20.6 Sodium 144 potassium 5.5 chloride 120 bicarb is 16 BUN 39 and creatinine 2.6 Blood sugar 113 Magnesium 2.6 alk phos 155 ammonia 182 TSH 6.32 and free T4 level 1.23 within normal limits. Albumin 3.0 urinalysis showed moderate leukocyte esterase with WBCs 10 and squamous epithelial cells 1 UDS was positive for opiates. Patient is currently not on any opiate medications and repeat UDS was ordered as per family request. 08/09/2023 Patient is resting in bed. Awake alert and oriented. Mentation is better today. Still lethargic and drowsy. No complaints of chest pain or shortness of breath. No nausea vomiting or abdominal pain. Was able to tolerate oral diet slowly. IV fluids will be on hold. Otherwise patient is being continued on ceftriaxone antibiotics and also on tramadol for pain control. Bumex will be restarted. Spironolactone is on hold due to hyperkalemia. Hyperkalemia has resolved now. Laboratory data showed WBC 7.3 hemoglobin 10.6 and platelets 217 Sodium 146 potassium 4.4 chloride 124 bicarb is 13 BUN 36 and creatinine 2.53 and blood sugar 199. B12 level 754. 08/10/2023 Patient is resting in the bed. Awake alert and oriented x 3. Mentation is at baseline. Patient is able to tolerate oral diet slowly. No complaints of chest pain or abdominal pain. Patient did have a bowel meant and ammonia level is normalized today. No headache or dizziness or lightheadedness. PT OT to be seen tomorrow. Anticipate discharge in the next 24 hours. Spironolactone will be on hold at discharge. Laboratory data showed WBC 6.8 hemoglobin 11.0 and platelets 250 Sodium 142 potassium 5.0 chloride 124 bicarb is 14 BUN 30 and creatinine 2.57 and blood sugar 133. Ammonia level is 26. Current medications reviewed. Objective - Vital Signs Vital signs: Vital Signs Temp 97.9 F 08/10/23 08:30 Pulse 66 08/10/23 15:34 Resp 15 08/10/23 15:34 BP 128/64 08/10/23 15:34 Pulse Ox 99 08/10/23 15:34 FiO2 Intake & Output 08/10/23 08/10/23 08/11/23 06:59 18:59 06:59 Intake Total 466 Output Total 1 Balance -1 466 Intake: IV 10 Invasive Line 2 10 Oral 456 Output: Stool 1 Other: Voiding Method Bedside Commode Bedside Commode # Voids 3 # Bowel Movements 2 5 - Exam PHYSICAL EXAMINATION: Patient is lying in the bed comfortably, no acute distress, awake alert and oriented x 2-3. Lethargic and drowsy and weak.. HEENT: Normocephalic. Neck is supple. Pupils reactive. Nostrils clear. Oral cavity is moist. Neck reveals no JVD, carotid bruits, or thyromegaly. CHEST EXAMINATION: Trachea is central. Symmetrical expansion. Bibasilar diminished sounds otherwise lung reynolds clear to auscultation and percussion. CARDIAC: Normal S1, S2 with no gallops. No murmurs ABDOMEN: Soft. Bowel sounds normal. No organomegaly. No abdominal bruits. Extremities: reveal no edema. No clubbing or cyanosis Neurologically awake, alert, oriented x 2-3 patient is able to move her extremities.. No gross focal deficits noted Skin: No rash or skin lesions. Left lower extremity skin ulcer bandaged. Psychiatric: Coperative. Nonsuicidal Musculoskeletal: No joint swelling or deformity. Normal range of motion. - Labs CBC & Chem 7: 08/10/23 08:09 08/10/23 08:09 Labs: Abnormal Lab Results - Last 24 Hours (Table) 08/10/23 08/10/23 08/10/23 Range/Units 08:09 08:09 11:15 RBC 3.45 L (3.80-5.40) m/uL Hgb 11.0 L (11.4-16.0) gm/dL MCV 110.5 H (80.0-100.0) fL MCHC 28.8 L (31.0-37.0) g/dL RDW 17.2 H (11.5-15.5) % Macrocytosis Marked A Chloride 124 H (98-107) mmol/L Carbon Dioxide 14 L (22-30) mmol/L BUN 30 H (7-17) mg/dL Creatinine 2.57 H (0.52-1.04) mg/dL Glucose 133 H (74-99) mg/dL POC Glucose (mg/dL) 122 H (70-110) mg/dL 08/10/23 Range/Units 16:11 RBC (3.80-5.40) m/uL Hgb (11.4-16.0) gm/dL MCV (80.0-100.0) fL MCHC (31.0-37.0) g/dL RDW (11.5-15.5) % Macrocytosis Chloride (98-107) mmol/L Carbon Dioxide (22-30) mmol/L BUN (7-17) mg/dL Creatinine (0.52-1.04) mg/dL Glucose (74-99) mg/dL POC Glucose (mg/dL) 113 H (70-110) mg/dL Assessment and Plan Assessment: Acute metabolic encephalopathy due to hypoglycemia and elevated ammonia level along with possible UTI. Mental status is back to baseline. Hepatic encephalopathy with underlying alcoholic liver cirrhosis Generalized weakness likely due to volume depletion Mild hyperkalemia due to recently started spironolactone and acute kidney injury. Resolved now. Acute on chronic kidney stage IIIb with baseline creatinine around 1.4-2. Creatinine 2.6 on admission Non-anion gap metabolic acidosis secondary to acute kidney injury Prior history of alcohol abuse Recent admission with elevated troponin level status post cardiac catheterization on 07/18/2023. No obstructive CAD noted. Questionable history of atrial fibrillation. Patient is currently in sinus rhythm. Not on anticoagulation as recommended by cardiology. Due to elevated INR level Microcytic anemia and anemia of chronic disease with evidence of iron deficiency previously. Chronic left lower extremity ulcer continue with wound care Anxiety/depression COPD not in exacerbation Ongoing nicotine addiction Plan: Patient is tolerating oral diet. IV fluids on hold.. Continue with lactulose a nd ammonia level normalized.. Potassium level normalized as well.. Spironolactone is on hold. Due to altered mental status CT head was ordered. Neurology has seen the patient. Patient underwent neurological workup including CT head and EEG which showed background slowing suggestive of moderate to severe encephalopathy. No objective on activity was seen. Was started on antibiotics ceftriaxone. Follow-up urine culture report. Spironolactone is on hold due to hyperkalemia Continue with rifaximin and Bumex and follow-up fluid status closely. PT OT consult Discussed with the patient and her brother at bedside in detail. Prognosis is guarded. Time with Patient: Greater than 30
[2023-08-11 09:49] LABS: Anisocytosis Slight; HCT 37.9 % (34.0-46.0); HGB 10.7 gm/dL (11.4-16.0); Hypochromasia Marked; MCH 30.9 pg (25.0-35.0); MCHC 28.2 g/dL (31.0-37.0); MCV 109.6 fL (80.0-100.0); Macrocytosis Marked; Mean Platelet Volume 9.7; Platelet Count 212 k/uL (150-450); RBC 3.46 m/uL (3.80-5.40)
[2023-08-11 09:52] LABS: African American GFR (CKD) 20 (>60 ml/min/1.73 sqM); Anion Gap 5 mmol/L; Blood Urea Nitrogen 28 mg/dL (7-17); Calcium 9.1 mg/dL (8.4-10.2); Carbon Dioxide 16 mmol/L (22-30); Chloride 123 mmol/L (98-107); Glucose 146 mg/dL (74-99); Non-African American GFR(CKD) 17 (>60 ml/min/1.73 sqM); Potassium 4.6 mmol/L (3.5-5.1); Sodium 144 mmol/L (137-145)
[2023-08-11 10:44] LABS: Eosinophils # (M) 0.72 k/uL (0-0.7); Lymphocytes # (M) 1.74 k/uL (1.0-4.8); Monocytes # (M) 0.18 k/uL (0-1.0); Neutrophils # (M) 3.36 k/uL (1.3-7.7); Neutrophils % (M) 56 %; Nucleated Red Blood Cells 0 /100 WBC (0-0); Total Cells Counted 100
[2023-08-11 10:45] LABS: Crenated RBC Present; RBC Fragments Present
[2023-08-11 10:46] LABS: Poikilocytosis (M) Present; Target Cells Present
[2023-08-11 11:31] LABS: Glucose,Whole Blood 146 mg/dL (70-110)
[2023-08-11 16:26] LABS: Glucose,Whole Blood 136 mg/dL (70-110)
--- NOTE | 2023-08-11 18:29 | P.PN ---
Subjective Progress Note Date: 08/11/23 08/11/2023: Patient was seen for a follow-up. Patient is laying comfortably in the bed. Offers no new complaints. 08/09/2023: Patient initially seen by Dr. Guicho De La Torre yesterday. Please refer to his note for details. Patient came with confusion. She was found to have hypoglycemia with blood sugar of 25, also had elevated ammonia. Also had elevated creatinine and possible UTI. EEG was negative for seizures. Her mentation improved slightly with dextrose. Patient is reclining comfortably in the bed, having her lunch. Patient states she feels "a lot better". She denies any headache. Offers no new complaints. Objective - Vital Signs Vital signs: Vital Signs Temp 98.0 F 08/11/23 15:23 Pulse 59 L 08/11/23 15:23 Resp 15 08/11/23 15:23 BP 103/60 08/11/23 15:23 Pulse Ox 98 08/11/23 15:23 FiO2 Intake & Output 08/10/23 08/11/23 08/11/23 18:59 06:59 18:59 Intake Total 466 896 Output Total 2 Balance 466 894 Intake: IV 10 Invasive Line 2 10 Oral 456 896 Output: Stool 2 Other: Voiding Method Bedside Commode Bedside Commode Bedside Commode # Voids 3 2 2 # Bowel Movements 5 2 2 - Exam Patient's mental status, speech and language functions are normal. Patient knows it is July 2023 and that she is in [facility], in [facility] and name of the current president. Speech and language functions are normal. Latency time to answer questions is fairly normal. Face is symmetric. Visual reynolds are full. Tongue protrudes to midline. She appears slightly icteric. On muscle send testing there is no pronator drift. No ataxia for [id number] testing. - Labs CBC & Chem 7: 08/11/23 08:59 08/11/23 08:59 Labs: Abnormal Lab Results - Last 24 Hours (Table) 08/11/23 08/11/23 08/11/23 Range/Units 08:59 08:59 11:28 RBC 3.46 L (3.80-5.40) m/uL Hgb 10.7 L (11.4-16.0) gm/dL MCV 109.6 H (80.0-100.0) fL MCHC 28.2 L (31.0-37.0) g/dL RDW 17.0 H (11.5-15.5) % Eosinophils # (Manual) 0.72 H (0-0.7) k/uL Macrocytosis Marked A Chloride 123 H (98-107) mmol/L Carbon Dioxide 16 L (22-30) mmol/L BUN 28 H (7-17) mg/dL Creatinine 2.75 H (0.52-1.04) mg/dL Glucose 146 H (74-99) mg/dL POC Glucose (mg/dL) 146 H (70-110) mg/dL 08/11/23 Range/Units 16:25 RBC (3.80-5.40) m/uL Hgb (11.4-16.0) gm/dL MCV (80.0-100.0) fL MCHC (31.0-37.0) g/dL RDW (11.5-15.5) % Eosinophils # (Manual) (0-0.7) k/uL Macrocytosis Chloride (98-107) mmol/L Carbon Dioxide (22-30) mmol/L BUN (7-17) mg/dL Creatinine (0.52-1.04) mg/dL Glucose (74-99) mg/dL POC Glucose (mg/dL) 136 H (70-110) mg/dL Assessment and Plan Assessment: This is a 68-year-old woman with history of cirrhosis from alcohol use, renal insufficiency, presented emergency department because of confusion. While in the ED she had a glucose of 25 during which she had clinically posturing when her sugar was that low and was severely confused. After receiving dextrose no further posturing, and her confusion is improving. Also had elevated ammonia 182 on admission, and CATIE. Encephalopathy due to multifactorial metabolic (hypoglycemia), hepatic encephalopathy with elevated ammonia and CATIE. also patient has possible underlying UTI Hypoglycemia as low as 25---resolved Elevated ammonia with history of cirrhosis from alcohol use Acute on CKI possible acute UTI History of TIA History of ?A-fib per family member then was told she did not need anticoagulation by cardiology team per family member Tobacco use--cutting down History of significant alcohol use Plan: CT of the head revealed no acute intracranial process. Remote injury to the right cerebral hemisphere and second sulci of the left unchanged from prior. I personally reviewed CT head, and appears that evidence of old injury involves cerebellar hemisphere, right more than left. EEG shows background slowing suggestive of moderate to severe encephalopathy. No epileptiform activity was seen. TSH 6.32, with normal free T4 of 1.23. We will defer to IM for abnormal thyroid functions. Vitamin B12 754 and RBC folate 522, which is normal. Cardiac monitoring seems the patient had questionable A. fib about 6 weeks ago. She was told by cardiology that she does not need to be on anticoagulation per brother. I will defer management to primary and cardiology team. patient is on aspirin 81 mg daily. Ammonia on admission was 182, then came down to 173, and today is normal 11. Please avoid any further hypoglycemic events. We'll defer the rest of the medical management to primary team. Neurologically clear. No other workup indicated.
[2023-08-11] MEDS: SPIRONOLACTONE 25 MG TAB PO SCH (20:07)
[2023-08-11] MEDS: VIT A,C & E-LUTEIN-MINERALS 1 EACH TAB PO SCH (20:07)
[2023-08-11 20:13] LABS: Glucose,Whole Blood 137 mg/dL (70-110)
[2023-08-11 22:32] VITALS: RESP 18
[2023-08-12 05:47] LABS: Glucose,Whole Blood 97 mg/dL (70-110)
--- NOTE | 2023-08-12 07:33 | PN ---
PROGRESS NOTE DATE OF SERVICE: 08/11/2023 SUBJECTIVE: This is a 68-year-old woman who was admitted with acute metabolic encephalopathy secondary to hypoglycemia, elevated ammonia with possible UTI, is improving significantly. No chest pain, no palpitations, no fever. OBJECTIVE: VITAL SIGNS: Pulse is 60, blood pressure 120/49, respirations 16. CHEST: Clear to auscultation. ABDOMEN: Soft. NERVOUS SYSTEM: Nonfocal, mild diffuse weakness, patient is sitting up and eating her lunch. LABORATORY DATA: Reviewed. Creatinine is 2.75. Ammonia improved to 11. ASSESSMENT: 1. Acute metabolic encephalopathy, possibly acute hepatic encephalopathy. 2. Possible UTI present on admission. 3. Generalized weakness and dehydration. 4. Acute hyperkalemia. 5. Acute on chronic kidney disease, stage IIIB. 6. Recent cardiac catheterization. 7. Questionable history of atrial fibrillation. 8. Cirrhosis liver. 9. Multiple complex medical issues. RECOMMENDATIONS: Recommended to continue current management, continue symptomatic treatment. Closely follow with Cardiology. Continue with empiric antibiotics, otherwise cultures are negative so far. I would recommend repeat labs. Resume the home medications. Increase ambulation. PT, OT evaluation. Further recommendations to follow. MMODL / IJN: [id number] /
--- NOTE | 2023-08-12 08:18 | CDI ---
Date: 08/12/2023 From: Angie Ann Phone: [phone] Admit Date: 08/08/2023 11:37:00 AM Patient Name: Andie Gonsalez Visit Number: [id number] Discharge Date: ATTENTION: The Clinical Documentation Specialists (CDI) and [facility] Coding Staff appreciate your assistance in clarifying documentation. Please respond to the clarification below the line at the bottom and electronically sign. The CDI & [facility] Coding staff will review the response and follow-up if needed. Please note: Queries are made part of the Legal Health Record. If you have any questions, please contact the author of this message via ITS. Dr. Chasidy Quinn: Patient has a documented BMI of 18.6 on 08/[address] Additional clarification is requested. History/Risk Factors: Alcoholic liver cirrhosis, AFIb, COPD, HTN, CKD3b, chronic left lower extremity wound who presents with generalized weakness, dizziness Clinical Indicators: 08/08 Patients weight is 54kg Patients height is 5ft 7in Calculated BMI is 18.6 08/08 RD Assessment: "MST 2-unsure weight loss, Underweight, pt states weight loss from water weight, 143lbs (65kg) 2 weeks ago." 08/07 Total Protein: 6.0 Treatments: Dietary Consult, recommend General diet and Ensure once daily Please clarify, is there is an additional diagnosis that is clinically appropriate for this patient? [ ] Underweight [ ] No additional diagnosis/not clinically significant [ ] Other, please specify [ ] Unable to determine Underweight MTDD
[2023-08-12] MEDS: CHOLECALCIFEROL 125 MCG (5000 IU) TABLET PO SCH (08:22)
[2023-08-12] MEDS: VITAMIN E (DL,TOCOPHERYL ACET) 400 UNIT (180 MG) CAP PO SCH (08:22)
[2023-08-12] MEDS: FERROUS SULFATE 325 MG TAB PO SCH (08:22)
--- NOTE | 2023-08-12 08:32 | CDI ---
Date: 08/12/2023 From: Angie Ann Phone: [phone] Admit Date: 08/08/2023 11:37:00 AM Patient Name: Andie Gonsalez Visit Number: [id number] Discharge Date: ATTENTION: The Clinical Documentation Specialists (CDI) and [facility] Coding Staff appreciate your assistance in clarifying documentation. Please respond to the clarification below the line at the bottom and electronically sign. The CDI & [facility] Coding staff will review the response and follow-up if needed. Please note: Queries are made part of the Legal Health Record. If you have any questions, please contact the author of this message via ITS. Dr. Chasidy Quinn There is documentation of a possible UTI in the H&P on 08/07 and in subsequent IM notes. Additional clarification is requested. History/Risk Factors: Alcoholic liver cirrhosis, AFIb, COPD, HTN, CKD3b, chronic left lower extremity wound who presents with generalized weakness, dizziness Clinical Indicators: 08/07 H&P, Assessment and Plan: "Acute metabolic encephalopathy due to hypoglycemia and elevated ammonia level along with possible UTI." 08/10 IM PN, Assessment: "2. Possible UTI present on admission." 08/07-08/10 WBC: 5.3, 7.3, 6.8, 6.0 08/07 Urinalysis: Color: Colorless, Appearance: Clear, Leukocyte Esterase: Moderate, WBC: 10, Amorphous Sediment: Rare, Bacteria: Many, Hyaline Casts 6, Mucus: Rare Treatment: Ceftriaxone 1gram IV [id number] start 08/08 Normal Saline IV 75cc/hour 08/07-08/08 Can you please clarify if UTI is a valid diagnosis? [ ] UTI, POA and treated [ ] UTI ruled out [ ] Other, please specify [ ] Unable to determine UTI, POA and treated MTDD
[2023-08-12 10:39] LABS: ALT 26 U/L (4-34); AST 35 U/L (14-36); African American GFR (CKD) 22 (>60 ml/min/1.73 sqM); Albumin 2.5 g/dL (3.5-5.0); Alkaline Phosphatase 146 U/L (38-126); Anion Gap 7 mmol/L; Blood Urea Nitrogen 28 mg/dL (7-17); Calcium 8.7 mg/dL (8.4-10.2); Carbon Dioxide 16 mmol/L (22-30); Chloride 120 mmol/L (98-107); Glucose 117 mg/dL (74-99); Non-African American GFR(CKD) 19 (>60 ml/min/1.73 sqM); Potassium 4.7 mmol/L (3.5-5.1); Sodium 143 mmol/L (137-145); Total Bilirubin 0.4 mg/dL (0.2-1.3); Total Protein 5.3 g/dL (6.3-8.2)
[2023-08-12 11:11] LABS: Anisocytosis Slight; HCT 35.4 % (34.0-46.0); HGB 9.9 gm/dL (11.4-16.0); Hypochromasia Marked; MCH 30.7 pg (25.0-35.0); MCHC 28.1 g/dL (31.0-37.0); MCV 109.2 fL (80.0-100.0); Macrocytosis Marked; Mean Platelet Volume 10.5; Platelet Count 198 k/uL (150-450); RBC 3.24 m/uL (3.80-5.40); RDW 17.1 % (11.5-15.5); WBC 6.4 k/uL (3.8-10.6)
[2023-08-12 11:22] LABS: Glucose,Whole Blood 132 mg/dL (70-110)
[2023-08-12 13:13] VITALS: BP 118/57; PULSE 59; TEMP 97.6
--- NOTE | 2023-08-12 13:44 | P.DS ---
Providers Date of admission: 08/08/23 11:37 Expected date of discharge: 08/12/23 Attending physician: Johanna Ventura Consults: 08/08/23 15:04 Consult Physician Stat Consulting Provider: Guicho De La Torre Consult Reason/Comments: AMS Do you want consulting provider notified?: Yes Primary care physician: Zac Wright Hospital Course: Final diagnosis Acute metabolic encephalopathy, possibly acute hepatic encephalopathy Acute urinary tract infection, present on admission Generalized weakness and dehydration Acute hyperkalemia, improved Acute on chronic kidney disease, stage IIIb Recent cardiac catheterization Questionable history of atrial fibrillation, follow-up with cardiology outpatient Cirrhosis of the liver Generalized weakness and gait dysfunction Moderate protein calorie malnutrition with a BMI of 18.6 GI prophylaxis DVT prophylaxis No code Discharge disposition Patient is being discharged in a stable condition with guarded prognosis to [facility]. Patient will follow-up with Dr. Wright in the outpatient setting upon discharge. Patient is to continue with close outpatient follow-up with nephrology as well as GI outpatient as scheduled. Continue on oral antibiotics for the next few days to complete the course. Total time taken is greater than 35 minutes. Hospital course This is a 68year-old female who was recently admitted with acute metabolic encephalopathy secondary to hypoglycemia, elevated ammonia levels and concerns of acute urinary tract infection, present on admission. Patient clinically improved on ceftriaxone and will continue on oral Ceftin for 3 days to complete the course. Patient with generalized weakness evaluated by physical therapy recommending rehab and patient is agreeable. Patient will be needing close outpatient follow-up with nephrology as well as GI in the outpatient setting. Continue lactulose and titrate for patient to have at least 1-2 bowel movements daily. Ammonia level 22 today and recommend follow-up labs of CBC, BMP, magnesium, ammonia in the next 2 to 3 days. Patient has been cleared by consultations. Patient reports to feeling well other than generalized weakness and would like to go home. Currently no reports of chest pain, shortness of breath, or palpitations. Patient is afebrile. No reports of nausea or vomiting and patient is tolerating diet. Patient will be going to [facility] today. Guarded prognosis. Physical exam: Gen: This is a 68-year-old female who is awake, alert and oriented x 2-3, thin built, elderly appearing HEENT: Head is atraumatic, normocephalic. Pupils equal, round. Sclerae is anicteric. NECK: Supple. No JVD. No lymphadenopathy. No thyromegaly. LUNGS: Diminished breath sounds bilaterally otherwise clear to auscultation. No wheezes or rhonchi. No intercostal retractions. HEART: S1, S2 are muffled ABDOMEN: Soft. Bowel sounds are present. No masses. No tenderness. EXTREMITIES: No pedal edema. No calf tenderness. NEUROLOGICAL: Patient is awake, alert and oriented x2-3. Cranial nerves 2 through 12 are grossly intact. Diffusely weak Please refer to medication reconciliation sheet for a list of medications. The impression and plan of care has been dictated by Dorothy Rader, Nurse Practitioner as directed. Dr. Kai MD I have performed a history and examination and MDM of this patient, discussed the same with the dictator, and agree with the dictator's assessment and plan as written ,documented as a scribe. Based on total visit time, I have performed more than 50% of the visit. Patient Condition at Discharge: Fair Plan - Discharge Summary Discharge Rx Participant: Yes New Discharge Prescriptions: New cefUROXime axetiL [Ceftin] 500 mg PO BID 3 Days #6 tab Continue Aspirin EC [Ecotrin Low Dose] 81 mg PO DAILY Ferrous Sulfate [Iron (65 MG Elemental)] 325 mg PO DAILY Melatonin 5 mg PO HS Rifaximin [Xifaxan] 550 mg PO BID FLUoxetine HCL 40 mg PO DAILY Spironolactone [Aldactone] 25 mg PO BID 90 Days #180 tab Cholecalciferol [Vitamin D3 (125 Mcg = 5000 Iu)] 125 mcg PO DAILY Vit C/E/Zn/Coppr/Lutein/Zeaxan [Preservision Areds 2 Softgel] 1 cap PO BID Lactulose [Cephulac] 30 gm PO TID traZODone HCL [Desyrel] 50 mg PO HS Omeprazole 20 mg PO DAILY Vitamin E (Dl,Tocopheryl Acet) [Vitamin E (400 Iu = 180 mg)] 400 unit PO DAILY Bumetanide [BUMEX] 0.5 mg PO DAILY 90 Days #90 tab Discharge Medication List Aspirin EC [Ecotrin Low Dose] 81 mg PO DAILY 02/08/19 [History] Ferrous Sulfate [Iron (65 MG Elemental)] 325 mg PO DAILY 07/10/23 [History] Lactulose [Cephulac] 30 gm PO TID 07/10/23 [History] Melatonin 5 mg PO HS 07/10/23 [History] Omeprazole 20 mg PO DAILY 07/10/23 [History] Rifaximin [Xifaxan] 550 mg PO BID 07/10/23 [History] Vitamin E (Dl,Tocopheryl Acet) [Vitamin E (400 Iu = 180 mg)] 400 unit PO DAILY 07/10/23 [History] traZODone HCL [Desyrel] 50 mg PO HS 07/10/23 [History] FLUoxetine HCL 40 mg PO DAILY 07/15/23 [History] Bumetanide [BUMEX] 0.5 mg PO DAILY 90 Days #90 tab 07/24/23 [Rx] Spironolactone [Aldactone] 25 mg PO BID 90 Days #180 tab 07/24/23 [Rx] Cholecalciferol [Vitamin D3 (125 Mcg = 5000 Iu)] 125 mcg PO DAILY 08/08/23 [History] Vit C/E/Zn/Coppr/Lutein/Zeaxan [Preservision Areds 2 Softgel] 1 cap PO BID 08/08/23 [History] cefUROXime axetiL [Ceftin] 500 mg PO BID 3 Days #6 tab 08/12/23 [Rx] Follow up Appointment(s)/Referral(s): Sejal Crump MD [STAFF PHYSICIAN] - 1 Week Zac Wright MD [Primary Care Provider] - 1-2 days Ambulatory/Diagnostic Orders: Basic Metabolic Panel [LAB.AMB] Time Frame: 3 Days, Location: None Selected Activity/Diet/Wound Care/Special Instructions: Activity limited until follow-up Follow-up with primary care provider on discharge Continue taking medications as prescribed Follow-up with nephrology outpatient in 1 week Follow-up GI outpatient Continue current diet Repeat labs in 2 to 3 days Discharge Disposition: HOME SELF-CARE
[2023-08-12 15:50] LABS: Basophils # (M) 0.13 k/uL (0-0.2); Eosinophils # (M) 0.51 k/uL (0-0.7); Lymphocytes # (M) 1.54 k/uL (1.0-4.8); Monocytes # (M) 0.51 k/uL (0-1.0); Neutrophils # (M) 3.84 k/uL (1.3-7.7); Neutrophils % (M) 60 %; Nucleated Red Blood Cells 0 /100 WBC (0-0); Poikilocytosis (M) Present; Target Cells Present; Total Cells Counted 200
== END 2023-08-12 14:49 | DRG 441 ==
LOC: EC 08:45 → 5NMEDONC 11:36 → OBSVTOIN 11:37 → 5NMEDONC 13:40 → 3SCARD 15:05
PROVIDERS: ADMIT Internal Medicine; ATTEND Internal Medicine
DX: K76.82 Hepatic encephalopathy (principal); G93.41 Metabolic encephalopathy; N39.0 Urinary tract infection, site not specified; E72.20 Disorder of urea cycle metabolism, unspecified; N17.9 Acute kidney failure, unspecified; L97.929 Non-pressure chronic ulcer of unspecified part of left lower leg with unspecified severity; I13.0 Hypertensive heart and chronic kidney disease with heart failure and stage 1 through stage 4 chronic kidney disease, or unspecified chronic kidney disease; E87.20 Acidosis, unspecified; E44.0 Moderate protein-calorie malnutrition; Z68.1 Body mass index [BMI] 19.9 or less, adult; M54.50 Low back pain, unspecified; Z66 Do not resuscitate; E16.2 Hypoglycemia, unspecified; N18.32 Chronic kidney disease, stage 3b; K70.30 Alcoholic cirrhosis of liver without ascites; J44.9 Chronic obstructive pulmonary disease, unspecified; I50.9 Heart failure, unspecified; F32.A Depression, unspecified; D63.8 Anemia in other chronic diseases classified elsewhere; D50.9 Iron deficiency anemia, unspecified; I48.91 Unspecified atrial fibrillation; F41.9 Anxiety disorder, unspecified; M19.90 Unspecified osteoarthritis, unspecified site; F17.200 Nicotine dependence, unspecified, uncomplicated; K21.9 Gastro-esophageal reflux disease without esophagitis; E87.5 Hyperkalemia; E86.0 Dehydration; Z79.82 Long term (current) use of aspirin; Z79.899 Other long term (current) drug therapy; Z96.642 Presence of left artificial hip joint; Z86.73 Personal history of transient ischemic attack (TIA), and cerebral infarction without residual deficits; Z91.81 History of falling
CPT/HCPCS: 36415; 70450; 71046; 80048; 80053; 80306; 80320; 81001; 82140; 82607; 82747; 83605; 83735; 84439; 84443; 84484; 85025; 85610; 85730; 93005; 95819; 96361; 96374; 96375; 99285

== ENCOUNTER → 2023-10-28 | Outpatient (CLI) | payer MEDICARE, OTHER ==
--- NOTE | 2023-10-28 09:27 | US ---
EXAMINATION TYPE: US liver DATE OF EXAM: 10/28/2023 COMPARISON: US Liver 05/23/2023, CT 05/03/2016 CLINICAL INDICATION: Female, 68 years old with history of K70.30 ALCOHOLIC CIRRHOSIS OF LIVER WITHOUT ASCITE; Cirrhosis, hx cholecystectomy. TECHNIQUE: Multiple sonographic images of the right upper quadrant are obtained. FINDINGS: EXAM MEASUREMENTS: Liver Length: 10.2 cm Gallbladder Wall: Surgically absent CBD: 1.4 cm Right Kidney: 9.1 x 5.1 x 4.5 cm MEDICAL STAFF COORDINATOR NOTES: Exam is limited due to gas. Pancreas: Not well seen. Liver: Appears small with coarse echotexture and increased echogenicity. Hyperechoic focus with po sterior shadowing seen within the left lobe: 1.0 x 1.0 x 0.4 cm. Gallbladder: Surgically absent CBD: Dilated Right Kidney: No hydronephrosis or masses seen Dilated common bile duct which is likely normal postcholecystectomy. Pancreas is not well-seen due to overlying bowel gas. Right kidney is unremarkable without evidence of hydronephrosis or mass. No nep hrolithiasis. Shadowing echogenic focus consistent with a calcification again seen within the liver. Small size the liver redemonstrated with coarsened echotexture. Surface nodularity is not well apprec iated on today's exam. No focal lesion is seen. No perihepatic ascites identified. IMPRESSION: 1. Small liver size again demonstrated with coarsened echotexture. No focal lesion identified. Findi ngs may reflect underlying chronic hepatocellular disease. 2. Common bile duct remains dilated at 1.4 cm, likely chronic post cholecystectomy status.
[2023-10-28 11:40] LABS: MCHC 32.3 g/dL (32.0-37.0); Mean Platelet Volume 10.8 FL (9.5-12.2); NRBC Per 100 WBC 0 X 10*3/uL (0.00-0.01); Platelet Count 210 X 10*3/uL (140-440); RBC 3.23 X 10*6/uL (4.10-5.20); RDW 16.6 % (11.5-14.5); WBC 6.08 X 10*3/uL (4.50-10.00)
[2023-10-28 11:50] LABS: BUN/Creat Ratio 7.64 Ratio (12.00-20.00); Blood Urea Nitrogen 16.8 mg/dL (9.0-27.0); Chloride 112 mmol/L (96-109); Glucose 107 mg/dL (70-110); Potassium 4.4 mmol/L (3.5-5.5); Sodium 146 mmol/L (135-145)
[2023-10-28 11:51] LABS: ALT 34 U/L (8-44); AST 48 U/L (13-35); Albumin 3.6 g/dL (3.8-4.9); Albumin/Globulin Ratio 1.89 Ratio (1.60-3.17); Alkaline Phosphatase 131 U/L (41-126); Calcium 9.9 mg/dL (8.7-10.3); Carbon Dioxide 23.2 mmol/L (21.6-31.8); Globulin 1.9 g/dL (1.6-3.3); Total Bilirubin 0.8 mg/dL (0.3-1.2); Total Protein 5.5 g/dL (6.2-8.2)
== END | disposition home or self-care (01) ==
LOC: RADUSWWP 06:46
PROVIDERS: ATTEND Internal Medicine Gastroenterology
DX: K70.30 Alcoholic cirrhosis of liver without ascites (principal); Z90.49 Acquired absence of other specified parts of digestive tract
CPT/HCPCS: 76705; 80053; 82105; 85027

== ENCOUNTER 2023-11-01 14:11 | Emergency (ER) | payer MEDICARE, OTHER ==
[2023-11-01] MEDS ORDERED: LORazepam 2 MG/ML INJ IV STA (14:56)
--- NOTE | 2023-11-01 15:06 | ED ---
Altered Mental Status HPI - General Chief Complaint: Altered Mental Status Stated Complaint: Mental Health Time Seen by Provider: 11/01/23 14:24 Source: patient, police, EMS, RN notes reviewed, old records reviewed Mode of arrival: EMS Limitations: no limitations - History of Present Illness Initial Comments: This is a 68-year-old female to the ER for evaluation patient presents today for evaluation of psychiatric illness as she was found wandering down the road [place] the [place] EMS and PD were called and patient was brought to the ER for altered mental status patient is known to the local community and she had left [facility] and they were alerted authorities to find this patient wandering. Patient here in the ER does not want to live at [facility] anymore MD Complaint: altered mental status, confusion -: unknown Severity: moderate Consistency of Symptoms: waxing and waning Associated Symptoms: denies other symptoms - Related Data Home Medications Medication Instructions Recorded Confirmed Aspirin EC [Ecotrin Low Dose] 81 mg PO DAILY@89902/08/19 11/05/23 Ferrous Sulfate [Iron (65 MG 325 mg PO DAILY@89907/10/23 11/05/23 Elemental)] Lactulose [Cephulac] 30 gm PO QID@09,13,17,21 07/10/23 11/05/23 Melatonin 5 mg PO HS@209907/10/23 11/05/23 Omeprazole 20 mg PO DAILY@59907/10/23 11/05/23 Rifaximin [Xifaxan] 550 mg PO BID@899,209907/10/23 11/05/23 Vitamin E (Dl,Tocopheryl Acet) 400 unit PO DAILY@89907/10/23 11/05/23 [Vitamin E (400 Iu = 180 mg)] traZODone HCL [Desyrel] 50 mg PO HS@209907/10/23 11/05/23 FLUoxetine HCL 40 mg PO HS@209907/15/23 11/05/23 Cholecalciferol [Vitamin D3 (125 125 mcg PO DAILY@89908/08/23 11/05/23 Mcg = 5000 Iu)] Vit C/E/Zn/Coppr/Lutein/Zeaxan 1 cap PO BID@899,209908/08/23 11/05/23 [Preservision Areds 2 Softgel] Bumetanide [Bumex] 1 mg PO DAILY@0600 11/01/23 11/05/23 Allergies Allergy/AdvReac Type Severity Reaction Status Date / Time No Known Allergies Allergy Verified 11/05/23 15:45 Review of Systems ROS Statement: Those systems with pertinent positive or pertinent negative responses have been documented in the HPI. ROS Other: All systems not noted in ROS Statement are negative. 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 spinal meningitis yrs ago(effects speech and balance), carotid artery disease, fluctuating blood pressure, enlarged heart/value issues, edema in joon legs, hx hiatal hernia, chronic venous insufficiency-"hard time healing" History of Any Multi-Drug Resistant Organisms: None Reported Date of last positivie culture/infection: 2011 MDRO Source:: stool Past Surgical History: Cholecystectomy, Heart Catheterization, Joint Replacement Additional Past Surgical History / Comment(s): SURGERY ON SPLEEN, left hip replacement, JONA Past Anesthesia/Blood Transfusion Reactions: Previous Problems w/ Anesthesia Additional Past Anesthesia/Blood Transfusion Reaction / Comment(s): "trouble waking her up" per brother Past Psychological History: Anxiety, Depression Smoking Status: Current every day smoker Past Alcohol Use History: None Reported Past Drug Use History: None Reported - Past Family History Mother Family Medical History: Cancer Additional Family Medical History / Comment(s): Breast cancer/lung cancer, enlarged heart. Father Family Medical History: Cancer, Deep Vein Thrombosis (DVT) General Exam Limitations: no limitations General appearance: alert, in no apparent distress Head exam: Present: atraumatic, normocephalic, normal inspection Eye exam: Present: normal appearance, PERRL, EOMI. Absent: scleral icterus, conjunctival injection, periorbital swelling ENT exam: Present: normal exam, mucous membranes moist Neck exam: Present: normal inspection. Absent: tenderness, meningismus, lymphadenopathy Respiratory exam: Present: normal lung sounds bilaterally. Absent: respiratory distress, wheezes, rales, rhonchi, stridor Cardiovascular Exam: Present: regular rate, normal rhythm, normal heart sounds. Absent: systolic murmur, diastolic murmur, rubs, gallop, clicks GI/Abdominal exam: Present: soft, normal bowel sounds. Absent: distended, tenderness, guarding, rebound, rigid Extremities exam: Present: normal inspection, full ROM, normal capillary refill. Absent: tenderness, pedal edema, joint swelling, calf tenderness Back exam: Present: normal inspection Neurological exam: Present: alert, oriented X3, CN II-XII intact Psychiatric exam: Present: normal affect, normal mood Skin exam: Present: warm, dry, intact, normal color. Absent: rash Course Vital Signs 11/01/23 11/01/23 11/01/23 14:22 16:44 19:21 Temperature 98.6 F Pulse Rate 82 72 67 Respiratory 18 16 16 Rate Blood Pressure 159/74 163/81 166/74 O2 Sat by Pulse 96 97 97 Oximetry 11/01/23 21:18 Temperature 98.2 F Pulse Rate 67 Respiratory 16 Rate Blood Pressure 168/62 O2 Sat by Pulse 98 Oximetry - Reevaluation(s) Reevaluation #1: 11/01/23 19:25 Medical records reviewed Reevaluation #2: 11/01/23 19:25 Medically cleared for psychiatric evaluation Reevaluation #3: 11/01/23 19:26 Informed of results and questions answered Reevaluation #4: Was pt. sent in by a medical professional or institution (, PA, ALLERGIST/PEDIATRIC PULMONOLOGIST, urgent care, hospital, or shelter...) When possible be specific @ -no Did you speak to anyone other than the patient for history (EMS, parent, family, police, friend...)? What history was obtained from this source @ -no Did you review nursing and triage notes (agree or disagree)? Why? @ -agree Are old charts reviewed (outside hosp., previous admission, EMS record, old EKG, old radiological studies, urgent care reports/EKG's, shelter records)? Re port findings @ -yes Differential Diagnosis (chest pain, altered mental status, abdominal pain women, abdominal pain men, vaginal bleeding, weakness, fever, dyspnea, syncope, headache, dizziness, GI bleed, back pain, seizure, CVA, palpatations, mental health, musculoskeletal)? @ -prior EKG interpreted by me (3pts min.). @ -yes X-rays interpreted by me (1pt min.). @ -no CT interpreted by me (1pt min.). @ -no U/S interpreted by me (1pt. min.). @ -no What testing was considered but not performed or refused? (CT, X-rays, U/S, labs)? Why? @ -none What meds were considered but not given or refused? Why? @ -none Did you discuss the management of the patient with other professionals (edouard schaffer i.e. , PA, ALLERGIST/PEDIATRIC PULMONOLOGIST, lab, RT, psych nurse, social worker masters, process safety engineering technologist, teacher, security officer supervisor, hospice case manager)? Give summary @ -no Was smoking cessation discussed for >3mins.? @ -no Was critical care preformed (if so, how long)? @ -no Were there social determinants of health that impacted care today? How? (Homelessness, low income, unemployed, alcoholism, drug addiction, transportation, low edu. Level, literacy, decrease access to med. care, longterm, rehab)? @ -none Was there de-escalation of care discussed even if they declined (Discuss DNR or withdrawal of care, Hospice)? DNR status @ -no What co-morbidities impacted this encounter? (DM, HTN, Smoking, COPD, CAD, Cancer, CVA, ARF, Chemo, Hep., AIDS, mental health diagnosis, sleep apnea, morbid obesity)? @ -none Was patient admitted / discharged? Hospital course, mention meds given and route, prescriptions, significant lab abnormalities, going to OR and other pertinent info. @ - 68 female to ER for evaluation of mental health, patient is having combativeness and unhappy with current state of living but patient at this time has agreed to go back to [facility], patient is seen by psychiatry here in the ER no reason for psychiatric admission patient has medical evaluation no reason for medical admission Discharged Undiagnosed new problem with uncertain prognosis? @ -no Drug Therapy requiring intensive monitoring for toxicity (Heparin, Nitro, Insulin, Cardizem)? @ -no Were any procedures done? @ -no Diagnosis/symptom? @ -Mood disorder Acute, or Chronic, or Acute on Chronic? @ -Acute Uncomplicated (without systemic symptoms) or Complicated (systemic symptoms)? @ -Complicated Side effects of treatment? @ -no Exacerbation, Progression, or Severe Exacerbation? @ -exacerbation Poses a threat to life or bodily function? How? (Chest pain, [place], [place], pneumonia, PE, COPD, DKA, ARF, appy, cholecystitis, CVA, Diverticulitis, Homicidal, Suicidal, threat to staff... and all critical care pts) @ -yes extremise of age Reevaluation #5: Differential Mental Health Depression, anxiety, bipolar, psychosis, schizophrenia, borderline personality, situational depression, adjustment disorder, behavioral disorder, brain tumor, malingering, substance abuse, encephalopathy, medication reaction, dementia, h ypothyroidism, degenerative neurologic disorder, lupus.... This is not meant to be all-inclusive list Medical Decision Making - Medical Decision Making 68 female to ER for evaluation of mental health, patient is having combativeness and unhappy with current state of living but patient at this time has agreed to go back to [facility], patient is seen by psychiatry here in the ER no reason for psychiatric admission patient has medical evaluation no reason for medical admission - Lab Data Result diagrams: 11/01/23 16:26 11/01/23 16:26 Lab Results 11/01/23 11/01/23 11/01/23 Range/Units 15:12 16:26 16:26 WBC 5.4 (3.8-10.6) k/uL RBC 3.09 L (3.80-5.40) m/uL Hgb 9.7 L (11.4-16.0) gm/dL Hct 31.9 L (34.0-46.0) % MCV 103.0 H (80.0-100.0) fL MCH 31.4 (25.0-35.0) pg MCHC 30.5 L (31.0-37.0) g/dL RDW 15.1 (11.5-15.5) % Plt Count 177 (150-450) k/uL MPV 9.2 Neutrophils % 43 % Lymphocytes % 35 % Monocytes % 7 % Eosinophils % 11 % Basophils % 2 % Neutrophils # 2.3 (1.3-7.7) k/uL Lymphocytes # 1.9 (1.0-4.8) k/uL Monocytes # 0.4 (0-1.0) k/uL Eosinophils # 0.6 (0-0.7) k/uL Basophils # 0.1 (0-0.2) k/uL Hypochromasia Moderate Macrocytosis Slight PT 12.8 H (10.0-12.5) sec INR 1.2 H (<1.2) APTT 26.1 (22.0-30.0) sec Sodium (137-145) mmol/L Potassium (3.5-5.1) mmol/L Chloride (98-107) mmol/L Carbon Dioxide (22-30) mmol/L Anion Gap mmol/L BUN (7-17) mg/dL Creatinine (0.52-1.04) mg/dL Est GFR (CKD-EPI)AfAm (>60 ml/min/1.73 sqM) Est GFR (CKD-EPI)NonAf (>60 ml/min/1.73 sqM) Glucose (74-99) mg/dL Calcium (8.4-10.2) mg/dL Total Bilirubin (0.2-1.3) mg/dL AST (14-36) U/L ALT (4-34) U/L Alkaline Phosphatase (38-126) U/L Ammonia (<30) umol/L Troponin I (0.000-0.034) ng/mL Total Protein (6.3-8.2) g/dL Albumin (3.5-5.0) g/dL Urine Color Light Yellow Urine Appearance Clear (Clear) Urine pH 5.5 (5.0-8.0) Ur Specific [place] 1.013 (1.001-1.035) Urine Protein Trace H (Negative) Urine Glucose (UA) Negative (Negative) Urine Ketones Negative (Negative) Urine Blood Negative (Negative) Urine Nitrite Negative (Negative) Urine Bilirubin Negative (Negative) Urine Urobilinogen <2.0 (<2.0) mg/dL Ur Leukocyte Esterase Moderate H (Negative) Urine RBC 2 (0-5) /hpf Urine WBC 11 H (0-5) /hpf Ur Squamous Epith Cells 3 (0-4) /hpf Urine Bacteria Rare H (None) /hpf Hyaline Casts 19 H (0-2) /lpf Urine Mucus Rare H (None) /hpf Urine Opiates Screen Not Detected (NotDetected) Ur Oxycodone Screen Not Detected (NotDetected) Urine Methadone Screen Not Detected (NotDetected) Ur Barbiturates Screen Not Detected (NotDetected) U Tricyclic Antidepress Not Detected (NotDetected) Ur Phencyclidine Scrn Not Detected (NotDetected) Ur Amphetamines Screen Not Detected (NotDetected) U Methamphetamines Scrn Not Detected (NotDetected) U Benzodiazepines Scrn Detected H (NotDetected) Urine Cocaine Screen Not Detected (NotDetected) U Marijuana (THC) Screen Not Detected (NotDetected) Serum Alcohol mg/dL 11/01/23 11/01/23 11/01/23 Range/Units 16:26 16:26 16:26 WBC (3.8-10.6) k/uL RBC (3.80-5.40) m/uL Hgb (11.4-16.0) gm/dL Hct (34.0-46.0) % MCV (80.0-100.0) fL MCH (25.0-35.0) pg MCHC (31.0-37.0) g/dL RDW (11.5-15.5) % Plt Count (150-450) k/uL MPV Neutrophils % % Lymphocytes % % Monocytes % % Eosinophils % % Basophils % % Neutrophils # (1.3-7.7) k/uL Lymphocytes # (1.0-4.8) k/uL Monocytes # (0-1.0) k/uL Eosinophils # (0-0.7) k/uL Basophils # (0-0.2) k/uL Hypochromasia Macrocytosis PT (10.0-12.5) sec INR (<1.2) APTT (22.0-30.0) sec Sodium 145 (137-145) mmol/L Potassium 4.0 (3.5-5.1) mmol/L Chloride 118 H (98-107) mmol/L Carbon Dioxide 24 (22-30) mmol/L Anion Gap 3 mmol/L BUN 16 (7-17) mg/dL Creatinine 2.35 H (0.52-1.04) mg/dL Est GFR (CKD-EPI)AfAm 24 (>60 ml/min/1.73 sqM) Est GFR (CKD-EPI)NonAf 21 (>60 ml/min/1.73 sqM) Glucose 92 (74-99) mg/dL Calcium 8.9 (8.4-10.2) mg/dL Total Bilirubin 0.7 (0.2-1.3) mg/dL AST 46 H (14-36) U/L ALT 33 (4-34) U/L Alkaline Phosphatase 127 H (38-126) U/L Ammonia 31 H (<30) umol/L Troponin I 0.023 (0.000-0.034) ng/mL Total Protein 5.3 L (6.3-8.2) g/dL Albumin 2.9 L (3.5-5.0) g/dL Urine Color Urine Appearance (Clear) Urine pH (5.0-8.0) Ur Specific [place] (1.001-1.035) Urine Protein (Negative) Urine Glucose (UA) (Negative) Urine Ketones (Negative) Urine Blood (Negative) Urine Nitrite (Negative) Urine Bilirubin (Negative) Urine Urobilinogen (<2.0) mg/dL Ur Leukocyte Esterase (Negative) Urine RBC (0-5) /hpf Urine WBC (0-5) /hpf Ur Squamous Epith Cells (0-4) /hpf Urine Bacteria (None) /hpf Hyaline Casts (0-2) /lpf Urine Mucus (None) /hpf Urine Opiates Screen (NotDetected) Ur Oxycodone Screen (NotDetected) Urine Methadone Screen (NotDetected) Ur Barbiturates Screen (NotDetected) U Tricyclic Antidepress (NotDetected) Ur Phencyclidine Scrn (NotDetected) Ur Amphetamines Screen (NotDetected) U Methamphetamines Scrn (NotDetected) U Benzodiazepines Scrn (NotDetected) Urine Cocaine Screen (NotDetected) U Marijuana (THC) Screen (NotDetected) Serum Alcohol <10 mg/dL - EKG Data -: EKG Interpreted by Me (EKG is sinus 71 WI 199 QRS 87 QTc 466) Disposition Clinical Impression: Altered mental status Disposition: HOME SELF-CARE Condition: Fair Instructions (If sedation given, give patient instructions): Altered Mental Status (ED) Is patient prescribed a controlled substance at d/c from ED?: No Referrals: Zac Wright MD [Primary Care Provider] - 1-2 days
[2023-11-01 15:32] LABS: Appearance,Urine Clear (Clear); Bacteria,Urine Rare /hpf; Bilirubin,Urine Negative (Negative); Blood,Urine Negative (Negative); Color,Urine Light Yellow; Glucose,Urine (UA) Negative (Negative); Hyaline Casts,Urine 19 /lpf (0-2); Ketones,Urine Negative (Negative); Leukocyte Esterase,Urine Moderate (Negative); Mucus,Urine Rare /hpf; Nitrite,Urine Negative (Negative); PH, Urine 5.5 (5.0-8.0); Protein,Urine Trace (Negative); RBC,Urine 2 /hpf (0-5); Specific Gravity,Urine 1.013 (1.001-1.035); Squamous Epithelial Cell,Urine 3 /hpf (0-4); Urobilinogen,Urine <2.0 mg/dL (<2.0); WBC,Urine 11 /hpf (0-5)
[2023-11-01 15:34] LABS: Amphetamine Screen,Urine Not Detected (NotDetected); Barbiturate Screen,Urine Not Detected (NotDetected); Benzodiazepines Screen,Urine Detected (NotDetected); Cocaine Screen,Urine Not Detected (NotDetected); Methadone Screen, Urine Not Detected (NotDetected); Opiate Screen,Urine Not Detected (NotDetected); Oxycodone Screen, Urine Not Detected (NotDetected); Phencyclidine Screen,Urine Not Detected (NotDetected); Tricyclic Antidepressant,Urine Not Detected (NotDetected); Urn Cannabinoid Scrn Not Detected (NotDetected)
[2023-11-01] MEDS: SODIUM CHLORIDE 0.9% 1,000 ML IV ONE (15:37)
[2023-11-01 16:34] LABS: Basophils # (A) 0.1 k/uL (0-0.2); Basophils % (A) 2 %; Eosinophils # (A) 0.6 k/uL (0-0.7); Eosinophils % (A) 11 %; HCT 31.9 % (34.0-46.0); HGB 9.7 gm/dL (11.4-16.0); Hypochromasia Moderate; Lymphocytes # (A) 1.9 k/uL (1.0-4.8); Lymphocytes % (A) 35 %; MCH 31.4 pg (25.0-35.0); MCHC 30.5 g/dL (31.0-37.0); Macrocytosis Slight; Mean Platelet Volume 9.2; Monocytes # (A) 0.4 k/uL (0-1.0); Monocytes % (A) 7 %; Neutrophils # (A) 2.3 k/uL (1.3-7.7); Neutrophils % (A) 43 %; Platelet Count 177 k/uL (150-450); RBC 3.09 m/uL (3.80-5.40); RDW 15.1 % (11.5-15.5); WBC 5.4 k/uL (3.8-10.6)
[2023-11-01 16:48] VITALS: RESP 16
[2023-11-01 16:53] LABS: INR 1.2 (<1.2); Partial Thromboplastin Time 26.1 sec (22.0-30.0); Prothrombin Time 12.8 sec (10.0-12.5)
[2023-11-01 17:00] LABS: ALT 33 U/L (4-34); AST 46 U/L (14-36); African American GFR (CKD) 24 (>60 ml/min/1.73 sqM); Albumin 2.9 g/dL (3.5-5.0); Alcohol <10 mg/dL; Alkaline Phosphatase 127 U/L (38-126); Anion Gap 3 mmol/L; Blood Urea Nitrogen 16 mg/dL (7-17); Calcium 8.9 mg/dL (8.4-10.2); Carbon Dioxide 24 mmol/L (22-30); Chloride 118 mmol/L (98-107); Glucose 92 mg/dL (74-99); Non-African American GFR(CKD) 21 (>60 ml/min/1.73 sqM); Sodium 145 mmol/L (137-145); Total Bilirubin 0.7 mg/dL (0.2-1.3); Total Protein 5.3 g/dL (6.3-8.2)
[2023-11-01 19:23] VITALS: PULSE 67
[2023-11-01 21:26] VITALS: BP 168/62; TEMP 98.2
== END 2023-11-01 21:26 | disposition home or self-care (01) ==
LOC: EC 14:11
DX: R41.82 Altered mental status, unspecified (principal); F17.200 Nicotine dependence, unspecified, uncomplicated
CPT/HCPCS: 82075; 36415; 93005; 80053; 82140; 84484; 85025; 85610; 85730; 81001; 80306; 99285; 96360; G0480; 80320

== ENCOUNTER 2023-11-05 15:06 | Emergency (ER) | payer MEDICARE, OTHER ==
[2023-11-05 15:12] VITALS: TEMP 97.5
[2023-11-05] MEDS: SODIUM CHLORIDE 0.9% 1,000 ML IV ONE (15:45)
[2023-11-05 15:46] LABS: Glucose,Whole Blood 169 mg/dL (70-110)
[2023-11-05 15:57] LABS: HCT 32.4 % (34.0-46.0); Hypochromasia Marked; MCH 31.6 pg (25.0-35.0); MCHC 30.9 g/dL (31.0-37.0); MCV 102.3 fL (80.0-100.0); Macrocytosis Slight; Platelet Count 177 k/uL (150-450); RBC 3.17 m/uL (3.80-5.40); RDW 15.3 % (11.5-15.5)
[2023-11-05 16:12] LABS: ALT 33 U/L (4-34); AST 52 U/L (14-36); African American GFR (CKD) 27 (>60 ml/min/1.73 sqM); Albumin 3.2 g/dL (3.5-5.0); Alcohol <10 mg/dL; Alkaline Phosphatase 112 U/L (38-126); Anion Gap 6 mmol/L; Blood Urea Nitrogen 15 mg/dL (7-17); Carbon Dioxide 22 mmol/L (22-30); Chloride 115 mmol/L (98-107); Glucose 192 mg/dL (74-99); Non-African American GFR(CKD) 23 (>60 ml/min/1.73 sqM); Potassium 3.7 mmol/L (3.5-5.1); Sodium 143 mmol/L (137-145); Total Protein 5.7 g/dL (6.3-8.2)
[2023-11-05 16:13] LABS: INR 1.2 (<1.2); Partial Thromboplastin Time 27.2 sec (22.0-30.0); Prothrombin Time 12.8 sec (10.0-12.5)
--- NOTE | 2023-11-05 16:16 | ED ---
Recheck HPI - General Chief Complaint: Recheck/Abnormal Lab/Rx Stated Complaint: Abn labs Time Seen by Provider: 11/05/23 15:30 Source: patient, EMS, RN notes reviewed, old records reviewed Mode of arrival: EMS Limitations: no limitations - History of Present Illness Initial Comments: This is a 68 female to ER for altered mental status. Patient has persistent symptoms here in the ER but this does appear to be her baseline as I have recently seen this patient. Patient is here for elevated ammonia level and sent in for treatment MD Complaint: abnormal lab -: unknown Context: planned re-check, called for abnormal lab result Associated Symptoms: none Treatments Prior to Arrival: other (0) - Related Data Home Medications Medication Instructions Recorded Confirmed Aspirin EC [Ecotrin Low Dose] 81 mg PO DAILY 02/08/19 11/16/23 Ferrous Sulfate [Iron (65 MG 325 mg PO DAILY 07/10/23 11/16/23 Elemental)] Lactulose [Cephulac] 30 gm PO QID 07/10/23 11/16/23 Melatonin 5 mg PO HS 07/10/23 11/16/23 Omeprazole 20 mg PO DAILY@0600 07/10/23 11/16/23 Rifaximin [Xifaxan] 550 mg PO BID 07/10/23 11/16/23 Vitamin E (Dl,Tocopheryl Acet) 400 unit PO DAILY 07/10/23 11/16/23 [Vitamin E (400 Iu = 180 mg)] traZODone HCL [Desyrel] 50 mg PO HS 07/10/23 11/16/23 FLUoxetine HCL 40 mg PO HS 07/15/23 11/16/23 Cholecalciferol [Vitamin D3 (125 125 mcg PO DAILY 08/08/23 11/16/23 Mcg = 5000 Iu)] Vit C/E/Zn/Coppr/Lutein/Zeaxan 1 cap PO BID 08/08/23 11/16/23 [Preservision Areds 2 Softgel] Bumetanide [Bumex] 1 mg PO DAILY@0600 11/01/23 11/16/23 Allergies Allergy/AdvReac Type Severity Reaction Status Date / Time No Known Allergies Allergy Verified 11/16/23 15:00 Review of Systems ROS Statement: Those systems with pertinent positive or pertinent negative responses have been documented in the HPI. ROS Other: All systems not noted in ROS Statement are negative. Past Medical History Past Medical History: Atrial Fibrillation, Heart Failure, COPD, CVA/TIA, GERD/Reflux, Hypertension, Liver Disease, Memory Impairment, Osteoarthritis (OA), Renal Disease, Vascular Disorder Additional Past Medical History / Comment(s): left lower leg above ankle wound- has [facility] managing woundCKD, cirrhosis of liver, pancreatitis, PEPTIC ULCERS, TIA/lesions on brain from spinal meningitis yrs ago(effects speech and balance), carotid artery disease, fluctuating blood pressure, enlarged heart/value issues, edema in joon legs, hx hiatal hernia, chronic venous insufficiency-"hard time healing" History of Any Multi-Drug Resistant Organisms: None Reported Date of last positivie culture/infection: 2011 MDRO Source:: stool Past Surgical History: Cholecystectomy, Heart Catheterization, Joint Replacement Additional Past Surgical History / Comment(s): SURGERY ON SPLEEN, left hip re placement, JOAN Past Anesthesia/Blood Transfusion Reactions: Previous Problems w/ Anesthesia Additional Past Anesthesia/Blood Transfusion Reaction / Comment(s): "trouble waking her up" per brother Past Psychological History: Anxiety, Depression Smoking Status: Current every day smoker Past Alcohol Use History: None Reported Past Drug Use History: None Reported - Past Family History Mother Family Medical History: Cancer Additional Family Medical History / Comment(s): Breast cancer/lung cancer, enlarged heart. Father Family Medical History: Cancer, Deep Vein Thrombosis (DVT) General Exam Limitations: no limitations General appearance: alert, in no apparent distress Head exam: Present: atraumatic, normocephalic, normal inspection Eye exam: Present: normal appearance, PERRL, EOMI. Absent: scleral icterus, conjunctival injection, periorbital swelling ENT exam: Present: normal exam, mucous membranes moist Neck exam: Present: normal inspection. Absent: tenderness, meningismus, lymphadenopathy Respiratory exam: Present: normal lung sounds bilaterally. Absent: respiratory distress, wheezes, rales, rhonchi, stridor Cardiovascular Exam: Present: regular rate, normal rhythm, normal heart sounds. Absent: systolic murmur, diastolic murmur, rubs, gallop, clicks GI/Abdominal exam: Present: soft, normal bowel sounds. Absent: distended, tenderness, guarding, rebound, rigid Extremities exam: Present: normal inspection, full ROM, normal capillary refill. Absent: tenderness, pedal edema, joint swelling, calf tenderness Back exam: Present: normal inspection Neurological exam: Present: alert, oriented X3, CN II-XII intact Psychiatric exam: Present: normal affect, normal mood Skin exam: Present: warm, dry, intact, normal color. Absent: rash Course Vital Signs 11/05/23 11/05/23 11/05/23 15:09 17:00 18:00 Temperature 97.5 F L Pulse Rate 69 68 59 L Respiratory 18 20 18 Rate Blood Pressure 167/84 179/81 186/91 O2 Sat by Pulse 100 96 96 Oximetry 11/05/23 21:00 Temperature Pulse Rate 62 Respiratory 16 Rate Blood Pressure 179/80 O2 Sat by Pulse 95 Oximetry - Reevaluation(s) Reevaluation #1: Medical records reviewed Reevaluation #2: Patient symptoms improved Reevaluation #3: Patient informed of results and questions answered Reevaluation #4: Was pt. sent in by a medical professional or institution (, PA, ELECTRONICS PROCESSOR, urgent care, hospital, or senior care...) When possible be specific @ -no Did you speak to anyone other than the patient for history (EMS, parent, family, police, friend...)? What history was obtained from this source @ -no Did you review nursing and triage notes (agree or disagree)? Why? @ -agree Are old charts reviewed (outside hosp., previous admission, EMS record, old EKG, old radiological studies, urgent care reports/EKG's, senior care records)? Report findings @ -yes Differential Diagnosis (chest pain, altered mental status, abdominal pain women, abdominal pain men, vaginal bleeding, weakness, fever, dyspnea, syncope, headache, dizziness, GI bleed, back pain, seizure, CVA, palpatations, mental health, musculoskeletal)? @ -prior EKG interpreted by me (3pts min.). @ -no X-rays interpreted by me (1pt min.). @ -no CT interpreted by me (1pt min.). @ -no U/S interpreted by me (1pt. min.). @ -no What testing was considered but not performed or refused? (CT, X-rays, U/S, labs)? Why? @ -none What meds were considered but not given or refused? Why? @ -none Did you discuss the management of the patient with other professionals (professionals i.e. , PA, ELECTRONICS PROCESSOR, lab, RT, psych nurse, social worker health services, java software architect, teacher, cash management officer, director of casework)? Give summary @ -no Was smoking cessation discussed for >3mins.? @ -no Was critical care preformed (if so, how long)? @ -no Were there social determinants of health that impacted care today? How? (Homelessness, low income, unemployed, alcoholism, drug addiction, transportation, low edu. Level, literacy, decrease access to med. care, half-way, rehab)? @ -none Was there de-escalation of care discussed even if they declined (Discuss DNR or withdrawal of care, Hospice)? DNR status @ -no What co-morbidities impacted this encounter? (DM, HTN, Smoking, COPD, CAD, Cancer, CVA, ARF, Chemo, Hep., AIDS, mental health diagnosis, sleep apnea, morbid obesity)? @ -none Was patient admitted / discharged? Hospital course, mention meds given and route, prescriptions, significant lab abnormalities, going to OR and other pertinent info. @ - 68 female presents for elevated ammonia level with normal lab testing here in the ER patient can be discharged home acting appropriately Discharge Undiagnosed new problem with uncertain prognosis? @ -no Drug Therapy requiring intensive monitoring for toxicity (Heparin, Nitro, Insulin, Cardizem)? @ -no Were any procedures done? @ -no Diagnosis/symptom? @ -Normal exam Acute, or Chronic, or Acute on Chronic? @ -Acute Uncomplicated (without systemic symptoms) or Complicated (systemic symptoms)? @ -Complicated Side effects of treatment? @ -no Exacerbation, Progression, or Severe Exacerbation? @ -exacerbation Poses a threat to life or bodily function? How? (Chest pain, USA, CA, pneumonia, PE, COPD, DKA, ARF, appy, cholecystitis, CVA, Diverticulitis, Homicidal, Suicidal, threat to staff... and all critical care pts) @ -no Medical Decision Making - Medical Decision Making 68 female presents for elevated ammonia level with normal lab testing here in the ER patient can be discharged home acting appropriately - Lab Data Result diagrams: 11/05/23 15:34 11/05/23 15:34 Lab Results 11/05/23 11/05/23 11/05/23 Range/Units 15:34 15:34 15:34 WBC 6.0 (3.8-10.6) k/uL RBC 3.17 L (3.80-5.40) m/uL Hgb 10.0 L (11.4-16.0) gm/dL Hct 32.4 L (34.0-46.0) % MCV 102.3 H (80.0-100.0) fL MCH 31.6 (25.0-35.0) pg MCHC 30.9 L (31.0-37.0) g/dL RDW 15.3 (11.5-15.5) % Plt Count 177 (150-450) k/uL MPV 10.0 Neutrophils % (Manual) 46 % Lymphocytes % (Manual) 40 % Monocytes % (Manual) 5 % Eosinophils % (Manual) 9 % Neutrophils # (Manual) 2.76 (1.3-7.7) k/uL Lymphocytes # (Manual) 2.40 (1.0-4.8) k/uL Monocytes # (Manual) 0.30 (0-1.0) k/uL Eosinophils # (Manual) 0.54 (0-0.7) k/uL Nucleated RBCs 0 (0-0) /100 WBC Manual Slide Review Performed Hypochromasia Marked Poikilocytosis (manual Present Macrocytosis Slight Target Cells Present Ovalocytes Present Fragmented RBCs Present PT 12.8 H (10.0-12.5) sec INR 1.2 H (<1.2) APTT 27.2 (22.0-30.0) sec Sodium 143 (137-145) mmol/L Potassium 3.7 (3.5-5.1) mmol/L Chloride 115 H (98-107) mmol/L Carbon Dioxide 22 (22-30) mmol/L Anion Gap 6 mmol/L BUN 15 (7-17) mg/dL Creatinine 2.16 H (0.52-1.04) mg/dL Est GFR (CKD-EPI)AfAm 27 (>60 ml/min/1.73 sqM) Est GFR (CKD-EPI)NonAf 23 (>60 ml/min/1.73 sqM) Glucose 192 H (74-99) mg/dL POC Glucose (mg/dL) (70-110) mg/dL POC Glu Asset Protection Lead ID Calcium 9.0 (8.4-10.2) mg/dL Total Bilirubin 1.0 (0.2-1.3) mg/dL AST 52 H (14-36) U/L ALT 33 (4-34) U/L Alkaline Phosphatase 112 (38-126) U/L Ammonia (<30) umol/L Total Protein 5.7 L (6.3-8.2) g/dL Albumin 3.2 L (3.5-5.0) g/dL Urine Opiates Screen (NotDetected) Ur Oxycodone Screen (NotDetected) Urine Methadone Screen (NotDetected) Ur Barbiturates Screen (NotDetected) U Tricyclic Antidepress (NotDetected) Ur Phencyclidine Scrn (NotDetected) Ur Amphetamines Screen (NotDetected) U Methamphetamines Scrn (NotDetected) U Benzodiazepines Scrn (NotDetected) Urine Cocaine Screen (NotDetected) U Marijuana (THC) Screen (NotDetected) Serum Alcohol <10 mg/dL 11/05/23 11/05/23 11/05/23 Range/Units 15:38 15:44 17:15 WBC (3.8-10.6) k/uL RBC (3.80-5.40) m/uL Hgb (11.4-16.0) gm/dL Hct (34.0-46.0) % MCV (80.0-100.0) fL MCH (25.0-35.0) pg MCHC (31.0-37.0) g/dL RDW (11.5-15.5) % Plt Count (150-450) k/uL MPV Neutrophils % (Manual) % Lymphocytes % (Manual) % Monocytes % (Manual) % Eosinophils % (Manual) % Neutrophils # (Manual) (1.3-7.7) k/uL Lymphocytes # (Manual) (1.0-4.8) k/uL Monocytes # (Manual) (0-1.0) k/uL Eosinophils # (Manual) (0-0.7) k/uL Nucleated RBCs (0-0) /100 WBC Manual Slide Review Hypochromasia Poikilocytosis (manual Macrocytosis Target Cells Ovalocytes Fragmented RBCs PT (10.0-12.5) sec INR (<1.2) APTT (22.0-30.0) sec Sodium (137-145) mmol/L Potassium (3.5-5.1) mmol/L Chloride (98-107) mmol/L Carbon Dioxide (22-30) mmol/L Anion Gap mmol/L BUN (7-17) mg/dL Creatinine (0.52-1.04) mg/dL Est GFR (CKD-EPI)AfAm (>60 ml/min/1.73 sqM) Est GFR (CKD-EPI)NonAf (>60 ml/min/1.73 sqM) Glucose (74-99) mg/dL POC Glucose (mg/dL) 169 H (70-110) mg/dL POC Glu Asset Protection Lead ID September, Calcium (8.4-10.2) mg/dL Total Bilirubin (0.2-1.3) mg/dL AST (14-36) U/L ALT (4-34) U/L Alkaline Phosphatase (38-126) U/L Ammonia 10 (<30) umol/L Total Protein (6.3-8.2) g/dL Albumin (3.5-5.0) g/dL Urine Opiates Screen Not Detected (NotDetected) Ur Oxycodone Screen Not Detected (NotDetected) Urine Methadone Screen Not Detected (NotDetected) Ur Barbiturates Screen Not Detected (NotDetected) U Tricyclic Antidepress Not Detected (NotDetected) Ur Phencyclidine Scrn Not Detected (NotDetected) Ur Amphetamines Screen Not Detected (NotDetected) U Methamphetamines Scrn Not Detected (NotDetected) U Benzodiazepines Scrn Not Detected (NotDetected) Urine Cocaine Screen Not Detected (NotDetected) U Marijuana (THC) Screen Not Detected (NotDetected) Serum Alcohol mg/dL 11/05/23 Range/Units 18:23 WBC (3.8-10.6) k/uL RBC (3.80-5.40) m/uL Hgb (11.4-16.0) gm/dL Hct (34.0-46.0) % MCV (80.0-100.0) fL MCH (25.0-35.0) pg MCHC (31.0-37.0) g/dL RDW (11.5-15.5) % Plt Count (150-450) k/uL MPV Neutrophils % (Manual) % Lymphocytes % (Manual) % Monocytes % (Manual) % Eosinophils % (Manual) % Neutrophils # (Manual) (1.3-7.7) k/uL Lymphocytes # (Manual) (1.0-4.8) k/uL Monocytes # (Manual) (0-1.0) k/uL Eosinophils # (Manual) (0-0.7) k/uL Nucleated RBCs (0-0) /100 WBC Manual Slide Review Hypochromasia Poikilocytosis (manual Macrocytosis Target Cells Ovalocytes Fragmented RBCs PT (10.0-12.5) sec INR (<1.2) APTT (22.0-30.0) sec Sodium (137-145) mmol/L Potassium (3.5-5.1) mmol/L Chloride (98-107) mmol/L Carbon Dioxide (22-30) mmol/L Anion Gap mmol/L BUN (7-17) mg/dL Creatinine (0.52-1.04) mg/dL Est GFR (CKD-EPI)AfAm (>60 ml/min/1.73 sqM) Est GFR (CKD-EPI)NonAf (>60 ml/min/1.73 sqM) Glucose (74-99) mg/dL POC Glucose (mg/dL) (70-110) mg/dL POC Glu Asset Protection Lead ID Calcium (8.4-10.2) mg/dL Total Bilirubin (0.2-1.3) mg/dL AST (14-36) U/L ALT (4-34) U/L Alkaline Phosphatase (38-126) U/L Ammonia 17 (<30) umol/L Total Protein (6.3-8.2) g/dL Albumin (3.5-5.0) g/dL Urine Opiates Screen (NotDetected) Ur Oxycodone Screen (NotDetected) Urine Methadone Screen (NotDetected) Ur Barbiturates Screen (NotDetected) U Tricyclic Antidepress (NotDetected) Ur Phencyclidine Scrn (NotDetected) Ur Amphetamines Screen (NotDetected) U Methamphetamines Scrn (NotDetected) U Benzodiazepines Scrn (NotDetected) Urine Cocaine Screen (NotDetected) U Marijuana (THC) Screen (NotDetected) Serum Alcohol mg/dL - EKG Data -: EKG Interpreted by Me (EKG is sinus 62 ID 180 QRS 94 QTc 477) Disposition Clinical Impression: Normal exam Disposition: HOME SELF-CARE Condition: Good Instructions (If sedation given, give patient instructions): Normal Exam (ED) Is patient prescribed a controlled substance at d/c from ED?: No Referrals: Samantha Wright DO [Primary Care Provider] - 1-2 days Time of Disposition: 20:00
[2023-11-05 16:55] LABS: Eosinophils # (M) 0.54 k/uL (0-0.7); Neutrophils # (M) 2.76 k/uL (1.3-7.7); Neutrophils % (M) 46 %; Nucleated Red Blood Cells 0 /100 WBC (0-0); Total Cells Counted 100
[2023-11-05 16:56] LABS: Ovalocytes Present; Poikilocytosis (M) Present; RBC Fragments Present; Target Cells Present
[2023-11-05 17:20] LABS: Amphetamine Screen,Urine Not Detected (NotDetected); Barbiturate Screen,Urine Not Detected (NotDetected); Benzodiazepines Screen,Urine Not Detected (NotDetected); Cocaine Screen,Urine Not Detected (NotDetected); Methadone Screen, Urine Not Detected (NotDetected); Opiate Screen,Urine Not Detected (NotDetected); Oxycodone Screen, Urine Not Detected (NotDetected); Phencyclidine Screen,Urine Not Detected (NotDetected); Tricyclic Antidepressant,Urine Not Detected (NotDetected); Urn Cannabinoid Scrn Not Detected (NotDetected)
[2023-11-05] MEDS: LORazepam 2 MG/ML INJ IV STA (18:35)
[2023-11-05 21:09] VITALS: BP 179/80; PULSE 62; RESP 16
== END 2023-11-05 22:30 | disposition home or self-care (01) ==
LOC: EC 15:06
DX: E72.20 Disorder of urea cycle metabolism, unspecified (principal); F17.200 Nicotine dependence, unspecified, uncomplicated; Z86.73 Personal history of transient ischemic attack (TIA), and cerebral infarction without residual deficits
CPT/HCPCS: 36415; 93005; 80053; 82140; 85025; 85610; 85730; 80306; 99284; G0480; 80320

== ENCOUNTER 2023-11-16 14:49 | Inpatient (IN) | payer MEDICARE, OTHER ==
[2023-11-16 16:04] LABS: Basophils # (A) 0.1 k/uL (0-0.2); Basophils % (A) 1 %; Eosinophils # (A) 0.4 k/uL (0-0.7); Eosinophils % (A) 6 %; HCT 36.4 % (34.0-46.0); HGB 11.5 gm/dL (11.4-16.0); Hypochromasia Slight; Lymphocytes # (A) 1.9 k/uL (1.0-4.8); Lymphocytes % (A) 25 %; MCH 32.6 pg (25.0-35.0); MCHC 31.6 g/dL (31.0-37.0); MCV 103.2 fL (80.0-100.0); Macrocytosis Slight; Mean Platelet Volume 9.2; Monocytes # (A) 0.5 k/uL (0-1.0); Monocytes % (A) 7 %; Neutrophils # (A) 4.6 k/uL (1.3-7.7); Neutrophils % (A) 60 %; Platelet Count 190 k/uL (150-450); RBC 3.53 m/uL (3.80-5.40); WBC 7.7 k/uL (3.8-10.6)
[2023-11-16 16:13] LABS: INR 1.1 (<1.2); Partial Thromboplastin Time 23.8 sec (22.0-30.0); Prothrombin Time 11.4 sec (10.0-12.5)
[2023-11-16 16:14] LABS: ALT 28 U/L (4-34); AST 41 U/L (14-36); African American GFR (CKD) 24 (>60 ml/min/1.73 sqM); Albumin 3.4 g/dL (3.5-5.0); Alkaline Phosphatase 154 U/L (38-126); Anion Gap 8 mmol/L; Blood Urea Nitrogen 24 mg/dL (7-17); Calcium 9.7 mg/dL (8.4-10.2); Carbon Dioxide 22 mmol/L (22-30); Chloride 115 mmol/L (98-107); Glucose 135 mg/dL (74-99); Non-African American GFR(CKD) 21 (>60 ml/min/1.73 sqM); Potassium 4.1 mmol/L (3.5-5.1); Sodium 145 mmol/L (137-145); Total Bilirubin 0.8 mg/dL (0.2-1.3); Total Protein 6.2 g/dL (6.3-8.2)
--- NOTE | 2023-11-16 16:19 | ED ---
General Adult HPI - General Chief complaint: Altered Mental Status Stated complaint: AMS Time Seen by Provider: 11/16/23 16:05 Source: patient, family, EMS, RN notes reviewed, old records reviewed Mode of arrival: EMS - History of Present Illness Initial comments: Patient is a 68-year-old female presents emergency department for altered mental status. Presents from her nursing facility, [facility] on [facility]. Has a history remarkable for atrial fibrillation, liver cirrhosis, hyperammonemia, CHF, CKD, COPD, hypertension. Is on lactulose. Has had some confusion over the last few days. Usually is Aand O x 3-4. Currently is ANO x 2-3. Recent lab work showed elevated ammonia level. Presents for further evaluation. Patient is currently in AOx3 for me. Workup was started prior to me evaluating the patient. Denies any pain, fevers, chills, shortness of breath. Does endorse mild cough that is nonproductive. Denies any headaches. Presents for further evaluation at this time. Patient's brother is at bedside and assist with patient's past medical history. Patient also states she is mildly nauseous. - Related Data Home Medications Medication Instructions Recorded Confirmed Aspirin EC [Ecotrin Low Dose] 81 mg PO DAILY 02/08/19 11/16/23 Ferrous Sulfate [Iron (65 MG 325 mg PO DAILY 07/10/23 11/16/23 Elemental)] Lactulose [Cephulac] 30 gm PO QID 07/10/23 11/16/23 Melatonin 5 mg PO HS 07/10/23 11/16/23 Omeprazole 20 mg PO DAILY@0600 07/10/23 11/16/23 Rifaximin [Xifaxan] 550 mg PO BID 07/10/23 11/16/23 Vitamin E (Dl,Tocopheryl Acet) 400 unit PO DAILY 07/10/23 11/16/23 [Vitamin E (400 Iu = 180 mg)] traZODone HCL [Desyrel] 50 mg PO HS 07/10/23 11/16/23 FLUoxetine HCL 40 mg PO HS 07/15/23 11/16/23 Cholecalciferol [Vitamin D3 (125 125 mcg PO DAILY 08/08/23 11/16/23 Mcg = 5000 Iu)] Vit C/E/Zn/Coppr/Lutein/Zeaxan 1 cap PO BID 08/08/23 11/16/23 [Preservision Areds 2 Softgel] Bumetanide [Bumex] 1 mg PO DAILY@0600 11/01/23 11/16/23 Allergies Allergy/AdvReac Type Severity Reaction Status Date / Time No Known Allergies Allergy Verified 11/16/23 15:00 Review of Systems ROS Statement: Those systems with pertinent positive or pertinent negative responses have been documented in the HPI. Review of Systems: CONST: Denies fever EYES: Denies blurry vision ENT: Denies nasal congestion C/V: Denies Chest pain RESP: Denies shortness of breath GI: Denies abdominal pain : Denies dysuria SKIN: Denies rash. MSK: Denies joint pain. NEURO: Denies headache ROS Other: All systems not noted in ROS Statement are negative. 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 spinal meningitis yrs ago(effects speech and balance), carotid artery disease, fluctuating blood pressure, enlarged heart/value issues, edema in joon legs, hx hiatal hernia, chronic venous insufficiency-"hard time healing" History of Any Multi-Drug Resistant Organisms: None Reported Date of last positivie culture/infection: 2011 MDRO Source:: stool Past Surgical History: Cholecystectomy, Heart Catheterization, Joint Replacement Additional Past Surgical History / Comment(s): SURGERY ON SPLEEN, left hip replacement, JONA Past Anesthesia/Blood Transfusion Reactions: Previous Problems w/ Anesthesia Additional Past Anesthesia/Blood Transfusion Reaction / Comment(s): "trouble wak ing her up" per brother Past Psychological History: Anxiety, Depression Smoking Status: Current every day smoker Past Alcohol Use History: None Reported Past Drug Use History: None Reported - Past Family History Mother Family Medical History: Cancer Additional Family Medical History / Comment(s): Breast cancer/lung cancer, enlarged heart. Father Family Medical History: Cancer, Deep Vein Thrombosis (DVT) General Exam - General Exam Comments Initial Comments: General: Appears in no acute distress. HEAD: Normal with no signs of head trauma. EYES: PERRLA, EOMI, conjunctiva normal, no discharge. ENT: Hearing grossly intact, normal oropharynx. RESPIRATORY: Clear breath sounds bilaterally. No wheezes, rales, or rhonchi. C/V: Regular rate and rhythm. S1 and S2 auscultated, no edema, peripheral pulses 2+ and intact throughout ABD: Abd is soft, nontender, nondistended EXT: Normal range of motion, no obvious deformity SKIN: No rashes or lesions observed on exposed skin. NEURO: Alert and oriented x 4. Cranial nerves II-XII intact. No focal sensory or strength deficits. Course Vital Signs 11/16/23 11/16/23 11/16/23 14:53 15:11 16:41 Temperature 97.9 F 97.9 F Pulse Rate 60 58 L 52 L Respiratory 16 16 16 Rate Blood Pressure 191/87 187/99 O2 Sat by Pulse 99 100 Oximetry 11/16/23 11/16/23 11/16/23 17:07 18:00 22:05 Temperature Pulse Rate 53 L 57 L 57 L Respiratory 16 16 18 Rate Blood Pressure 183/85 183/79 154/74 O2 Sat by Pulse 100 95 98 Oximetry Medical Decision Making - Medical Decision Making Was pt. sent in by a medical professional or institution (, PA, [employer], urgent care, hospital, or assisted...) When possible be specific @ -Sent from nursing [facility] for altered mentation and elevated ammonia level Did you speak to anyone other than the patient for history (EMS, parent, family, police, friend...)? What history was obtained from this source @ -Spoke with patient's brother who states that patient has had intermittent conversation confusion when he has seen her lately. States this is typical when her ammonia is elevated. Did you review nursing and triage notes (agree or disagree)? Why? @ -I reviewed and agree with nursing and triage notes Were old charts reviewed (outside hosp., previous admission, EMS record, old EKG, old radiological studies, urgent care reports/EKG's, assisted records)? Report findings @ -Old charts reviewed including EKG from November 05, 2023. No significant change. QT prolongation was present at that time as well. Seems to be chronic. Prolonged QTc goes back as far at least of June 2023. Differential Diagnosis (chest pain, altered mental status, abdominal pain women, abdominal pain men, vaginal bleeding, weakness, fever, dyspnea, syncope, headache, dizziness, GI bleed, back pain, seizure, CVA, palpatations, mental health, musculoskeletal)? @ -Differential Altered Mental Status: Hypoglycemia, DKA, hypercapnia, ETOH, overdose, CO poisoning, trauma, myxedema coma, HTN encephalopathy, infection, encephalitis, psychosis, intercranial hemorrhage, hepatic encephalopathy, meningitis, CVA, this is not meant to be an all-inclusive list EKG interpreted by me (3pts min.). @ -As above X-rays interpreted by me (1pt min.). @ -Chest x-ray reveals no obvious acute cardiopulmonary process. CT interpreted by me (1pt min.). @ -CT brain reveals no obvious acute intracranial process. Chronic degenerative changes present. U/S interpreted by me (1pt. min.). @ -None done What testing was considered but not performed or refused? (CT, X-rays, U/S, labs)? Why? @ -None What meds were considered but not given or refused? Why? @ -None Did you discuss the management of the patient with other professionals (professionals i.e. , PA, [employer], lab, RT, psych nurse, health care social worker, transitions manager, teacher, nursing officer, lead case manager)? Give summary @ -No Was smoking cessation discussed for >3mins.? @ -No Was critical care preformed (if so, how long)? @ -No Were there social determinants of health that impacted care today? How? (Homelessness, low income, unemployed, alcoholism, drug addiction, transportation, low edu. Level, literacy, decrease access to med. care, senior care, rehab)? @ -No Was there de-escalation of care discussed even if they declined (Discuss DNR or withdrawal of care, Hospice)? DNR status @ -Confirmed patient is DNR/DNI. Confirmed via paperwork from nursing facility as well as discussion with brother and patient. What co-morbidities impacted this encounter? (DM, HTN, Smoking, COPD, CAD, Cancer, CVA, ARF, Chemo, Hep., AIDS, mental health diagnosis, sleep apnea, morbid obesity)? @ -Liver cirrhosis, hyperammonemia Was patient admitted / discharged? Hospital course, mention meds given and route, prescriptions, significant lab abnormalities, going to OR and other pertinent info. @ -Patient presents with altered mentation. Currently is not altered but it has been intermittent over the last few days. Found to have high ammonia levels at her nursing facility and sent here for further evaluation. Vital signs are within acceptable limits. We will obtain altered mentation workup including chest x-ray, CT, EKG. Patient in agreement this plan. Patient's brother also in agreement this plan. Patient is slightly hypertensive but otherwise no acute complaints. EKG shows prolonged QT which appears to be chronic for the patient as it was seen earlier this month as well.Prolonged QTc goes back as far at least of June 2023. Patient will be given a dose of magnesium we will obtain a magnesium level. Patient's labs also remarkable for elevated ammonia level of 54. Elevated BUN and creatinine in the setting of CKD at her baseline range. UA concerning for possible borderline UTI and patient will be administered IV antibiotics. Urine culture sent. Imaging returned unremarkable. Patient will be admitted at this time. I spoke with the admitting team, Dr. Delong who accepted the admission. We will continue with lactulose therapy. Will continue with antibiotics. Patient and patient's brother in agreement this plan. I did confirm that patient is DNR with patient as well as her brother. There is paperwork with the paperwork from nursing facility. Undiagnosed new problem with uncertain prognosis? @ -No Drug Therapy requiring intensive monitoring for toxicity (Heparin, Nitro, Insulin, Cardizem)? @ -No Were any procedures done? @ -No Diagnosis/symptom? @ -Altered mental status in the setting of hyperammonemia in the setting of liver cirrhosis, UTI Acute, or Chronic, or Acute on Chronic? @ -Acute Uncomplicated (without systemic symptoms) or Complicated (systemic symptoms)? @ -Complicated Side effects of treatment? @ -No Exacerbation, Progression, or Severe Exacerbation? @ -No Poses a threat to life or bodily function? How? (Chest pain, [place], [place], pneumonia, PE, COPD, DKA, ARF, appy, cholecystitis, CVA, Diverticulitis, Homicidal, Suicidal, threat to staff... and all critical care pts) @ -Yes Diagnosis/symptom? @ -Prolonged QT interval Acute, or Chronic, or Acute on Chronic? @ -Seems to be acute on chronic Uncomplicated (without systemic symptoms) or Complicated (systemic symptoms)? @ -Uncomplicated Side effects of treatment? @ -None Exacerbation, Progression, or Severe Exacerbation] @ -No Poses a threat to life or bodily function? @ -Potentially, yes - Lab Data Result diagrams: 11/16/23 15:25 11/16/23 15:53 Lab Results 11/16/23 11/16/23 11/16/23 Range/Units 15:25 15:25 15:53 WBC 7.7 (3.8-10.6) k/uL RBC 3.53 L (3.80-5.40) m/uL Hgb 11.5 (11.4-16.0) gm/dL Hct 36.4 (34.0-46.0) % MCV 103.2 H (80.0-100.0) fL MCH 32.6 (25.0-35.0) pg MCHC 31.6 (31.0-37.0) g/dL RDW 15.0 (11.5-15.5) % Plt Count 190 (150-450) k/uL MPV 9.2 Neutrophils % 60 % Lymphocytes % 25 % Monocytes % 7 % Eosinophils % 6 % Basophils % 1 % Neutrophils # 4.6 (1.3-7.7) k/uL Lymphocytes # 1.9 (1.0-4.8) k/uL Monocytes # 0.5 (0-1.0) k/uL Eosinophils # 0.4 (0-0.7) k/uL Basophils # 0.1 (0-0.2) k/uL Hypochromasia Slight Macrocytosis Slight PT 11.4 (10.0-12.5) sec INR 1.1 (<1.2) APTT 23.8 (22.0-30.0) sec Sodium (137-145) mmol/L Potassium (3.5-5.1) mmol/L Chloride (98-107) mmol/L Carbon Dioxide (22-30) mmol/L Anion Gap mmol/L BUN (7-17) mg/dL Creatinine (0.52-1.04) mg/dL Est GFR (CKD-EPI)AfAm (>60 ml/min/1.73 sqM) Est GFR (CKD-EPI)NonAf (>60 ml/min/1.73 sqM) Glucose (74-99) mg/dL POC Glucose (mg/dL) (70-110) mg/dL POC Glu Mold Presser ID Calcium (8.4-10.2) mg/dL Magnesium (1.6-2.3) mg/dL Total Bilirubin (0.2-1.3) mg/dL AST (14-36) U/L ALT (4-34) U/L Alkaline Phosphatase (38-126) U/L Ammonia (<30) umol/L Total Protein (6.3-8.2) g/dL Albumin (3.5-5.0) g/dL Urine Color Yellow Urine Appearance Turbid H (Clear) Urine pH 5.5 (5.0-8.0) Ur Specific [place] 1.017 (1.001-1.035) Urine Protein Trace H (Negative) Urine Glucose (UA) Negative (Negative) Urine Ketones Negative (Negative) Urine Blood Negative (Negative) Urine Nitrite Negative (Negative) Urine Bilirubin Negative (Negative) Urine Urobilinogen <2.0 (<2.0) mg/dL Ur Leukocyte Esterase Large H (Negative) Urine RBC 24 H (0-5) /hpf Urine WBC 64 H (0-5) /hpf Urine WBC Clumps Rare H (None) /hpf Ur Squamous Epith Cells 7 H (0-4) /hpf Urine Bacteria Few H (None) /hpf Hyaline Casts 6 H (0-2) /lpf Urine Mucus Rare H (None) /hpf Urine Opiates Screen Not Detected (NotDetected) Ur Oxycodone Screen Not Detected (NotDetected) Urine Methadone Screen Not Detected (NotDetected) Ur Barbiturates Screen Not Detected (NotDetected) U Tricyclic Antidepress Not Detected (NotDetected) Ur Phencyclidine Scrn Not Detected (NotDetected) Ur Amphetamines Screen Not Detected (NotDetected) U Methamphetamines Scrn Not Detected (NotDetected) U Benzodiazepines Scrn Detected H (NotDetected) Urine Cocaine Screen Not Detected (NotDetected) U Marijuana (THC) Screen Not Detected (NotDetected) Influenza Type A (PCR) (Not Detectd) Influenza Type B (PCR) (Not Detectd) RSV (PCR) (Not Detectd) SARS-CoV-2 (PCR) (Not Detectd) 07/21/24 07/21/24 07/21/24 Range/Units 15:53 15:53 15:53 WBC (3.8-10.6) k/uL RBC (3.80-5.40) m/uL Hgb (11.4-16.0) gm/dL Hct (34.0-46.0) % MCV (80.0-100.0) fL MCH (25.0-35.0) pg MCHC (31.0-37.0) g/dL RDW (11.5-15.5) % Plt Count (150-450) k/uL MPV Neutrophils % % Lymphocytes % % Monocytes % % Eosinophils % % Basophils % % Neutrophils # (1.3-7.7) k/uL Lymphocytes # (1.0-4.8) k/uL Monocytes # (0-1.0) k/uL Eosinophils # (0-0.7) k/uL Basophils # (0-0.2) k/uL Hypochromasia Macrocytosis PT (10.0-12.5) sec INR (<1.2) APTT (22.0-30.0) sec Sodium 145 (137-145) mmol/L Potassium 4.1 (3.5-5.1) mmol/L Chloride 115 H (98-107) mmol/L Carbon Dioxide 22 (22-30) mmol/L Anion Gap 8 mmol/L BUN 24 H (7-17) mg/dL Creatinine 2.38 H (0.52-1.04) mg/dL Est GFR (CKD-EPI)AfAm 24 (>60 ml/min/1.73 sqM) Est GFR (CKD-EPI)NonAf 21 (>60 ml/min/1.73 sqM) Glucose 135 H (74-99) mg/dL POC Glucose (mg/dL) (70-110) mg/dL POC Glu Mold Presser ID Calcium 9.7 (8.4-10.2) mg/dL Magnesium 2.4 H (1.6-2.3) mg/dL Total Bilirubin 0.8 (0.2-1.3) mg/dL AST 41 H (14-36) U/L ALT 28 (4-34) U/L Alkaline Phosphatase 154 H (38-126) U/L Ammonia 54 H (<30) umol/L Total Protein 6.2 L (6.3-8.2) g/dL Albumin 3.4 L (3.5-5.0) g/dL Urine Color Urine Appearance (Clear) Urine pH (5.0-8.0) Ur Specific [place] (1.001-1.035) Urine Protein (Negative) Urine Glucose (UA) (Negative) Urine Ketones (Negative) Urine Blood (Negative) Urine Nitrite (Negative) Urine Bilirubin (Negative) Urine Urobilinogen (<2.0) mg/dL Ur Leukocyte Esterase (Negative) Urine RBC (0-5) /hpf Urine WBC (0-5) /hpf Urine WBC Clumps (None) /hpf Ur Squamous Epith Cells (0-4) /hpf Urine Bacteria (None) /hpf Hyaline Casts (0-2) /lpf Urine Mucus (None) /hpf Urine Opiates Screen (NotDetected) Ur Oxycodone Screen (NotDetected) Urine Methadone Screen (NotDetected) Ur Barbiturates Screen (NotDetected) U Tricyclic Antidepress (NotDetected) Ur Phencyclidine Scrn (NotDetected) Ur Amphetamines Screen (NotDetected) U Methamphetamines Scrn (NotDetected) U Benzodiazepines Scrn (NotDetected) Urine Cocaine Screen (NotDetected) U Marijuana (THC) Screen (NotDetected) Influenza Type A (PCR) (Not Detectd) Influenza Type B (PCR) (Not Detectd) RSV (PCR) (Not Detectd) SARS-CoV-2 (PCR) (Not Detectd) 11/16/23 11/16/23 Range/Units 16:48 16:53 WBC (3.8-10.6) k/uL RBC (3.80-5.40) m/uL Hgb (11.4-16.0) gm/dL Hct (34.0-46.0) % MCV (80.0-100.0) fL MCH (25.0-35.0) pg MCHC (31.0-37.0) g/dL RDW (11.5-15.5) % Plt Count (150-450) k/uL MPV Neutrophils % % Lymphocytes % % Monocytes % % Eosinophils % % Basophils % % Neutrophils # (1.3-7.7) k/uL Lymphocytes # (1.0-4.8) k/uL Monocytes # (0-1.0) k/uL Eosinophils # (0-0.7) k/uL Basophils # (0-0.2) k/uL Hypochromasia Macrocytosis PT (10.0-12.5) sec INR (<1.2) APTT (22.0-30.0) sec Sodium (137-145) mmol/L Potassium (3.5-5.1) mmol/L Chloride (98-107) mmol/L Carbon Dioxide (22-30) mmol/L Anion Gap mmol/L BUN (7-17) mg/dL Creatinine (0.52-1.04) mg/dL Est GFR (CKD-EPI)AfAm (>60 ml/min/1.73 sqM) Est GFR (CKD-EPI)NonAf (>60 ml/min/1.73 sqM) Glucose (74-99) mg/dL POC Glucose (mg/dL) 107 (70-110) mg/dL POC Glu Mold Presser ID Seferino Miranda Calcium (8.4-10.2) mg/dL Magnesium (1.6-2.3) mg/dL Total Bilirubin (0.2-1.3) mg/dL AST (14-36) U/L ALT (4-34) U/L Alkaline Phosphatase (38-126) U/L Ammonia (<30) umol/L Total Protein (6.3-8.2) g/dL Albumin (3.5-5.0) g/dL Urine Color Urine Appearance (Clear) Urine pH (5.0-8.0) Ur Specific [place] (1.001-1.035) Urine Protein (Negative) Urine Glucose (UA) (Negative) Urine Ketones (Negative) Urine Blood (Negative) Urine Nitrite (Negative) Urine Bilirubin (Negative) Urine Urobilinogen (<2.0) mg/dL Ur Leukocyte Esterase (Negative) Urine RBC (0-5) /hpf Urine WBC (0-5) /hpf Urine WBC Clumps (None) /hpf Ur Squamous Epith Cells (0-4) /hpf Urine Bacteria (None) /hpf Hyaline Casts (0-2) /lpf Urine Mucus (None) /hpf Urine Opiates Screen (NotDetected) Ur Oxycodone Screen (NotDetected) Urine Methadone Screen (NotDetected) Ur Barbiturates Screen (NotDetected) U Tricyclic Antidepress (NotDetected) Ur Phencyclidine Scrn (NotDetected) Ur Amphetamines Screen (NotDetected) U Methamphetamines Scrn (NotDetected) U Benzodiazepines Scrn (NotDetected) Urine Cocaine Screen (NotDetected) U Marijuana (THC) Screen (NotDetected) Influenza Type A (PCR) Not Detected (Not Detectd) Influenza Type B (PCR) Not Detected (Not Detectd) RSV (PCR) Not Detected (Not Detectd) SARS-CoV-2 (PCR) Not Detected (Not Detectd) - EKG Data -: EKG Interpreted by Me EKG Comments: 12-lead Electrocardiogram Interpretation Note EKG was reviewed and interpreted by myself. 12-lead ECG performed at 1512 is interpreted by me as revealing sinus bradycardia at a rate of 57 beats per minute. [place] is normal. ID interval is 182 ms, QRS duration is 92 ms, QTc is prolonged at 490 ms.. There were no ST or T wave abnormalities to suggest myocardial ischemia or injury. R wave progression across the precordium was satisfactory. By my interpretation this EKG is non-diagnostic for acute ischemia. Disposition Clinical Impression: AMS (altered mental status), Hyperammonemia, UTI (urinary tract infection) Disposition: ADMITTED IP TO THIS HOSP Condition: Stable Time of Disposition: 19:46
[2023-11-16] MEDS: SODIUM CHLORIDE 0.9% 500 ML 500 ML IV ONE (16:29)
[2023-11-16] MEDS: ONDANSETRON 4 MG/2 ML VIAL IVP STA (16:29)
[2023-11-16 16:40] LABS: Appearance,Urine Turbid (Clear); Bacteria,Urine Few /hpf; Bilirubin,Urine Negative (Negative); Blood,Urine Negative (Negative); Color,Urine Yellow; Glucose,Urine (UA) Negative (Negative); Hyaline Casts,Urine 6 /lpf (0-2); Ketones,Urine Negative (Negative); Leukocyte Esterase,Urine Large (Negative); Mucus,Urine Rare /hpf; Nitrite,Urine Negative (Negative); PH, Urine 5.5 (5.0-8.0); Protein,Urine Trace (Negative); RBC,Urine 24 /hpf (0-5); Specific Gravity,Urine 1.017 (1.001-1.035); Squamous Epithelial Cell,Urine 7 /hpf (0-4); Urobilinogen,Urine <2.0 mg/dL (<2.0); WBC,Urine 64 /hpf (0-5)
[2023-11-16 16:46] LABS: Amphetamine Screen,Urine Not Detected (NotDetected); Barbiturate Screen,Urine Not Detected (NotDetected); Benzodiazepines Screen,Urine Detected (NotDetected); Cocaine Screen,Urine Not Detected (NotDetected); Methadone Screen, Urine Not Detected (NotDetected); Opiate Screen,Urine Not Detected (NotDetected); Oxycodone Screen, Urine Not Detected (NotDetected); Phencyclidine Screen,Urine Not Detected (NotDetected); Tricyclic Antidepressant,Urine Not Detected (NotDetected); Urn Cannabinoid Scrn Not Detected (NotDetected)
[2023-11-16 16:55] LABS: Glucose,Whole Blood 107 mg/dL (70-110)
--- NOTE | 2023-11-16 17:54 | CT ---
EXAMINATION TYPE: CT brain wo con CT DLP: 1051.1 mGycm, Automated exposure control for dose reduction was used. DATE OF EXAM: 11/16/2023 5:28 PM COMPARISON: 08/08/2023. CLINICAL INDICATION:Female, 68 years old with history of AMS, ams TECHNIQUE: Brain: Axial CT images of the brain were obtained with coronal and sagittal reformats created and rev iewed. Contrast used: None. Oral contrast used: None. FINDINGS: Brain: Extra-axial spaces: No abnormal extra-axial fluid collections. Ventricular system: Dilatation in proportion to cerebral atrophy. Cerebral parenchyma: Cerebral atrophy. No acute intraparenchymal hemorrhage or mass effect. The powers -white junction is well differentiated. Scattered hypoattenuating areas are seen within the white mat ter. Cerebellum: Encephalomalacia the bilateral cerebellar hemispheres. Mass effect: No evidence of midline shift. Intracranial vasculature: unremarkable Soft tissues: Normal. Calvarium/osseous structures: No depressed skull fracture. Paranasal sinuses and mastoid air cells: Mild scattered paranasal sinus disease. Visualized orbits: Orbital contents are intact. IMPRESSION: 1. No acute intracranial process. 2. Nonspecific white matter changes, likely secondary to chronic small vessel ischemic disease. 3. Remote injuries to the cerebellar hemispheres.
--- NOTE | 2023-11-16 18:03 | XR ---
EXAMINATION TYPE: XR chest 2V DATE OF EXAM: 11/16/2023 5:44 PM CLINICAL INDICATION:Female, 68 years old with history of ams; [facility] COMPARISON: 08/08/2023 TECHNIQUE: XR chest 2V Frontal view of the chest. FINDINGS: Lungs/Pleura: There is flattening of the diaphragm with increased lucency of the lungs. No evidence o f pneumothorax, pleural effusion or focal consolidation. Pulmonary vascularity: Unremarkable. Heart/mediastinum: Cardiomediastinal silhouette is unremarkable. Musculoskeletal: No acute osseous pathology. Other findings: None Lines/Tubes: IMPRESSION: 1. No acute cardiopulmonary disease process. 2. COPD changes.
[2023-11-16] MEDS: MAGNESIUM SULFATE-D5W PMX 1 GM in DEXTROSE/WATER 1 100ML.BAG IVPB ONE (18:12)
[2023-11-16] MEDS: LACTULOSE 20 GM/30 ML CUP PO ONE (18:19)
[2023-11-16] MEDS ORDERED: NALOXONE 0.4 MG/ML 1 ML VIAL IV PRN (19:46)
[2023-11-16] MEDS: hydrALAZINE HCL 20 MG/ML 1 ML VIAL IVP STA (21:24)
[2023-11-16] MEDS: LACTULOSE 20 GM/30 ML CUP PO SCH (22:03)
[2023-11-16] MEDS: traZODone HCL 50 MG TAB PO SCH (23:42)
[2023-11-17] MEDS: BUMETANIDE 1 MG TAB PO SCH (08:36)
[2023-11-17] MEDS: ASPIRIN 81 MG PO SCH (08:42)
[2023-11-17 09:17] LABS: Basophils # (A) 0.17 X 10*3/uL (0.00-0.10); Basophils % (A) 2.1 %; Eosinophils # (A) 0.78 X 10*3/uL (0.04-0.35); Eosinophils % (A) 9.5 %; HGB 10.2 g/dL (12.0-15.0); Lymphocytes # (A) 2.32 X 10*3/uL (0.90-5.00); Lymphocytes % (A) 28.3 %; MCH 31.4 pg (27.0-32.0); MCHC 32.9 g/dL (32.0-37.0); MCV 95.4 FL (80.0-97.0); Mean Platelet Volume 11.7 FL (9.5-12.2); Monocytes % (A) 9.8 %; NRBC Per 100 WBC 0 X 10*3/uL (0.00-0.01); Neutrophils # (A) 4.08 X 10*3/uL (1.80-7.70); Neutrophils % (A) 49.8 %; Platelet Count 213 X 10*3/uL (140-440); RBC 3.25 X 10*6/uL (4.10-5.20); RDW 15.5 % (11.5-14.5); WBC 8.19 X 10*3/uL (4.50-10.00)
[2023-11-17 09:50] LABS: ALT 29 U/L (8-44); AST 34 U/L (13-35); Albumin 3.4 g/dL (3.8-4.9); Albumin/Globulin Ratio 1.89 Ratio (1.60-3.17); Alkaline Phosphatase 139 U/L (41-126); BUN/Creat Ratio 10.17 Ratio (12.00-20.00); Blood Urea Nitrogen 23.4 mg/dL (9.0-27.0); Calcium 9.1 mg/dL (8.7-10.3); Carbon Dioxide 20.4 mmol/L (21.6-31.8); Chloride 118 mmol/L (96-109); Globulin 1.8 g/dL (1.6-3.3); Glucose 91 mg/dL (70-110); Potassium 3.2 mmol/L (3.5-5.5); Sodium 148 mmol/L (135-145); Total Bilirubin 0.6 mg/dL (0.3-1.2); Total Protein 5.2 g/dL (6.2-8.2)
--- NOTE | 2023-11-17 13:38 | P.HPIM ---
History of Present Illness H&P Date: 11/17/23 This is a pleasant 68-year-old female with medical history significant for fibrillation, heart failure, COPD, stroke, gastroesophageal reflux disease, hypertension, chronic liver cirrhosis and elevated ammonia levels patient is maintained on lactulose on an outpatient basis. Patient is obtained on R ifaximin also. Patient comes to the hospital with concern for altered mentation she is a permanent resident at [facility]. There was concern for elevation of her ammonia levels and she was sent over to the hospital for further evaluation and treatment. Patient states that prior to this her levels have been better. Patient was found to have a BUN of 24 creatinine of 2.38, ammonia level of 54 on admission. Her urinalysis shows large leukocyte Estrace, not overly suspicious for urinary tract infection. She denies any dysuria urgency burning or discomfort she is having no abdominal pain no nausea vomiting or diarrhea. She states that she is not having any chest pain no shortness of breath no fever or chills. She is positive for benzodiazepines. her viral panel is negative for influenza RSV and COVID. Her brain CT shows no acute intracranial process. There is nonspecific white matter changes likely secondary to chronic small vessel ischemic disease. There are remote injuries to the cerebellar hemispheres. X-ray reveals no acute cardiopulmonary disease process there are COPD changes. Was started on lactulose overnight 30 g 4 times a day and her ammonia level is down to 18. We would recommend to continue on an increased dose of lactulose on discharge with a goal of 2-3 loose bowel movements per day and this patient can return to [facility]. Her mentation is improved she is ev aluated today she is alert and oriented and feels back to her baseline. REVIEW OF SYSTEMS: CONSTITUTIONAL: No fever, no malaise, no fatigue. HEENT: No recent visual problems or hearing problems. Denied any sore throat. CARDIOVASCULAR: No chest pain, orthopnea, PND, no palpitations, no syncope. PULMONARY: No shortness of breath, no cough, no hemoptysis. GASTROINTESTINAL: No diarrhea, no nausea, no vomiting, no abdominal pain. NEUROLOGICAL: No headaches, no weakness, no numbness. HEMATOLOGICAL: Denies any bleeding or petechiae. GENITOURINARY: Denies any burning micturition, frequency, or urgency. MUSCULOSKELETAL/RHEUMATOLOGICAL: Denies any joint pain, swelling, or any muscle pain. ENDOCRINE: Denies any polyuria or polydipsia. The rest of the 14-point review of systems is negative. PHYSICAL EXAMINATION: GENERAL: The patient is alert and oriented x3, not in any acute distress. Well developed, well nourished. HEENT: Pupils are round and equally reacting to light. EOMI. No scleral icterus. No conjunctival pallor. Normocephalic, atraumatic. No pharyngeal erythema. No thyromegaly. CARDIOVASCULAR: S1 and S2 present. No murmurs, rubs, or gallops. PULMONARY: Chest is clear to auscultation, no wheezing or crackles. ABDOMEN: Soft, nontender, nondistended, normoactive bowel sounds. No palpable organomegaly. MUSCULOSKELETAL: No joint swelling or deformity. EXTREMITIES: No cyanosis, clubbing, or pedal edema. NEUROLOGICAL: Gross neurological examination did not reveal any focal deficits. SKIN: No rashes. Assessment and plan Hyperammonemia secondary to chronic liver cirrhosis treated with lactulose ammonia level is down to 18 Altered mental status secondary to acute hepatic encephalopathy secondary to elevated ammonia levels resolved Atrial fibrillation, paroxysmal questionable history - patient is not on any oral anticoagulation History of heart failure, chronic diastolic dysfunction no acute exacerbation on oral bumex. History of COPD with no acute exacerbation History of stroke Gastroesophageal reflux disease maintained on PPI which is resumed. History of hypertension Cirrhosis of the liver Chronic kidney disease stage IIIB at baseline creatinine Carotid artery disease Anxiety/depression Maintained on prozac has been resumed. Chronic nicotine use GI prophylaxis DVT prophylaxis No code Plan Ammonia level has improved down to 18 would recommend to repeat this level in 3 days on an outpatient basis. Patient will continue on oral lactulose 30 g q. times a day scheduled with a goal of 2-3 loose bowel movements per day additionally patient will continue on her oral rifaximin twice a day for the elevated ammonia levels. We would recommend to follow-up with Dr. Crump with GI services on an outpatient basis. Patient can be discharged back to [facility]. The impression and plan of care has been dictated by Ilene Hinkle Nurse Practitioner as directed. Dr. Rudi MD I have performed a history and physical examination and medical decision making of this patient, discussed the same with the dictator, and agree with the dictators assessment and plan as written, documented as a scribe. Based on total visit time, I have performed more than 50% of this visit. Past Medical History Past Medical History: Atrial Fibrillation, Heart Failure, COPD, CVA/TIA, GERD/Reflux, Hypertension, Liver Disease, Memory Impairment, Osteoarthritis (OA), Renal Disease, Vascular Disorder Additional Past Medical History / Comment(s): left lower leg above ankle wound- has [facility] managing woundCKD, cirrhosis of liver, pancreatitis, PEPTIC ULCERS, TIA/lesions on brain from spinal meningitis yrs ago(effects speech and balance), carotid artery disease, fluctuating blood pressure, enlarged heart/value issues, edema in joon legs, hx hiatal hernia, chronic venous insufficiency-"hard time healing" History of Any Multi-Drug Resistant Organisms: None Reported Date of last positivie culture/infection: 2011 MDRO Source:: stool Past Surgical History: Cholecystectomy, Heart Catheterization, Joint Replacement Additional Past Surgical History / Comment(s): SURGERY ON SPLEEN, left hip replacement, JONA Past Anesthesia/Blood Transfusion Reactions: Previous Problems w/ Anesthesia Additional Past Anesthesia/Blood Transfusion Reaction / Comment(s): "trouble waking her up" per brother Past Psychological History: Anxiety, Depression Smoking Status: Current every day smoker Past Alcohol Use History: None Reported Past Drug Use History: None Reported - Past Family History Mother Family Medical History: Cancer Additional Family Medical History / Comment(s): Breast cancer/lung cancer, enlarged heart. Father Family Medical History: Cancer, Deep Vein Thrombosis (DVT) Medications and Allergies Home Medications Medication Instructions Recorded Confirmed Type Aspirin EC [Ecotrin Low Dose] 81 mg PO DAILY 02/08/19 11/16/23 History Ferrous Sulfate [Iron (65 MG 325 mg PO DAILY 07/10/23 11/16/23 History Elemental)] Lactulose [Cephulac] 30 gm PO QID 07/10/23 11/16/23 History Melatonin 5 mg PO HS 07/10/23 11/16/23 History Omeprazole 20 mg PO DAILY@0600 07/10/23 11/16/23 History Rifaximin [Xifaxan] 550 mg PO BID 07/10/23 11/16/23 History Vitamin E (Dl,Tocopheryl Acet) 400 unit PO DAILY 07/10/23 11/16/23 History [Vitamin E (400 Iu = 180 mg)] traZODone HCL [Desyrel] 50 mg PO HS 07/10/23 11/16/23 History FLUoxetine HCL 40 mg PO HS 07/15/23 11/16/23 History Cholecalciferol [Vitamin D3 (125 125 mcg PO DAILY 08/08/23 11/16/23 History Mcg = 5000 Iu)] Vit C/E/Zn/Coppr/Lutein/Zeaxan 1 cap PO BID 08/08/23 11/16/23 History [Preservision Areds 2 Softgel] Bumetanide [Bumex] 1 mg PO DAILY@0600 11/01/23 11/16/23 History Allergies Allergy/AdvReac Type Severity Reaction Status Date / Time No Known Allergies Allergy Verified 11/16/23 15:00 Physical Exam Vitals: Vital Signs Temp Pulse Pulse Resp BP BP BP 11/17/23 07:48 98.0 F 77 16 177/82 11/17/23 00:32 97.5 F L 96 18 170/69 11/16/23 23:10 97.7 F 16 161/76 11/16/23 22:05 57 L 18 154/74 11/16/23 18:00 57 L 16 183/79 11/16/23 17:07 53 L 16 183/85 11/16/23 16:41 52 L 16 187/99 11/16/23 15:11 97.9 F 58 L 16 191/87 11/16/23 14:53 97.9 F 60 16 Pulse Ox 11/17/23 07:48 96 11/17/23 00:32 94 L 11/16/23 23:10 96 11/16/23 22:05 98 11/16/23 18:00 95 11/16/23 17:07 100 11/16/23 16:41 100 11/16/23 15:11 99 11/16/23 14:53 Intake and Output 11/16/23 11/17/23 11/17/23 22:59 06:59 14:59 Other: # Voids 1 Weight 58.967 kg Results CBC & Chem 7: 11/17/23 03:52 11/17/23 03:52 Labs: Abnormal Lab Results - Last 24 Hours (Table) 11/16/23 11/16/23 11/16/23 Range/Units 15:25 15:25 15:53 RBC 3.53 L (3.80-5.40) m/uL Hgb (12.0-15.0) g/dL Hct (37.2-46.3) % MCV 103.2 H (80.0-100.0) fL RDW (11.5-14.5) % Eosinophils # (0.04-0.35) X 10*3/uL Basophils # (0.00-0.10) X 10*3/uL Sodium (135-145) mmol/L Potassium (3.5-5.5) mmol/L Chloride 115 H (98-107) mmol/L Carbon Dioxide (21.6-31.8) mmol/L BUN 24 H (7-17) mg/dL Creatinine 2.38 H (0.52-1.04) mg/dL Est GFR (CKD-EPI) (>=60) BUN/Creatinine Ratio (12.00-20.00) Ratio Glucose 135 H (74-99) mg/dL Magnesium (1.6-2.3) mg/dL AST 41 H (14-36) U/L Alkaline Phosphatase 154 H (38-126) U/L Ammonia (<30) umol/L Total Protein 6.2 L (6.3-8.2) g/dL Albumin 3.4 L (3.5-5.0) g/dL Urine Appearance Turbid H (Clear) Urine Protein Trace H (Negative) Ur Leukocyte Esterase Large H (Negative) Urine RBC 24 H (0-5) /hpf Urine WBC 64 H (0-5) /hpf Urine WBC Clumps Rare H (None) /hpf Ur Squamous Epith Cells 7 H (0-4) /hpf Urine Bacteria Few H (None) /hpf Hyaline Casts 6 H (0-2) /lpf Urine Mucus Rare H (None) /hpf U Benzodiazepines Scrn Detected H (NotDetected) 11/16/23 11/16/23 11/17/23 Range/Units 15:53 15:53 03:52 RBC 3.25 L (3.80-5.40) m/uL Hgb 10.2 L (12.0-15.0) g/dL Hct 31.0 L (37.2-46.3) % MCV (80.0-100.0) fL RDW 15.5 H (11.5-14.5) % Eosinophils # 0.78 H (0.04-0.35) X 10*3/uL Basophils # 0.17 H (0.00-0.10) X 10*3/uL Sodium (135-145) mmol/L Potassium (3.5-5.5) mmol/L Chloride (98-107) mmol/L Carbon Dioxide (21.6-31.8) mmol/L BUN (7-17) mg/dL Creatinine (0.52-1.04) mg/dL Est GFR (CKD-EPI) (>=60) BUN/Creatinine Ratio (12.00-20.00) Ratio Glucose (74-99) mg/dL Magnesium 2.4 H (1.6-2.3) mg/dL AST (14-36) U/L Alkaline Phosphatase (38-126) U/L Ammonia 54 H (<30) umol/L Total Protein (6.3-8.2) g/dL Albumin (3.5-5.0) g/dL Urine Appearance (Clear) Urine Protein (Negative) Ur Leukocyte Esterase (Negative) Urine RBC (0-5) /hpf Urine WBC (0-5) /hpf Urine WBC Clumps (None) /hpf Ur Squamous Epith Cells (0-4) /hpf Urine Bacteria (None) /hpf Hyaline Casts (0-2) /lpf Urine Mucus (None) /hpf U Benzodiazepines Scrn (NotDetected) 11/17/23 Range/Units 03:52 RBC (3.80-5.40) m/uL Hgb (12.0-15.0) g/dL Hct (37.2-46.3) % MCV (80.0-100.0) fL RDW (11.5-14.5) % Eosinophils # (0.04-0.35) X 10*3/uL Basophils # (0.00-0.10) X 10*3/uL Sodium 148 H (135-145) mmol/L Potassium 3.2 L (3.5-5.5) mmol/L Chloride 118 H (98-107) mmol/L Carbon Dioxide 20.4 L (21.6-31.8) mmol/L BUN (7-17) mg/dL Creatinine 2.3 H (0.52-1.04) mg/dL Est GFR (CKD-EPI) 23 L (>=60) BUN/Creatinine Ratio 10.17 L (12.00-20.00) Ratio Glucose (74-99) mg/dL Magnesium (1.6-2.3) mg/dL AST (14-36) U/L Alkaline Phosphatase 139 H (38-126) U/L Ammonia (<30) umol/L Total Protein 5.2 L (6.3-8.2) g/dL Albumin 3.4 L (3.5-5.0) g/dL Urine Appearance (Clear) Urine Protein (Negative) Ur Leukocyte Esterase (Negative) Urine RBC (0-5) /hpf Urine WBC (0-5) /hpf Urine WBC Clumps (None) /hpf Ur Squamous Epith Cells (0-4) /hpf Urine Bacteria (None) /hpf Hyaline Casts (0-2) /lpf Urine Mucus (None) /hpf U Benzodiazepines Scrn (NotDetected) Thrombosis Risk Factor Assmnt - Choose All That Apply Any of the Below Risk Factors Present?: Yes Each Factor Represents 1 point: Abnormal pulmonary function (COPD) Other Risk Factors: Yes Each Risk Factor Represents 2 Points: Age 61-74 years Other congenital or acquired thrombophilia - If yes, enter type in comment: No Thrombosis Risk Factor Assessment Total Risk Factor Score: 3 Thrombosis Risk Factor Assessment Level: Moderate Risk Assessment and Plan Time with Patient: Greater than 30
--- NOTE | 2023-11-17 13:42 | P.DS ---
Providers Date of admission: 11/16/23 19:50 Attending physician: Elie Delong MD Primary care physician: Samantha Wright Hospital Course: Final Diagnosis Hyperammonemia secondary to chronic liver cirrhosis treated with lactulose ammonia level is down to 18 Altered mental status secondary to acute hepatic encephalopathy secondary to elevated ammonia levels resolved Atrial fibrillation, paroxysmal questionable history - patient is not on any oral anticoagulation History of heart failure, chronic diastolic dysfunction no acute exacerbation on oral bumex. History of COPD with no acute exacerbation History of stroke Gastroesophageal reflux disease maintained on PPI which is resumed. History of hypertension Cirrhosis of the liver Chronic kidney disease stage IIIB at baseline creatinine Carotid artery disease Anxiety/depression Maintained on prozac has been resumed. Chronic nicotine use Discharge Disposition Patient is stable for discharge back to [facility] on the [address]. Patient should follow-up with Dr. Claudy Crump GI services on discharge. Ammonia level has improved down to 18 would recommend to repeat this level in 3 to 4 days on an outpatient basis. Patient will continue on oral lactulose 30 g four times a day scheduled with a goal of 2-3 loose bowel movements per day additionally patient will continue on her oral rifaximin twice a day for the elevated ammonia levels. Patient can be discharged back to [facility]. Hospital Course This is a pleasant 68-year-old female with medical history significant for fibrillation, heart failure, COPD, stroke, gastroesophageal reflux disease, hypertension, chronic liver cirrhosis and elevated ammonia levels patient is maintained on lactulose on an outpatient basis. Patient is obtained on Rifaximin also. Patient comes to the hospital with concern for altered mentation she is a permanent resident at [facility]. There was concern for elevation of her ammonia levels and she was sent over to the hospital for further evaluation and treatment. Patient states that prior to this her levels have been better. Patient was found to have a BUN of 24 creatinine of 2.38, ammonia level of 54 on admission. Her urinalysis shows large leukocyte Estrace, not overly suspicious for urinary tract infection. She denies any dysuria urgency burning or discomfort she is having no abdominal pain no nausea vomiting or diarrhea. She states that she is not having any chest pain no shortness of breath no fever or chills. She is positive for benzodiazepines. her viral panel is negative for influenza RSV and COVID. Her brain CT shows no acute intracranial process. There is nonspecific white matter changes likely secondary to chronic small vessel ischemic disease. There are remote injuries to the cerebellar hemispheres. X-ray reveals no acute cardiopulmonary disease process there are COPD changes. Was started on lactulose overnight 30 g 4 times a day and her ammonia level is down to 18. We would recommend to continue on an increased dose of lactulose on discharge with a goal of 2-3 loose bowel movements per day and this patient can return to [facility]. Her mentation is improved she is evaluated today she is alert and oriented and feels back to her baseline. Patient can return back go [facility] today. Please see medication reconciliation for a list of current medications. Thank you for allowing us to participate in the care of this patient. The impression and plan of care has been dictated by Ilene Hinkle, Nurse Practitioner as directed. Dr. Rudi MD I have performed a history and physical examination and medical decision making of this patient, discussed the same with the dictator, and agree with the dictators assessment and plan as written, documented as a scribe. Based on total visit time, I have performed more than 50% of this visit. Patient Condition at Discharge: Stable Plan - Discharge Summary Discharge Rx Participant: No New Discharge Prescriptions: Continue Aspirin EC [Ecotrin Low Dose] 81 mg PO DAILY Ferrous Sulfate [Iron (65 MG Elemental)] 325 mg PO DAILY Melatonin 5 mg PO HS Rifaximin [Xifaxan] 550 mg PO BID FLUoxetine HCL 40 mg PO HS Cholecalciferol [Vitamin D3 (125 Mcg = 5000 Iu)] 125 mcg PO DAILY Vit C/E/Zn/Coppr/Lutein/Zeaxan [Preservision Areds 2 Softgel] 1 cap PO BID Bumetanide [BUMEX] 1 mg PO DAILY@0600 Lactulose [Cephulac] 30 gm PO QID traZODone HCL [Desyrel] 50 mg PO HS Omeprazole 20 mg PO DAILY@0600 Vitamin E (Dl,Tocopheryl Acet) [Vitamin E (400 Iu = 180 mg)] 400 unit PO DAILY Discharge Medication List Aspirin EC [Ecotrin Low Dose] 81 mg PO DAILY 02/08/19 [History] Ferrous Sulfate [Iron (65 MG Elemental)] 325 mg PO DAILY 07/10/23 [History] Lactulose [Cephulac] 30 gm PO QID 07/10/23 [History] Melatonin 5 mg PO HS 07/10/23 [History] Omeprazole 20 mg PO DAILY@0600 07/10/23 [History] Rifaximin [Xifaxan] 550 mg PO BID 07/10/23 [History] Vitamin E (Dl,Tocopheryl Acet) [Vitamin E (400 Iu = 180 mg)] 400 unit PO DAILY 07/10/23 [History] traZODone HCL [Desyrel] 50 mg PO HS 07/10/23 [History] FLUoxetine HCL 40 mg PO HS 07/15/23 [History] Cholecalciferol [Vitamin D3 (125 Mcg = 5000 Iu)] 125 mcg PO DAILY 08/08/23 [History] Vit C/E/Zn/Coppr/Lutein/Zeaxan [Preservision Areds 2 Softgel] 1 cap PO BID 08/08/23 [History] Bumetanide [BUMEX] 1 mg PO DAILY@0600 11/01/23 [History] Follow up Appointment(s)/Referral(s): Samantha Wright DO [Primary Care Provider] - 1-2 days [facility] on the [address], [NON-STAFF] - As Needed Ambulatory/Diagnostic Orders: Basic Metabolic Panel [LAB.AMB] Location: None Selected Complete Blood Count w/diff [LAB.AMB] Location: None Selected Miscellaneous Lab Order [LAB.AMB] Time Frame: 4 Days, Location: None Selected Activity/Diet/Wound Care/Special Instructions: Check ammonia level in 4 days Continue on Rifaximin and Lactulose Goal of 2 to 3 loose bowel movements per day. Discharge Disposition: TRANSFER TO SNF/ECF
[2023-11-17] MEDS: RIFAXIMIN 550 MG PO SCH (13:56)
[2023-11-17] MEDS: POTASSIUM CHLORIDE ER 20 MEQ TAB.ER PO SCH (13:58)
[2023-11-17 14:43] VITALS: BP 169/65; PULSE 71; RESP 12; TEMP 97.4
[2023-11-17] MEDS ORDERED: MELATONIN 5 MG TABLET PO SCH (21:00)
[2023-11-17] MEDS ORDERED: RIFAXIMIN 550 MG TAB (PTS OWN) PO SCH (21:00)
[2023-11-17] MEDS ORDERED: traZODone HCL 50 MG TAB PO SCH (21:00)
[2023-11-17] MEDS ORDERED: FLUoxetine HCL 20 MG CAP PO SCH (21:00)
[2023-11-17] MEDS ORDERED: VIT A,C & E-LUTEIN-MINERALS 1 EACH TAB PO SCH (21:00)
[2023-11-18] MEDS ORDERED: PANTOPRAZOLE 40 MG TABLET PO SCH (06:00)
[2023-11-18] MEDS ORDERED: FERROUS SULFATE 325 MG TAB PO SCH (09:00)
[2023-11-18] MEDS ORDERED: CHOLECALCIFEROL 125 MCG (5000 IU) TABLET PO SCH (09:00)
== END 2023-11-17 16:00 | DRG 442 ==
LOC: EC 14:49 → 4SSUR 19:50
PROVIDERS: ADMIT Internal Medicine; ATTEND Internal Medicine
DX: K76.82 Hepatic encephalopathy (principal); I13.0 Hypertensive heart and chronic kidney disease with heart failure and stage 1 through stage 4 chronic kidney disease, or unspecified chronic kidney disease; I50.32 Chronic diastolic (congestive) heart failure; K74.60 Unspecified cirrhosis of liver; N18.32 Chronic kidney disease, stage 3b; J44.9 Chronic obstructive pulmonary disease, unspecified; I48.0 Paroxysmal atrial fibrillation; F32.A Depression, unspecified; K21.9 Gastro-esophageal reflux disease without esophagitis; F41.9 Anxiety disorder, unspecified; I87.2 Venous insufficiency (chronic) (peripheral); K44.9 Diaphragmatic hernia without obstruction or gangrene; M19.90 Unspecified osteoarthritis, unspecified site; Z79.82 Long term (current) use of aspirin; Z79.899 Other long term (current) drug therapy; Z86.73 Personal history of transient ischemic attack (TIA), and cerebral infarction without residual deficits; Z87.891 Personal history of nicotine dependence; Z96.642 Presence of left artificial hip joint
CPT/HCPCS: 36415; 70450; 71046; 80053; 80306; 81001; 82140; 83735; 85025; 85610; 85730; 87636; 93005; 96361; 96365; 96366; 96368; 96375; 99285

== ENCOUNTER 2023-12-06 11:15 | Inpatient (IN) | payer MEDICARE, OTHER ==
[2023-12-06] MEDS ORDERED: SODIUM CHLORIDE 0.9% 1,000 ML BAG ONE (12:00)
[2023-12-06] MEDS ORDERED: LACTULOSE 20 GM/30 ML CUP ONE ×3 (12:08→18:45)
[2023-12-06] MEDS ORDERED: traZODone HCL 50 MG TAB ONE (20:08)
[2023-12-06] MEDS ORDERED: FLUoxetine HCL 20 MG CAP ONE (20:08)
[2023-12-07] MEDS ORDERED: LACTULOSE 20 GM/30 ML CUP ONE ×5 (00:33→23:54)
[2023-12-07] MEDS ORDERED: PANTOPRAZOLE 40 MG TABLET PO ONE (06:37)
[2023-12-07] MEDS ORDERED: FERROUS SULFATE 325 MG TAB PO ONE (09:02)
[2023-12-07] MEDS ORDERED: CHOLECALCIFEROL 125 MCG (5000 IU) TABLET ONE (09:03)
[2023-12-07] MEDS ORDERED: POTASSIUM CHLORIDE ER 20 MEQ TAB.ER PO ONE (09:03)
[2023-12-07] MEDS ORDERED: ASPIRIN 81 MG ONE (09:03)
[2023-12-07] MEDS ORDERED: traZODone HCL 50 MG TAB ONE (22:05)
[2023-12-07] MEDS ORDERED: FLUoxetine HCL 20 MG CAP ONE (22:06)
[2023-12-07] MEDS ORDERED: VIT A,C & E-LUTEIN-MINERALS 1 EACH TAB ONE (23:59)
[2023-12-07] MEDS ORDERED: VITAMIN E (DL,TOCOPHERYL ACET) 400 UNIT (180 MG) CAP ONE (23:59)
[2023-12-07] MEDS ORDERED: BUMETANIDE 1 MG TAB ONE (23:59)
[2023-12-08] MEDS ORDERED: LACTULOSE 20 GM/30 ML CUP ONE ×2 (05:05→12:04)
[2023-12-08] MEDS ORDERED: PANTOPRAZOLE 40 MG TABLET PO ONE (05:05)
[2023-12-08] MEDS ORDERED: FERROUS SULFATE 325 MG TAB PO ONE (09:44)
[2023-12-08] MEDS ORDERED: ASPIRIN 81 MG ONE (09:44)
[2023-12-08] MEDS ORDERED: POTASSIUM CHLORIDE ER 20 MEQ TAB.ER PO ONE (09:44)
[2023-12-08] MEDS ORDERED: CHOLECALCIFEROL 125 MCG (5000 IU) TABLET ONE (09:49)
[2023-12-08] MEDS ORDERED: VITAMIN E (DL,TOCOPHERYL ACET) 400 UNIT (180 MG) CAP ONE (23:59)
[2023-12-08] MEDS ORDERED: VIT A,C & E-LUTEIN-MINERALS 1 EACH TAB ONE (23:59)
[2023-12-08] MEDS ORDERED: BUMETANIDE 1 MG TAB ONE (23:59)
== END 2023-12-08 14:20 | DRG 443 ==
LOC: UNDODISIN 11:15 → 4SSUR 11:15
PROVIDERS: ADMIT Urology; ATTEND Urology
DX: K76.82 Hepatic encephalopathy (principal); K70.31 Alcoholic cirrhosis of liver with ascites; N18.9 Chronic kidney disease, unspecified; Z91.199 Patient's noncompliance with other medical treatment and regimen due to unspecified reason
CPT/HCPCS: 93005; 99285